=== PATIENT | male | born 1990 | race Hispanic/Latino ===

== ENCOUNTER 2019-10-01 09:03 | Inpatient (IN) | payer MEDICAID, OTHER, SELFPAY ==
[~2019-10-01] VITALS: Ht 180.3 cm; Wt 56.7 kg
[2019-10-01] MEDS ORDERED: SODIUM CHLORIDE 0.9% 1000ML 1,000 ML IV ONE ×2 (09:06→09:13)
[2019-10-01] MEDS ORDERED: ONDANSETRON HCL 4 MG/2 ML VIAL ONE (09:09)
[2019-10-01 09:50] LABS: BASOPHILS % (AUTO) 0.5 % (0.0-5.0); EOSINOPHILS % (AUTO) 1.1 % (0.0-8.0); LYMPHOCYTES % (AUTO) 7.2 % (21.0-51.0); MEAN CORPUSCULAR HEMOGLOBIN 32.5 pg (27.0-33.0); MEAN CORPUSCULAR HGB CONC 34.5 g/dL (32.0-36.0); MEAN CORPUSCULAR VOLUME 94.2 fL (79-99); MONOCYTES % (AUTO) 8.6 % (3.0-13.0); NEUTROPHILS % (AUTO) 82.2 % (40.0-77.0); PLATELET COUNT (AUTO) 240 K/uL (130-400); RED CELL DISTRIBUTION WIDTH 11.7 % (11.0-15.5); WHITE BLOOD COUNT (AUTO) 14.8 K/uL (4.8-10.8)
[2019-10-01] MEDS ORDERED: THIAMINE HCL 100 MG/ML 2ML VIAL ONE (09:50)
[2019-10-01 10:04] LABS: CREATININE 2.2 mg/dL (0.5-1.5); POTASSIUM 4.2 mmol/L (3.5-5.1)
[2019-10-01 10:11] LABS: ALBUMIN 4.4 g/dL (3.5-5.0); BILIRUBIN,TOTAL 1.8 mg/dL (0.2-1.0); TOTAL PROTEIN, SERUM 8.5 g/dL (6.0-8.3)
[2019-10-01 10:55] LABS: INR 1.12 (0.85-1.15); PARTIAL THROMBOPLASTIN TIME 28.5 SEC (26.3-35.5); PROTHROMBIN TIME 11.7 SEC (9.6-11.6)
[2019-10-01 10:57] LABS: APPEARANCE,URINE Cloudy (CLEAR); BILIRUBIN,URINE Moderate (NEGATIVE); COLOR,URINE Dark Yellow (YELLOW); GLUCOSE, URINE (UA) 500 mg/dL (NEGATIVE); KETONES,URINE 15 mg/dL (NEGATIVE); LEUKOCYTE ESTERASE ,URINE Negative (NEGATIVE); NITRATE,URINE Negative (NEGATIVE); OCCULT BLOOD,URINE Large (NEGATIVE); PH,URINE 5.5 (5.0-8.0); PROTEIN,URINE POS 2+ mg/dL (NEGATIVE)
[2019-10-01 11:01] LABS: HEMATOCRIT 60.3 % (42-54)
[2019-10-01 11:08] LABS: AMPHET/METH SCREEN,URINE NEGATIVE (NEGATIVE); BARBITURATE SCREEN, URINE NEGATIVE (NEGATIVE); BENZODIAZEPINES SCREEN,URINE NEGATIVE (NEGATIVE); CANNABINOID SCREEN,URINE NEGATIVE (NEGATIVE); COCAINE SCREEN,URINE NEGATIVE (NEGATIVE); OPIATE SCREEN,URINE NEGATIVE (NEGATIVE); PHENCYCLIDINE SCREEN,URINE NEGATIVE (NEGATIVE)
[2019-10-01] MEDS ORDERED: KETOROLAC TROMETHAMINE 30MG/ML ONE (11:10)
[2019-10-01] MEDS: SODIUM CHLORIDE 0.9% 1000ML 1,000 ML IV SCH ×2 (11:18→21:47)
[2019-10-01] MEDS ORDERED: PHARMACY COMMUNICATION MISC PRN (11:30)
[2019-10-01 11:49] LABS: MUCUS,URINE Moderate LPF (None Seen); SQUAMOUS EPITHELIAL CELL,UR Few /HPF (0-2); WBC,URINE 0-1 /HPF (0-1)
[2019-10-01 11:50] LABS: AMORPHOUS SEDIMENT,UR Few /LPF (None Seen); BACTERIA,URINE Few /HPF (None Seen)
[2019-10-01] MEDS ORDERED: HYDRALAZINE HCL 20 MG/ML VIAL ONE (11:52)
[2019-10-01] MEDS ORDERED: OSELTAMIVIR PHOSPHATE 75 MG CAP ONE (11:53)
[2019-10-01] MEDS ORDERED: HYDRALAZINE HCL 20 MG/ML VIAL IV PRN (12:00)
[2019-10-01] MEDS ORDERED: COMPOUND PO MISCELLANEOUS 1 EACH MISC MISC PRN (12:15)
[2019-10-01] MEDS ORDERED: METOPROLOL TARTRATE 1 MG/ML 5ML VIAL IV ONE (12:29)
[2019-10-01] MEDS ORDERED: FAMOTIDINE/PF 20 MG/2 ML VIAL IV ONE (13:00)
[2019-10-01 13:35] VITALS: BP 149/109
--- NOTE | 2019-10-01 14:15 | NUR ---
ER PT ADMITTED TO ROOM 319 WITH DX OF ACUTE PANCREATITIS. BANANA BAG UP AND STARTED THE INFUSION AT 100 MLHR. ASSESSMENT TO FOLLOW. ABDOMEN DISTENDED AND VERY TENDER.
[2019-10-01] MEDS: KETOROLAC TROMETHAMINE 30MG/ML IM PRN ×2 (14:27→20:59)
[2019-10-01] MEDS: THIAMINE HCL 100 MG, FOLIC ACID 1 MG, M.V.I. IV [ADULT] 10 ML in SODIUM CHLORIDE 0.9% 1... IV SCH (14:30)
[2019-10-01 16:00] VITALS: BP 148/102
[2019-10-01 19:00] VITALS: BP_SYST 158; BP_SYST 164; BP_DIAS 110; BP_DIAS 112
[2019-10-01] MEDS: FAMOTIDINE/PF 20 MG/2 ML VIAL IV SCH (20:57)
[2019-10-01] MEDS ORDERED: OSELTAMIVIR PHOSPHATE 75 MG CAP PO SCH (21:00)
[2019-10-01] MEDS ORDERED: OSELTAMIVIR PHOSPHATE 300 MG, WATER FOR INJECTION,STERILE 10 ML, COMPOUNDING VEHICLE SF... PO SCH ×3 (21:00)
[2019-10-01] MEDS: OSELTAMIVIR PHOSPHATE PO SCH ×2 (21:00)
[2019-10-01] MEDS: LORAZEPAM 2 MG/ML 1 ML VIAL IVP PRN (21:46)
[2019-10-01 23:39] VITALS: BP 131/77
[2019-10-02] VITALS (7 sets, daily range): BP systolic 135–163; BP diastolic 93–109
[2019-10-02] MEDS: ONDANSETRON HCL 4 MG/2 ML VIAL IVP PRN ×2 (01:17→15:52)
[2019-10-02] MEDS: LABETALOL HCL 5 MG/ML 20ML VIAL IV PRN ×2 (02:05→15:53)
[2019-10-02] MEDS: CEFTRIAXONE SODIUM 1 GM IVP SCH ×2 (02:17→12:30)
[2019-10-02] MEDS: SODIUM CHLORIDE 0.9% 1000ML 1,000 ML IV SCH ×3 (05:16→21:15)
[2019-10-02 05:57] LABS: BASOPHILS % (AUTO) 0.2 % (0.0-5.0); HEMATOCRIT 45.2 % (42-54); LYMPHOCYTES % (AUTO) 7.6 % (21.0-51.0); MEAN CORPUSCULAR HEMOGLOBIN 32.3 pg (27.0-33.0); MEAN CORPUSCULAR HGB CONC 33.4 g/dL (32.0-36.0); MEAN CORPUSCULAR VOLUME 96.8 fL (79-99); MONOCYTES % (AUTO) 8.2 % (3.0-13.0); NEUTROPHILS % (AUTO) 81.8 % (40.0-77.0); PLATELET COUNT (AUTO) 145 K/uL (130-400); RED BLOOD CELL COUNT(AUTO) 4.67 MIL/uL (4.50-6.20); RED CELL DISTRIBUTION WIDTH 12.3 % (11.0-15.5)
[2019-10-02 06:02] LABS: HEMOGLOBIN A1C 5.3 % (4.0-6.0)
[2019-10-02 06:35] LABS: ALBUMIN 2.8 g/dL (3.5-5.0); BILIRUBIN,DIRECT 0.3 mg/dL (0.0-0.3); BILIRUBIN,TOTAL 1.3 mg/dL (0.2-1.0); CREATININE 1.2 mg/dL (0.5-1.5); POTASSIUM 3.9 mmol/L (3.5-5.1); TOTAL PROTEIN, SERUM 5.8 g/dL (6.0-8.3)
--- NOTE | 2019-10-02 07:00 | NUR ---
PATIENT UPDATE Pt resting in bed with face flushed, afebrile, CIWA score at 19, ativan 2 mg given iv push as per protocol. Admited to drinking 6 packs per day, alert and oriented x 3. Woke up in the middle of the night confused, heart rate SVT bet 150's to 160's. Alexa Mcneill called for orders. Labetalol 10 mg given iv push, heart rate down to 120's after an hour. Medicated for pain with toradol , blood pressure initially in the 160's, hydralazine 10 mg iv. 12 lead ekg done , started pt on ceftriaxone 1 gm ivpb, iv fluid rate up to 150 cc/hr, tolerated well. Slept fairly overnight, bp more stable in the early am.ON seizure precaution bec of alcohol withdrawal symptoms, willl continue to monitor.
[2019-10-02 08:16] LABS: CRP QUANTITATIVE 215.1 mg/L (0.00-9.0)
[2019-10-02] MEDS: HYDROMORPHONE HCL 0.5 MG/0.5 ML ML IVP PRN ×4 (09:28→21:56)
--- NOTE | 2019-10-02 09:30 | NUR ---
C/O OF SOB, CHEST TIGHTNESS, 12 LEAD EKG ORDERED, PLACED ON 02 AND GIVEN 50MG OF LIBRIUM. DR. BECKER NOTIFIED AND IS NOW IN ROOM WITH PT.
[2019-10-02] MEDS: OSELTAMIVIR PHOSPHATE PO SCH ×4 (09:32→21:54)
--- NOTE | 2019-10-02 09:37 | NUR ---
HR sinus tach 120's 130's on telemetry. BP 165/113, O2 sat 97% room air. Diaphoretic, tremors noted. Placed on [address] NC[address] Not[address] Mackay, rec'd order for librium 50 mg po stat and 12v lead ekg. Orders entered and honored.
[2019-10-02] MEDS ORDERED: CHLORDIAZEPOXIDE HCL 25 MG CAP PO SCH (09:43)
--- NOTE | 2019-10-02 10:30 | NUR ---
ORDER IN PLACE TO TRANSFER PT. TO PCCU FOR CLOSER MONITORING, WILL BE GOING TO ROOM 231. REPORT CALLED IN TO AVINASH MCGHEE.
--- NOTE | 2019-10-02 11:30 | NUR ---
TRANSFERRED TO 2ND. FLOOR, ROOM 231.
--- NOTE | 2019-10-02 11:32 | NUR ---
PAGED DR. DUTTA RE:CONSULT.
--- NOTE | 2019-10-02 11:40 | NUR ---
DR. DUTTA RETURNED CALL
[2019-10-02] MEDS: PANTOPRAZOLE 40 MG/VIAL IVP SCH (12:30)
[2019-10-02] MEDS: THIAMINE HCL 100 MG, FOLIC ACID 1 MG, M.V.I. IV [ADULT] 10 ML in SODIUM CHLORIDE 0.9% 1... IV SCH (12:30)
[2019-10-02] MEDS: CHLORDIAZEPOXIDE HCL 25 MG CAP PO PRN ×2 (16:09→21:53)
--- NOTE | 2019-10-02 16:10 | NUR ---
SPOKE WITH DR. MCCLAIN AND INFORMED HIM OF THE NEW CONSULT. PER MD, TACHYCARDIA IS EXPECTED IN ACUTE PANCREATITIS AND ETOH WITHDRAWAL. INFORMED MD THAT DR. BECKER WAS ALSO CONCERNED ABOUT SHORT MS INTERVALS. MD SAID TO CALL HIM IF HEART RATE GOES TO 130'S. WILL CONTINUE TO MONITOR.
[2019-10-02] MEDS: LACTATED RINGERS 1000ML 1,000 ML IV SCH ×3 (16:15→23:44)
--- NOTE | 2019-10-02 19:12 | NUR ---
D/C PLAN CM spoke to pt regarding d/c planning. Mother at bedside. Pt is ind. with ADL's. States mother can assist in care if needed. CM provided community resources packet. Plan to home. No needs verbalized or identified. CM to f/u Addendum: 10/02/19 at 1917 by ROSA MEDELLIN CM Amended: Links added.
[2019-10-02] MEDS: FAMOTIDINE/PF 20 MG/2 ML VIAL IV SCH (21:54)
[2019-10-03] VITALS (7 sets, daily range): BP systolic 142–163; BP diastolic 81–103
[2019-10-03] MEDS: LACTATED RINGERS 1000ML 1,000 ML IV SCH ×8 (00:15→21:55)
[2019-10-03] MEDS: CEFTRIAXONE SODIUM 1 GM IVP SCH ×2 (01:38→15:12)
[2019-10-03] MEDS: HYDROMORPHONE HCL 0.5 MG/0.5 ML ML IVP PRN (01:43)
[2019-10-03] MEDS: SODIUM CHLORIDE 0.9% 1000ML 1,000 ML IV SCH ×4 (03:55→21:56)
[2019-10-03] MEDS: ONDANSETRON HCL 4 MG/2 ML VIAL IVP PRN ×3 (04:08→17:53)
[2019-10-03 04:42] LABS: ALBUMIN 2.6 g/dL (3.5-5.0); BILIRUBIN,DIRECT 0.3 mg/dL (0.0-0.3); BILIRUBIN,TOTAL 1.3 mg/dL (0.2-1.0); CREATININE 1.1 mg/dL (0.5-1.5); POTASSIUM 3.9 mmol/L (3.5-5.1); TOTAL PROTEIN, SERUM 5.5 g/dL (6.0-8.3)
[2019-10-03] MEDS: HYDROMORPHONE HCL 2 MG/ML VIAL IVP PRN ×4 (08:17→22:15)
[2019-10-03] MEDS: OSELTAMIVIR PHOSPHATE PO SCH ×4 (08:18→22:09)
[2019-10-03] MEDS: PANTOPRAZOLE 40 MG/VIAL IVP SCH (08:18)
[2019-10-03] MEDS: LORAZEPAM 2 MG/ML 1 ML VIAL IVP PRN (09:39)
[2019-10-03] MEDS ORDERED: COMPOUND IV REFRIGERATED 1 EACH IVSOLN MISC PRN (10:15)
[2019-10-03] MEDS: LABETALOL HCL 5 MG/ML 20ML VIAL IV PRN ×2 (11:00→17:59)
[2019-10-03] MEDS: THIAMINE HCL 100 MG, FOLIC ACID 1 MG, M.V.I. IV [ADULT] 10 ML in SODIUM CHLORIDE 0.9% 1... IV SCH (13:00)
[2019-10-03] MEDS: FAMOTIDINE/PF 20 MG/2 ML VIAL IV SCH (21:53)
[2019-10-04] MEDS: LACTATED RINGERS 1000ML 1,000 ML IV SCH ×6 (00:15→20:15)
[2019-10-04] MEDS: CEFTRIAXONE SODIUM 1 GM IVP SCH ×2 (00:54→13:34)
[2019-10-04] MEDS: ONDANSETRON HCL 4 MG/2 ML VIAL IVP PRN ×4 (00:54→22:24)
[2019-10-04] MEDS: LORAZEPAM 2 MG/ML 1 ML VIAL IVP PRN (01:05)
[2019-10-04] MEDS: SODIUM CHLORIDE 0.9% 1000ML 1,000 ML IV SCH (03:35)
[2019-10-04 04:26] VITALS: BP 145/81
[2019-10-04 04:39] LABS: BASOPHILS % (AUTO) 0.2 % (0.0-5.0); EOSINOPHILS % (AUTO) 0.8 % (0.0-8.0); HEMATOCRIT 35.4 % (42-54); LYMPHOCYTES % (AUTO) 10.9 % (21.0-51.0); MEAN CORPUSCULAR HEMOGLOBIN 33.1 pg (27.0-33.0); MEAN CORPUSCULAR HGB CONC 33.6 g/dL (32.0-36.0); MEAN CORPUSCULAR VOLUME 98.6 fL (79-99); NEUTROPHILS % (AUTO) 71.6 % (40.0-77.0); PLATELET COUNT (AUTO) 134 K/uL (130-400); RED BLOOD CELL COUNT(AUTO) 3.59 MIL/uL (4.50-6.20); RED CELL DISTRIBUTION WIDTH 12.3 % (11.0-15.5); WHITE BLOOD COUNT (AUTO) 9.1 K/uL (4.8-10.8)
[2019-10-04 04:53] LABS: ALBUMIN 2.3 g/dL (3.5-5.0); BILIRUBIN,DIRECT 0.4 mg/dL (0.0-0.3); BILIRUBIN,TOTAL 1.2 mg/dL (0.2-1.0); CREATININE 1.1 mg/dL (0.5-1.5); MAGNESIUM 2.1 mg/dL (1.80-2.40); PHOSPHORUS 1.2 mg/dL (2.5-4.9); POTASSIUM 3.8 mmol/L (3.5-5.1); TOTAL PROTEIN, SERUM 5.4 g/dL (6.0-8.3)
[2019-10-04] MEDS: HYDROMORPHONE HCL 0.5 MG/0.5 ML ML IVP PRN ×4 (06:03→22:25)
[2019-10-04 08:21] VITALS: BP 142/93
[2019-10-04] MEDS: PANTOPRAZOLE 40 MG/VIAL IVP SCH (10:28)
[2019-10-04] MEDS: OSELTAMIVIR PHOSPHATE PO SCH ×4 (10:30→20:05)
[2019-10-04 12:10] VITALS: BP 152/83
[2019-10-04] MEDS ORDERED: SODIUM CHLORIDE 0.9% 50 ML IV ONE (13:29)
[2019-10-04] MEDS: NEUTRA-PHOS PACKET 1 EACH PO SCH ×3 (13:35→20:13)
[2019-10-04 15:59] VITALS: BP 145/90
[2019-10-04] MEDS ORDERED: LOPERAMIDE 1 MG/7.5 ML UDCUP PO SCH (17:15)
[2019-10-04] MEDS ORDERED: LOPERAMIDE HCL 2 MG CAP PO SCH (17:15)
--- NOTE | 2019-10-04 17:31 | NUR ---
TRANSFER REPORT REPORT CALLED TO DELIA DA SILVA. PATIENT BEING TRANSFERRED TO ROOM 424. PATIENT IS ON TELEMETRY MONITORING AND HAS BEEN RUNNING SINUS TACHY IN 110'S.
[2019-10-04 19:00] VITALS: BP 129/77
[2019-10-04] MEDS: FAMOTIDINE/PF 20 MG/2 ML VIAL IV SCH (20:05)
[2019-10-04] MEDS ORDERED: LOPERAMIDE HCL 2 MG CAP PO PRN (21:00)
--- NOTE | 2019-10-04 22:25 | NUR ---
PAIN/NAUSEA Pt requesting medication for pain and nausea,medicated with Dilaudid and Zofran iv.
[2019-10-04 23:00] VITALS: BP 137/89
--- NOTE | 2019-10-04 23:15 | NUR ---
MED EFFECT Pt resting quietly,denies pain or discomfort.
--- NOTE | 2019-10-04 23:18 | NUR ---
SINUS TACH Pt.s sinus tachy 108 as per radiation monitor.
[2019-10-05] MEDS: CEFTRIAXONE SODIUM 1 GM IVP SCH ×2 (01:41→14:25)
[2019-10-05] MEDS: HYDROMORPHONE HCL 0.5 MG/0.5 ML ML IVP PRN (02:57)
[2019-10-05 03:00] VITALS: BP 141/85
[2019-10-05 05:18] LABS: BASOPHILS % (AUTO) 0.3 % (0.0-5.0); EOSINOPHILS % (AUTO) 1.5 % (0.0-8.0); HEMATOCRIT 33.3 % (42-54); LYMPHOCYTES % (AUTO) 12.3 % (21.0-51.0); MEAN CORPUSCULAR HEMOGLOBIN 32.7 pg (27.0-33.0); MEAN CORPUSCULAR HGB CONC 33.3 g/dL (32.0-36.0); MEAN CORPUSCULAR VOLUME 98.2 fL (79-99); MONOCYTES % (AUTO) 18.8 % (3.0-13.0); NEUTROPHILS % (AUTO) 65.5 % (40.0-77.0); PLATELET COUNT (AUTO) 167 K/uL (130-400); RED BLOOD CELL COUNT(AUTO) 3.39 MIL/uL (4.50-6.20); RED CELL DISTRIBUTION WIDTH 12.1 % (11.0-15.5); WHITE BLOOD COUNT (AUTO) 9.4 K/uL (4.8-10.8)
[2019-10-05 05:29] LABS: ALBUMIN 2.2 g/dL (3.5-5.0); BILIRUBIN,DIRECT 0.3 mg/dL (0.0-0.3); BILIRUBIN,TOTAL 0.9 mg/dL (0.2-1.0); CREATININE 1.1 mg/dL (0.5-1.5); MAGNESIUM 2.1 mg/dL (1.80-2.40); PHOSPHORUS 2.5 mg/dL (2.5-4.9); POTASSIUM 3.4 mmol/L (3.5-5.1); TOTAL PROTEIN, SERUM 5.1 g/dL (6.0-8.3)
[2019-10-05] MEDS: LACTATED RINGERS 1000ML 1,000 ML IV SCH ×2 (05:38→16:14)
[2019-10-05] MEDS: CHLORDIAZEPOXIDE HCL 25 MG CAP PO PRN (05:41)
[2019-10-05 07:30] VITALS: BP 146/80
[2019-10-05] MEDS: NEUTRA-PHOS PACKET 1 EACH PO SCH ×3 (09:22→18:37)
[2019-10-05] MEDS: OSELTAMIVIR PHOSPHATE PO SCH ×4 (09:24→20:22)
[2019-10-05] MEDS: PANTOPRAZOLE 40 MG/VIAL IVP SCH (09:24)
[2019-10-05] MEDS: HYDROMORPHONE HCL 2 MG/ML VIAL IVP PRN ×3 (09:28→22:48)
[2019-10-05] MEDS: ONDANSETRON HCL 4 MG/2 ML VIAL IVP PRN ×3 (09:28→22:47)
[2019-10-05 11:00] VITALS: BP 130/89
[2019-10-05 11:23] LABS: AMYLASE 141 U/L (25-115); LIPASE 652 U/L (114-286)
[2019-10-05 16:00] VITALS: BP 144/91
[2019-10-05 19:00] VITALS: BP 146/99
[2019-10-05] MEDS: FAMOTIDINE/PF 20 MG/2 ML VIAL IV SCH (20:22)
--- NOTE | 2019-10-05 20:25 | NUR ---
MEDS SHIFT ASSESSMENT DONE, PLEASE REFER TO CHART. DUE MEDS ADMINISTERED, TOLERATED WELL. KEPT RESTED AND COMFORTABLE IN BED. WILL MONITOR PT. CALL LIGHT WITHIN REACH. Addendum: 10/06/19 at 0122 by BRAD CHIRINOS RN RN Amended: Links added.
--- NOTE | 2019-10-05 22:48 | NUR ---
PAIN PT COMPLAINTS OF ABDOMINAL PAINS AND UPSET STOMACH. MEDICATED WITH DILAUDID AND ZOFRAN IV. KEPT NPO ORDERED. WILL RE-ASSESS PT.
[2019-10-06] VITALS: BP 143/92
[2019-10-06] MEDS: CEFTRIAXONE SODIUM 1 GM IVP SCH ×2 (00:57→15:29)
--- NOTE | 2019-10-06 01:05 | NUR ---
PAIN PT CALLS AND CLAIMS OF ABDOMINAL PAINS AND INABILITY TO PASS GAS. WARM PACKS APPLIED TO THE ABDOMEN. PAGED AJ, HOSPICE LIAISON HOSPITALIST DUST PULLER, VIA ANSWERING SERVICE. HOSPICE LIAISON CALLED BACK WITH NEW MED ORDER. MEDICATED PT.
[2019-10-06] MEDS ORDERED: KETOROLAC TROMETHAMINE 15MG/ML ONE (01:08)
[2019-10-06] MEDS ORDERED: KETOROLAC TROMETHAMINE 15MG/ML IV ONE (01:15)
[2019-10-06] MEDS: LACTATED RINGERS 1000ML 1,000 ML IV SCH ×3 (02:08→22:15)
[2019-10-06 04:00] VITALS: BP 134/88
[2019-10-06 04:51] LABS: BASOPHILS % (AUTO) 0.4 % (0.0-5.0); EOSINOPHILS % (AUTO) 2.1 % (0.0-8.0); HEMATOCRIT 33.3 % (42-54); LYMPHOCYTES % (AUTO) 16.5 % (21.0-51.0); MEAN CORPUSCULAR HEMOGLOBIN 32.6 pg (27.0-33.0); MEAN CORPUSCULAR HGB CONC 33.3 g/dL (32.0-36.0); MEAN CORPUSCULAR VOLUME 97.9 fL (79-99); MONOCYTES % (AUTO) 19.7 % (3.0-13.0); NEUTROPHILS % (AUTO) 57.8 % (40.0-77.0); PLATELET COUNT (AUTO) 215 K/uL (130-400); RED CELL DISTRIBUTION WIDTH 12.1 % (11.0-15.5); WHITE BLOOD COUNT (AUTO) 10.3 K/uL (4.8-10.8)
[2019-10-06 05:24] LABS: POTASSIUM 3.5 mmol/L (3.5-5.1)
--- NOTE | 2019-10-06 05:32 | NUR ---
ROUNDS PT IS RESTING WELL, FAIRLY ASLEEP. NO DISTRESS NOTED. KEPT COMFORTABLE AND UNDISTURBED. FOR MORE CARE.
[2019-10-06 07:30] VITALS: BP 142/95
[2019-10-06] MEDS: PANTOPRAZOLE 40 MG/VIAL IVP SCH (08:42)
[2019-10-06 11:00] VITALS: BP 147/94
[2019-10-06] MEDS: OSELTAMIVIR PHOSPHATE PO SCH ×2 (15:29)
[2019-10-06 16:00] VITALS: BP 140/85
[2019-10-06] MEDS ORDERED: IOHEXOL 350 MG/ML 100ML INFUS..BTL IV ONE (17:12)
[2019-10-06 19:00] VITALS: BP 150/90
[2019-10-06] MEDS: ONDANSETRON HCL 4 MG/2 ML VIAL IVP PRN (20:31)
[2019-10-06] MEDS: FAMOTIDINE/PF 20 MG/2 ML VIAL IV SCH (20:31)
[2019-10-06] MEDS: HYDROMORPHONE HCL 0.5 MG/0.5 ML ML IVP PRN (20:32)
[2019-10-06] MEDS: SIMETHICONE 80 MG TAB.CHEW PO PRN (23:46)
[2019-10-07] VITALS: BP 140/90
[2019-10-07] MEDS: CEFTRIAXONE SODIUM 1 GM IVP SCH (02:28)
[2019-10-07 04:00] VITALS: BP 165/94
[2019-10-07 04:20] LABS: HEMATOCRIT 32.7 % (42-54); MEAN CORPUSCULAR HGB CONC 34.3 g/dL (32.0-36.0); MEAN CORPUSCULAR VOLUME 96.5 fL (79-99); PLATELET COUNT (AUTO) 264 K/uL (130-400); RED BLOOD CELL COUNT(AUTO) 3.39 MIL/uL (4.50-6.20); RED CELL DISTRIBUTION WIDTH 12.3 % (11.0-15.5); WHITE BLOOD COUNT (AUTO) 11.8 K/uL (4.8-10.8)
[2019-10-07 04:27] LABS: BAND NEUTROPHILS % (MANUAL) 7 % (0-2); LYMPHOCYTES % (MANUAL) 10 % (22-44); MAN.DIFF COMMENT-IMPRESSION MANUAL DIFFERENTIAL; MONOCYTES % (MANUAL) 3 % (2-9); SEGMENTED NEUTROPHILS % 80 % (40-70)
[2019-10-07 04:28] LABS: PLATELET MORPHOLOGY COMMENT ADEQUATE
[2019-10-07] MEDS ORDERED: LIDOCAINE 5% TOPICAL PATCH TP ONE ×2 (04:30→06:27)
[2019-10-07 04:36] LABS: POTASSIUM 3.3 mmol/L (3.5-5.1)
[2019-10-07] MEDS: ONDANSETRON HCL 4 MG/2 ML VIAL IVP PRN ×2 (04:54→11:18)
[2019-10-07] MEDS: LACTATED RINGERS 1000ML 1,000 ML IV SCH ×3 (04:55→23:21)
[2019-10-07] MEDS: HYDROMORPHONE HCL 2 MG/ML VIAL IVP PRN (04:55)
[2019-10-07 08:00] VITALS: BP 138/87
[2019-10-07] MEDS: PANTOPRAZOLE 40 MG/VIAL IVP SCH (09:04)
[2019-10-07] MEDS: HYDROMORPHONE HCL 0.5 MG/0.5 ML ML IVP PRN ×3 (11:18→20:56)
[2019-10-07] MEDS ORDERED: LIDOCAINE HCL-MPF 1% 2ML VIAL IV PRN (11:45)
[2019-10-07 11:52] VITALS: BP 140/88
[2019-10-07 11:58] LABS: AMYLASE 148 U/L (25-115); LIPASE 1004 U/L (114-286)
[2019-10-07] MEDS: MEROPENEM 1 GM VIAL IVP SCH ×2 (12:44→20:48)
--- NOTE | 2019-10-07 14:19 | NUR ---
NUTRITION RECOMMENDATIONS SEVERE ALCOHOLIC PANCREATITIS. NPO X 6 DAYS. LABS REVIEWED (LIPASE TRENDING DOWN SLOWLY). MEDS REVIEWED. LBM: 10/05. SKIN IS INTACT. RD RECOMMENDS TO START PPN USING CLINIMIX 4.25/5 AT 75ML/HR RUN LIPID PANEL THU-THU-THU ADD 10ML MULTIVITAMINS RECOMMEND THIAMINE SUPPLEMENT DAILY MONITOR K, P, MG, BG, TG, CMP RD WILL CONTINUE TO MONITOR AND FOLLOW UP Addendum: 10/07/19 at [address] Amended: Links added.
[2019-10-07 16:00] VITALS: BP 147/90
[2019-10-07] MEDS: POTASSIUM CHLORIDE 20MEQ/100ML 100 ML IV PRN ×2 (16:05→23:21)
[2019-10-07 19:30] VITALS: BP 158/99
[2019-10-07] MEDS: FAMOTIDINE/PF 20 MG/2 ML VIAL IV SCH (22:54)
[2019-10-08] VITALS: BP 140/92
[2019-10-08] MEDS: HYDROMORPHONE HCL 0.5 MG/0.5 ML ML IVP PRN ×4 (01:30→19:36)
[2019-10-08] MEDS: MEROPENEM 1 GM VIAL IVP SCH ×3 (03:34→19:35)
[2019-10-08 04:00] VITALS: BP 142/87
[2019-10-08 05:42] LABS: BASOPHILS % (AUTO) 0.3 % (0.0-5.0); EOSINOPHILS % (AUTO) 2.2 % (0.0-8.0); HEMATOCRIT 34.1 % (42-54); LYMPHOCYTES % (AUTO) 13.8 % (21.0-51.0); MEAN CORPUSCULAR HEMOGLOBIN 32.9 pg (27.0-33.0); MEAN CORPUSCULAR HGB CONC 33.4 g/dL (32.0-36.0); MEAN CORPUSCULAR VOLUME 98.3 fL (79-99); MONOCYTES % (AUTO) 15.1 % (3.0-13.0); NEUTROPHILS % (AUTO) 65.4 % (40.0-77.0); PLATELET COUNT (AUTO) 320 K/uL (130-400); RED BLOOD CELL COUNT(AUTO) 3.47 MIL/uL (4.50-6.20); RED CELL DISTRIBUTION WIDTH 12.5 % (11.0-15.5); WHITE BLOOD COUNT (AUTO) 12.1 K/uL (4.8-10.8)
[2019-10-08 06:00] LABS: POTASSIUM 3.4 mmol/L (3.5-5.1)
[2019-10-08 08:58] VITALS: BP 136/89
[2019-10-08] MEDS ORDERED: M.V.I. IV [ADULT] 10 ML in CLINIMIX E 4.25%-5% SOLUTION 2,000 ML IV SCH (09:00)
[2019-10-08] MEDS: PANTOPRAZOLE 40 MG/VIAL IVP SCH (09:19)
[2019-10-08] MEDS: SIMETHICONE 80 MG TAB.CHEW PO PRN (09:43)
[2019-10-08] MEDS: ONDANSETRON HCL 4 MG/2 ML VIAL IVP PRN ×2 (09:43→13:56)
[2019-10-08] MEDS ORDERED: MAGNESIUM 2GM PREMIX 50ML 50 ML IV PRN (09:45)
[2019-10-08] MEDS ORDERED: POTASSIUM CHLORIDE 20 MEQ ERTAB PO PRN (09:45)
[2019-10-08 12:00] VITALS: BP 144/80
[2019-10-08] MEDS ORDERED: LORAZEPAM 1 MG TABLET PO PRN (12:30)
[2019-10-08] MEDS: LACTATED RINGERS 1000ML 1,000 ML IV SCH (14:03)
[2019-10-08 16:30] VITALS: BP 144/88
[2019-10-08] MEDS: FAMOTIDINE/PF 20 MG/2 ML VIAL IV SCH (19:35)
[2019-10-08 20:00] VITALS: BP 144/89
[2019-10-08] MEDS: POTASSIUM CHLORIDE 10MEQ/100ML 100 ML IV PRN (23:43)
[2019-10-08] MEDS: LIDOCAINE HCL-MPF 1% 2ML VIAL IV PRN (23:43)
[2019-10-09] VITALS: BP 144/96
[2019-10-09] MEDS: LACTATED RINGERS 1000ML 1,000 ML IV SCH ×2 (00:15→09:34)
[2019-10-09] MEDS: HYDROMORPHONE HCL 0.5 MG/0.5 ML ML IVP PRN ×4 (02:06→21:27)
[2019-10-09 04:00] VITALS: BP 134/86
[2019-10-09] MEDS: MEROPENEM 1 GM VIAL IVP SCH ×3 (04:53→21:27)
[2019-10-09 05:22] LABS: BASOPHILS % (AUTO) 0.4 % (0.0-5.0); HEMATOCRIT 37.8 % (42-54); MEAN CORPUSCULAR HEMOGLOBIN 32.5 pg (27.0-33.0); MEAN CORPUSCULAR HGB CONC 33.6 g/dL (32.0-36.0); MEAN CORPUSCULAR VOLUME 96.7 fL (79-99); MONOCYTES % (AUTO) 11.9 % (3.0-13.0); NEUTROPHILS % (AUTO) 71.2 % (40.0-77.0); PLATELET COUNT (AUTO) 370 K/uL (130-400); RED BLOOD CELL COUNT(AUTO) 3.91 MIL/uL (4.50-6.20); RED CELL DISTRIBUTION WIDTH 12.3 % (11.0-15.5); WHITE BLOOD COUNT (AUTO) 12.9 K/uL (4.8-10.8)
[2019-10-09 05:53] LABS: MAGNESIUM 2.5 mg/dL (1.80-2.40); POTASSIUM 3.5 mmol/L (3.5-5.1)
[2019-10-09 08:00] VITALS: BP 130/80
[2019-10-09] MEDS: PANTOPRAZOLE 40 MG/VIAL IVP SCH (09:05)
[2019-10-09] MEDS: ONDANSETRON HCL 4 MG/2 ML VIAL IVP PRN ×2 (10:00→16:39)
[2019-10-09 11:32] VITALS: BP 127/82
[2019-10-09] MEDS: LORAZEPAM 2 MG/ML 1 ML VIAL IVP PRN (11:58)
[2019-10-09] MEDS ORDERED: M.V.I. IV [ADULT] 10 ML in CLINIMIX E 4.25%-5% SOLUTION 2,000 ML IV SCH (15:15)
--- NOTE | 2019-10-09 15:24 | NUR ---
DR TRA MILLER WAS CALL TO NOTIFY ABOUT REEVALUATION OF PT. HE ORDER TO CONTINUE WITH CURRENT TREATMENT KEEPING THE PT NPO, ANTIBIOTICS AND PPN DIET IT IS.
[2019-10-09 16:00] VITALS: BP 142/95
[2019-10-09 19:25] VITALS: BP 141/94
[2019-10-09] MEDS: FAMOTIDINE/PF 20 MG/2 ML VIAL IV SCH (21:27)
[2019-10-10] VITALS: BP 144/89
[2019-10-10 03:40] VITALS: BP 125/71
[2019-10-10] MEDS: MEROPENEM 1 GM VIAL IVP SCH ×3 (03:40→22:01)
[2019-10-10 05:16] LABS: BASOPHILS % (AUTO) 0.4 % (0.0-5.0); EOSINOPHILS % (AUTO) 2.5 % (0.0-8.0); HEMATOCRIT 38.3 % (42-54); LYMPHOCYTES % (AUTO) 15.2 % (21.0-51.0); MEAN CORPUSCULAR HEMOGLOBIN 32.8 pg (27.0-33.0); MEAN CORPUSCULAR HGB CONC 33.7 g/dL (32.0-36.0); MEAN CORPUSCULAR VOLUME 97.5 fL (79-99); MONOCYTES % (AUTO) 13.8 % (3.0-13.0); NEUTROPHILS % (AUTO) 65.6 % (40.0-77.0); PLATELET COUNT (AUTO) 366 K/uL (130-400); RED BLOOD CELL COUNT(AUTO) 3.93 MIL/uL (4.50-6.20); RED CELL DISTRIBUTION WIDTH 12.2 % (11.0-15.5); WHITE BLOOD COUNT (AUTO) 12.6 K/uL (4.8-10.8)
[2019-10-10 05:48] LABS: CREATININE 1.1 mg/dL (0.5-1.5); POTASSIUM 3.5 mmol/L (3.5-5.1)
[2019-10-10] MEDS: LACTATED RINGERS 1000ML 1,000 ML IV SCH ×4 (06:15→22:01)
[2019-10-10 08:00] VITALS: BP 134/93
[2019-10-10] MEDS: LORAZEPAM 2 MG/ML 1 ML VIAL IVP PRN (11:10)
[2019-10-10] MEDS: ONDANSETRON HCL 4 MG/2 ML VIAL IVP PRN ×2 (11:10→17:22)
[2019-10-10] MEDS: HYDROMORPHONE HCL 2 MG/ML VIAL IVP PRN ×2 (11:10→17:22)
[2019-10-10] MEDS: PANTOPRAZOLE 40 MG/VIAL IVP SCH (11:11)
[2019-10-10 11:58] VITALS: BP 135/90
[2019-10-10 16:00] VITALS: BP 129/82
--- NOTE | 2019-10-10 16:25 | NUR ---
NUTRITION RECOMMENDATIONS PT IS CURRENTLY RECEIVING PERIPHERAL PARENTERAL NUTRITION (PPN) USING CLINIMIX 4.25/5 AT 75ML/HR. DX SEVERE PANCREATITIS AND NOW PANCREATIC NECROSIS AND PSEUDOCYST FORMATION. MAY CONSIDER NASOJEJUNAL FEEDING TO START ENTERAL FEEDS TO REDUCE JAMIL OF INFECTION, PER MD RECOMMENDATIONS. LABS REVIEWED. MEDS REVIEWED. SKIN IS INTACT. TPN VS NASOJEJUNAL FEEDINGS. RD RECOMMENDS TO CONTINUE PPN RECOMMENDATIONS RN STATED PT MAY NEED PARENTERAL NUTRITION FOR A LONGER PERIOD OF TIME - RD RECOMMENDS TO CONSIDER TPN VIA PICC LINE VS NASOJEJUNAL PLACEMENT, RN NOTIFIED AND WILL CONSULT WITH MD RD WILL CONTINUE TO MONITOR AND FOLLOW UP, THANK YOU. Addendum: 10/10/19 at [address] Amended: Links added.
[2019-10-10 19:00] VITALS: BP 129/83
[2019-10-10] MEDS: FAMOTIDINE/PF 20 MG/2 ML VIAL IV SCH (22:01)
[2019-10-10] MEDS: M.V.I. IV [ADULT] 10 ML in CLINIMIX E 4.25%-5% SOLUTION 2,000 ML IV SCH (22:09)
[2019-10-11] VITALS: BP 130/94
[2019-10-11] MEDS: ONDANSETRON HCL 4 MG/2 ML VIAL IVP PRN ×4 (01:04→22:21)
[2019-10-11] MEDS: HYDROMORPHONE HCL 2 MG/ML VIAL IVP PRN ×4 (01:04→22:21)
[2019-10-11 03:58] LABS: BASOPHILS % (AUTO) 0.3 % (0.0-5.0); EOSINOPHILS % (AUTO) 2.4 % (0.0-8.0); HEMATOCRIT 36.2 % (42-54); LYMPHOCYTES % (AUTO) 15.9 % (21.0-51.0); MEAN CORPUSCULAR HEMOGLOBIN 32.7 pg (27.0-33.0); MEAN CORPUSCULAR HGB CONC 33.1 g/dL (32.0-36.0); MEAN CORPUSCULAR VOLUME 98.6 fL (79-99); MONOCYTES % (AUTO) 11.5 % (3.0-13.0); NEUTROPHILS % (AUTO) 67.5 % (40.0-77.0); PLATELET COUNT (AUTO) 359 K/uL (130-400); RED BLOOD CELL COUNT(AUTO) 3.67 MIL/uL (4.50-6.20); RED CELL DISTRIBUTION WIDTH 11.9 % (11.0-15.5); WHITE BLOOD COUNT (AUTO) 11.9 K/uL (4.8-10.8)
[2019-10-11 04:00] VITALS: BP 129/83
[2019-10-11 04:37] LABS: POTASSIUM 4.3 mmol/L (3.5-5.1)
[2019-10-11] MEDS: MEROPENEM 1 GM VIAL IVP SCH ×3 (05:04→20:35)
[2019-10-11 08:05] VITALS: BP 115/87
[2019-10-11] MEDS: PANTOPRAZOLE 40 MG/VIAL IVP SCH (09:55)
[2019-10-11 11:48] VITALS: BP 122/88
[2019-10-11] MEDS: LACTATED RINGERS 1000ML 1,000 ML IV SCH ×2 (12:15→20:35)
--- NOTE | 2019-10-11 15:30 | NUR ---
DR. DUTTA CALLED RE; PLAN GAVE REPORT OF MRCP AND RECOMMENDATIONS OF NEWSPAPER JOURNALIST, STATES LETS TO A EGD W/MAC WITH NASAL JEJUNOSTOMY TUBE PLACEMENT AT 1000AM BY DR. MONTE.
[2019-10-11 16:00] VITALS: BP 130/93
--- NOTE | 2019-10-11 17:56 | NUR ---
NOTE MADE OF PLAN OF ENTERAL FEEDINGS. BOB STAND BY FOR FURTHER RECOMMENDATIONS. WILL BE AVAILABLE TO ASSIST WITH RODRIGUEZ TUBE FEEDINGS IF PATIENT NEEDS ON DISCHARGE
[2019-10-11 19:00] VITALS: BP 128/78
--- NOTE | 2019-10-11 19:09 | NUR ---
DR. DUTTA CALLED STATES CANCEL EGD AND CONSULT RADIOLOGY FOR NASAL JEJUNOSTOMY TUBE PLACEMENT FOR FEEDINGS. STATES HE DOES NOT WANT TO PUT PATIENT TROUGH ANESTHESIA.
[2019-10-11] MEDS ORDERED: M.V.I. IV [ADULT] 10 ML in CLINIMIX E 4.25%-5% SOLUTION 2,000 ML IV SCH (19:45)
[2019-10-11] MEDS: M.V.I. IV [ADULT] 10 ML in CLINIMIX E 4.25%-5% SOLUTION 2,000 ML IV SCH (20:35)
[2019-10-11] MEDS: FAMOTIDINE/PF 20 MG/2 ML VIAL IV SCH (20:35)
[2019-10-11] MEDS: LORAZEPAM 2 MG/ML 1 ML VIAL IVP PRN (23:26)
[2019-10-12] VITALS (7 sets, daily range): BP systolic 117–130; BP diastolic 62–95
[2019-10-12] MEDS: MEROPENEM 1 GM VIAL IVP SCH ×3 (04:08→20:23)
[2019-10-12 05:28] LABS: INR 1.03 (0.85-1.15); PARTIAL THROMBOPLASTIN TIME 27.5 SEC (26.3-35.5); PROTHROMBIN TIME 10.8 SEC (9.6-11.6)
[2019-10-12] MEDS: ONDANSETRON HCL 4 MG/2 ML VIAL IVP PRN ×3 (09:23→22:08)
[2019-10-12] MEDS: HYDROMORPHONE HCL 2 MG/ML VIAL IVP PRN ×3 (09:24→22:08)
[2019-10-12] MEDS: PANTOPRAZOLE 40 MG/VIAL IVP SCH (09:24)
[2019-10-12] MEDS: LORAZEPAM 2 MG/ML 1 ML VIAL IVP PRN (11:43)
[2019-10-12] MEDS: LACTATED RINGERS 1000ML 1,000 ML IV SCH ×2 (12:55→20:05)
[2019-10-12] MEDS ORDERED: LIDOCAINE HCL 2% VISCOUS 15 ML UDCUP ONE (13:46)
[2019-10-12] MEDS ORDERED: DIATR MEGLU/DIATRIZOATE SODIUM 30 ML BOTTLE ONE (14:00)
--- NOTE | 2019-10-12 15:09 | NUR ---
TUBE FEEDING RECOMMENDATIONS NASOJEJUNAL TUBE (NJT) PLACED TODAY 10/12, PROPER TUBE PLACEMENT BEEN CONFIRMED BY RADIOLOGY. LABS REVIEWED. MEDS REVIEWED. SKIN IS INTACT. RD RECOMMENDS TO DISCONTINUE PARENTERAL NUTRITION START ENTERAL NUTRITION USING PIVOT 1.5 VIA NJT START FULL STRENGTH AT 20ML/HR - INCREASE RATE BY 5ML EVERY 5 HRS TOLERATED GOAL RATE IS 35ML/HR, FLUSH WITH 330ML Q6HRS IF PT TOLERATES WELL, MAY SWITCH TO A STANDARD POLYMERIC FORMULA SUCH JEVITY 1.5 MONITOR RESIDUALS, LABS, BM MONITOR WEIGHT CHANGES, RN NOTIFIED TO RE WEIGHT PT RD WILL CONTINUE TO MONITOR AND FOLLOW UP, THANK YOU. Addendum: 10/12/19 at [address] Amended: Links added.
[2019-10-12] MEDS: FAMOTIDINE/PF 20 MG/2 ML VIAL IV SCH (20:17)
[2019-10-13 04:00] VITALS: BP 125/78
[2019-10-13] MEDS: LACTATED RINGERS 1000ML 1,000 ML IV SCH ×2 (04:16→16:36)
[2019-10-13] MEDS: MEROPENEM 1 GM VIAL IVP SCH ×3 (04:16→19:53)
[2019-10-13 04:32] LABS: BASOPHILS % (AUTO) 0.4 % (0.0-5.0); EOSINOPHILS % (AUTO) 3.1 % (0.0-8.0); HEMATOCRIT 34.5 % (42-54); LYMPHOCYTES % (AUTO) 24.5 % (21.0-51.0); MEAN CORPUSCULAR HEMOGLOBIN 32.4 pg (27.0-33.0); MEAN CORPUSCULAR HGB CONC 32.8 g/dL (32.0-36.0); MEAN CORPUSCULAR VOLUME 98.9 fL (79-99); MONOCYTES % (AUTO) 12.9 % (3.0-13.0); NEUTROPHILS % (AUTO) 57.3 % (40.0-77.0); PLATELET COUNT (AUTO) 361 K/uL (130-400); RED BLOOD CELL COUNT(AUTO) 3.49 MIL/uL (4.50-6.20); RED CELL DISTRIBUTION WIDTH 11.8 % (11.0-15.5); WHITE BLOOD COUNT (AUTO) 9.6 K/uL (4.8-10.8)
[2019-10-13 05:08] LABS: POTASSIUM 3.7 mmol/L (3.5-5.1)
[2019-10-13 08:23] VITALS: BP 117/74
[2019-10-13] MEDS: ONDANSETRON HCL 4 MG/2 ML VIAL IVP PRN ×2 (09:34→19:54)
[2019-10-13] MEDS: PANTOPRAZOLE 40 MG/VIAL IVP SCH (09:34)
[2019-10-13] MEDS: HYDROMORPHONE HCL 2 MG/ML VIAL IVP PRN ×2 (09:34→19:54)
[2019-10-13 10:39] LABS: BASOPHILS % (AUTO) 0.5 % (0.0-5.0); HEMATOCRIT 36.1 % (42-54); LYMPHOCYTES % (AUTO) 14.1 % (21.0-51.0); MEAN CORPUSCULAR HEMOGLOBIN 32.3 pg (27.0-33.0); MEAN CORPUSCULAR HGB CONC 32.4 g/dL (32.0-36.0); MEAN CORPUSCULAR VOLUME 99.7 fL (79-99); MONOCYTES % (AUTO) 9.4 % (3.0-13.0); NEUTROPHILS % (AUTO) 72.2 % (40.0-77.0); PLATELET COUNT (AUTO) 377 K/uL (130-400); RED BLOOD CELL COUNT(AUTO) 3.62 MIL/uL (4.50-6.20); RED CELL DISTRIBUTION WIDTH 11.7 % (11.0-15.5); WHITE BLOOD COUNT (AUTO) 9.8 K/uL (4.8-10.8)
[2019-10-13 10:47] LABS: POTASSIUM 4.5 mmol/L (3.5-5.1)
[2019-10-13 11:20] VITALS: BP 124/67
[2019-10-13] MEDS: LORAZEPAM 2 MG/ML 1 ML VIAL IVP PRN ×2 (11:26→22:10)
--- NOTE | 2019-10-13 12:27 | NUR ---
DISCONTINUE TELE PER DEIDRA DEJESUS NP
--- NOTE | 2019-10-13 15:14 | NUR ---
RD FOLLOW UP NJT IN PLACE. PT IS CURRENTLY ON ELEMENTAL FORMULA: PIVOT VIA NJT. PT REPORTS FEELING BLOATED AND FULL AFTER MEALS AND FLUSHES. LBM: 10/13, STATES HAVING 6 LOOSE STOOLS TODAY. LABS REVIEWED. MEDS REVIEWED. SKIN IS INTACT. RD RECOMMENDS TO CONTINUE USING PIVOT HOWEVER, DECREASE RATE TO 15ML/HR FOR THE FIRST 24HRS INCREASE RATE BY 5MLS EVERY 5HRS TOLERATED AFTER 24HRS GOAL RATE IS 35ML/HR CHANGE FLUSHES TO 220ML Q4HRS, RN NOTIFIED CONTINUE TO MONITOR TOLERANCE, RESIDUALS, LABS, BM IF PT TOLERATES WELL, WILL CHANGE TO STANDARD FORMULA: JEVITY 1.5 (WE DO NOT CARRY JEVITY 1.2 IN HOUSE) IF PT TOLERATES JEVITY 1.5, RECOMMEND PT TO GO HOME ON JEVITY 1.2 RD WILL CONTINUE TO MONITOR AND FOLLOW UP, THANK YOU. Addendum: 10/13/19 at [address] Amended: Links added.
[2019-10-13 16:00] VITALS: BP 124/73
[2019-10-13 19:27] VITALS: BP 132/85
[2019-10-13] MEDS: FAMOTIDINE/PF 20 MG/2 ML VIAL IV SCH (19:54)
[2019-10-13 23:31] VITALS: BP 116/70
[2019-10-14] MEDS: MEROPENEM 1 GM VIAL IVP SCH ×3 (03:30→20:43)
[2019-10-14 03:57] VITALS: BP 115/70
[2019-10-14 04:38] LABS: BASOPHILS % (AUTO) 0.4 % (0.0-5.0); EOSINOPHILS % (AUTO) 2.6 % (0.0-8.0); HEMATOCRIT 36.8 % (42-54); LYMPHOCYTES % (AUTO) 23.4 % (21.0-51.0); MEAN CORPUSCULAR HEMOGLOBIN 32.2 pg (27.0-33.0); MEAN CORPUSCULAR HGB CONC 32.1 g/dL (32.0-36.0); MEAN CORPUSCULAR VOLUME 100.3 fL (79-99); MONOCYTES % (AUTO) 11.1 % (3.0-13.0); PLATELET COUNT (AUTO) 388 K/uL (130-400); RED BLOOD CELL COUNT(AUTO) 3.67 MIL/uL (4.50-6.20); RED CELL DISTRIBUTION WIDTH 11.8 % (11.0-15.5)
[2019-10-14 05:13] LABS: CREATININE 1.1 mg/dL (0.5-1.5); POTASSIUM 3.6 mmol/L (3.5-5.1)
[2019-10-14 08:19] VITALS: BP 123/85
[2019-10-14] MEDS: PANTOPRAZOLE 40 MG/VIAL IVP SCH (09:12)
[2019-10-14] MEDS: ONDANSETRON HCL 4 MG/2 ML VIAL IVP PRN ×2 (09:12→20:44)
[2019-10-14] MEDS: LACTATED RINGERS 1000ML 1,000 ML IV SCH (09:12)
[2019-10-14] MEDS: HYDROMORPHONE HCL 0.5 MG/0.5 ML ML IVP PRN (09:13)
[2019-10-14] MEDS: POTASSIUM CHLORIDE 10MEQ/100ML 100 ML IV PRN (09:26)
[2019-10-14] MEDS: LORAZEPAM 2 MG/ML 1 ML VIAL IVP PRN ×2 (10:54→23:28)
[2019-10-14 12:07] VITALS: BP 126/71
--- NOTE | 2019-10-14 14:50 | NUR ---
RD FOLLOW UP SPOKE TO PT - BM IMPROVING. PT STATED HAVING ONE LOOSE STOOL TODAY UNLIKE YESTERDAY WHEN HE HAD 6 LOOSE STOOLS BACK TO BACK. PT CLAIMS TO BE TOLERATING TF RECOMMENDATIONS WELL AND STATED THAT Q4 FLUSHES WORKED WELL. RD RECOMMENDS TO CONTINUE CURRENT TUBE FEEDING RECOMMENDATIONS - INCREASE RATE BY 5MLS EVERY 5HRS TOLERATED UNTIL GOAL RATE IS ACHIEVED. POSSIBLE TO CHANGE FORMULA TO JEVITY 1.5 POSSIBLE TO D/C PT ON JEVITY 1.2 FOR HOME REVIEW JEROD PREVIOUS NOTE RD WILL CONTINUE TO MONITOR AND FOLLOW UP, THANK YOU. Addendum: 10/14/19 at [address] Amended: Links added.
[2019-10-14 17:07] VITALS: BP 127/52
--- NOTE | 2019-10-14 19:40 | NUR ---
PM Assessment Received pt with mother at the bedside, with nasal J tube route feeding with Pivot 1.5 shayne at 20cc/hr, LR at 100cc/hr both infusing well. DCP discuss with pt which pt & mother verbalizes their concern of now really knowing what's the plan at this time as no physician / nurse had told them what to expect at this point. I made them aware due to continued elevated Lipase level, pt need to continued to be NPO for now, re-explained about the Nasal J tube as where it need to be anchored as pt stomach really need to rest to avoid releasing any stomach enzymes. I made them aware the possibility of a PPN but we don't have any order for it at this time. Pt made aware that he is on free water flushes 220 cc Q 4 hours, feeding need to be increase 5cc Q 5 hours to goal rate at 35cc/hr. Pt requested for tonight not to increase his feeding as he still feels some RUQ discomfort on & off, agreed with the water flushes.
[2019-10-14 19:50] VITALS: BP 114/58
--- NOTE | 2019-10-14 20:20 | NUR ---
Re: plan of PEJ I was approach by Shilpi DA SILVA, CM at the bedside, inform the pt about a plan for a PEJ, the request for an MD to sign the paper she left at the chart for the [employer] Nutrition Patient Assistance Program Application. Pt & mother was surprise about the plan PEJ. I told them that I will pass on the morning to verify this plan form the physicians as I don't have any order not I didn't get report about this issue.
[2019-10-14] MEDS: FAMOTIDINE/PF 20 MG/2 ML VIAL IV SCH (20:44)
[2019-10-14] MEDS: HYDROMORPHONE HCL 2 MG/ML VIAL IVP PRN (20:59)
[2019-10-15] VITALS (7 sets, daily range): BP systolic 106–135; BP diastolic 52–78
[2019-10-15] MEDS: MEROPENEM 1 GM VIAL IVP SCH ×3 (03:07→20:37)
[2019-10-15 05:14] LABS: BASOPHILS % (AUTO) 0.5 % (0.0-5.0); EOSINOPHILS % (AUTO) 3.7 % (0.0-8.0); HEMATOCRIT 36.3 % (42-54); LYMPHOCYTES % (AUTO) 28.7 % (21.0-51.0); MEAN CORPUSCULAR HEMOGLOBIN 31.8 pg (27.0-33.0); MEAN CORPUSCULAR VOLUME 99.5 fL (79-99); NEUTROPHILS % (AUTO) 52.9 % (40.0-77.0); PLATELET COUNT (AUTO) 402 K/uL (130-400); RED BLOOD CELL COUNT(AUTO) 3.65 MIL/uL (4.50-6.20); RED CELL DISTRIBUTION WIDTH 11.7 % (11.0-15.5); WHITE BLOOD COUNT (AUTO) 7.7 K/uL (4.8-10.8)
[2019-10-15 05:32] LABS: CREATININE 1.1 mg/dL (0.5-1.5); POTASSIUM 3.8 mmol/L (3.5-5.1)
[2019-10-15] MEDS: LACTATED RINGERS 1000ML 1,000 ML IV SCH ×2 (06:20→16:15)
[2019-10-15] MEDS: ONDANSETRON HCL 4 MG/2 ML VIAL IVP PRN ×2 (09:46→16:57)
[2019-10-15] MEDS: HYDROMORPHONE HCL 0.5 MG/0.5 ML ML IVP PRN ×3 (09:47→23:47)
[2019-10-15] MEDS: PANTOPRAZOLE 40 MG/VIAL IVP SCH (09:47)
[2019-10-15] MEDS ORDERED: KETOROLAC TROMETHAMINE 15MG/ML IV SCH (13:45)
[2019-10-15 16:10] LABS: INR 1.1 (0.85-1.15); PROTHROMBIN TIME 11.5 SEC (9.6-11.6)
--- NOTE | 2019-10-15 19:45 | NUR ---
PM Assessment Received pt with mother at the bedside, LR at 100cc/hr, Feeding via Nasal J tube, Pivot 1.5cal at 20cc/hr infusing well. Pt made aware at this time I will proceed with trying to increased his feeding to goal rate of 35cc/hr, by 2200 I will increase his feeding to 25cc/hr, agreed. Pt also requested to have his free water flushes to 110cc as claimed feels full when being flushed, we agreed. We also re-discuss re: PICC line, per pt he wants to think about it & will lt us know tomorrow.
[2019-10-15] MEDS: FAMOTIDINE/PF 20 MG/2 ML VIAL IV SCH (20:36)
[2019-10-16] MEDS: LACTATED RINGERS 1000ML 1,000 ML IV SCH ×3 (00:03→21:06)
[2019-10-16 03:15] VITALS: BP 114/65
[2019-10-16] MEDS: MEROPENEM 1 GM VIAL IVP SCH ×3 (03:15→20:56)
[2019-10-16] MEDS: LORAZEPAM 2 MG/ML 1 ML VIAL IVP PRN (03:20)
[2019-10-16 07:30] VITALS: BP 125/73
[2019-10-16 08:36] LABS: HEMATOCRIT 35.9 % (42-54); MEAN CORPUSCULAR HEMOGLOBIN 32.5 pg (27.0-33.0); MEAN CORPUSCULAR HGB CONC 33.1 g/dL (32.0-36.0); MEAN CORPUSCULAR VOLUME 98.1 fL (79-99); PLATELET COUNT (AUTO) 458 K/uL (130-400); RED BLOOD CELL COUNT(AUTO) 3.66 MIL/uL (4.50-6.20); RED CELL DISTRIBUTION WIDTH 11.6 % (11.0-15.5); WHITE BLOOD COUNT (AUTO) 7.4 K/uL (4.8-10.8)
[2019-10-16 08:58] LABS: CREATININE 0.9 mg/dL (0.5-1.5)
[2019-10-16] MEDS: PANTOPRAZOLE 40 MG/VIAL IVP SCH (09:46)
[2019-10-16] MEDS: ONDANSETRON HCL 4 MG/2 ML VIAL IVP PRN ×3 (09:46→23:25)
[2019-10-16] MEDS: HYDROMORPHONE HCL 0.5 MG/0.5 ML ML IVP PRN ×3 (09:47→23:30)
[2019-10-16 11:00] VITALS: BP 138/88
--- NOTE | 2019-10-16 13:14 | NUR ---
TUBE FEEDING RECOMMENDATIONS PT CONTINUES WITH LOOSE STOOLS AND COMPLAINTS OF FEELING FULL WITH FLUSHES. 0ML RESIDUALS NOTED. LABS REVIEWED (LIPASE [id number]). MEDS REVIEWED. SKIN IS INTACT. RD RECOMMENDS TO CHANGE FORMULA TO JEVITY 1.5 START FULL STRENGTH AT 30ML/HR INCREASE RATE BY 5ML EVERY 5HRS TOLERATED GOAL RATE IS 55ML/HR CHANGE FLUSHES TO 120MLS EVERY 2 HRS, RN NOTIFIED MONITOR TOLERANCE, RESIDUALS, LABS, BM RD WILL CONTINUE TO MONITOR AND FOLLOW UP Addendum: 10/16/19 at [address] Amended: Links added.
[2019-10-16 16:00] VITALS: BP 123/70
[2019-10-16 19:00] VITALS: BP 132/87
[2019-10-16] MEDS: FAMOTIDINE/PF 20 MG/2 ML VIAL IV SCH (20:56)
[2019-10-17] VITALS (7 sets, daily range): BP systolic 120–128; BP diastolic 65–80
--- NOTE | 2019-10-17 01:52 | NUR ---
PATIENT CONTINUES TO C/O FEELING OF FULLNESS WHEN TUBE FEEDING INCREASED OR WHEN WATER FLUSHES ARE ADMINISTERED. AT THIS TIME, TUBE FEEDING REMAINS AT 25ML/HR AND 100ML OF H20 HAVE BEEN ADMINISTERED. PT STATES HE FEELS "OKAY" AT THIS TIME. WILL NOTIFY DIETITIAN IN A.M.
[2019-10-17] MEDS: MEROPENEM 1 GM VIAL IVP SCH ×3 (04:51→21:00)
[2019-10-17] MEDS: LACTATED RINGERS 1000ML 1,000 ML IV SCH ×2 (05:24→18:25)
[2019-10-17 06:10] LABS: HEMATOCRIT 33.6 % (42-54); MEAN CORPUSCULAR HEMOGLOBIN 31.7 pg (27.0-33.0); MEAN CORPUSCULAR HGB CONC 32.4 g/dL (32.0-36.0); MEAN CORPUSCULAR VOLUME 97.7 fL (79-99); PLATELET COUNT (AUTO) 419 K/uL (130-400); RED BLOOD CELL COUNT(AUTO) 3.44 MIL/uL (4.50-6.20); RED CELL DISTRIBUTION WIDTH 11.5 % (11.0-15.5); WHITE BLOOD COUNT (AUTO) 6.3 K/uL (4.8-10.8)
[2019-10-17 06:22] LABS: BAND NEUTROPHILS % (MANUAL) 3 % (0-2); EOSINOPHILS % (MANUAL) 3 % (1-6); LYMPHOCYTES % (MANUAL) 18 % (22-44); MAN.DIFF COMMENT-IMPRESSION MANUAL DIFFERENTIAL; MONOCYTES % (MANUAL) 6 % (2-9); PLATELET MORPHOLOGY COMMENT ADEQUATE; SEGMENTED NEUTROPHILS % 70 % (40-70)
[2019-10-17 06:30] LABS: ALBUMIN 2.5 g/dL (3.5-5.0); BILIRUBIN,TOTAL 0.3 mg/dL (0.2-1.0); CREATININE 1.1 mg/dL (0.5-1.5)
[2019-10-17] MEDS: PANTOPRAZOLE 40 MG/VIAL IVP SCH (08:45)
--- NOTE | 2019-10-17 08:50 | NUR ---
TALKED TO PATIENT REGARDING PICC LINE. PICC LINE BENEFITS AND RISKS EXPLAINED. PT VERBALIZED UNDERSTANDING OF EDUCATION BUT HE STATES THAT HE WANTS TO TALK TO HIS MOTHER ABOUT THE PICC LINE.
--- NOTE | 2019-10-17 11:10 | NUR ---
STARTED JEVITY 1.5 CONTINUOUS RATE AT 20 CC/HR. J-TUBE FLUSHED WITH 120 CC H2O PER DIETITIAN RECOMMENDATIONS. WILL CONTINUE TO MONITOR CLOSELY.
[2019-10-17] MEDS: ONDANSETRON HCL 4 MG/2 ML VIAL IVP PRN ×2 (11:19→17:53)
[2019-10-17] MEDS: HYDROMORPHONE HCL 0.5 MG/0.5 ML ML IVP PRN ×2 (11:20→17:53)
[2019-10-17] MEDS: FAMOTIDINE/PF 20 MG/2 ML VIAL IV SCH (21:01)
[2019-10-18] MEDS: ONDANSETRON HCL 4 MG/2 ML VIAL IVP PRN ×4 (00:18→23:21)
[2019-10-18] MEDS: HYDROMORPHONE HCL 0.5 MG/0.5 ML ML IVP PRN ×4 (00:18→23:22)
--- NOTE | 2019-10-18 01:07 | NUR ---
PATIENT REFUSED H20 FLUSH AT THIS TIME, STATES HE FEELS FULL.
[2019-10-18 03:00] VITALS: BP 113/73
--- NOTE | 2019-10-18 03:00 | NUR ---
PATIENT REFUSED THE H2O 120 ML FLUSH AT THIS TIME. STATES HE STILL FEELS A BIT FULL. CONT WITH JEVITY 1.5 AT 20 ML/HR.
[2019-10-18] MEDS: MEROPENEM 1 GM VIAL IVP SCH ×2 (04:10→11:34)
[2019-10-18] MEDS: LACTATED RINGERS 1000ML 1,000 ML IV SCH ×2 (04:11→14:15)
[2019-10-18 05:23] LABS: EOSINOPHILS % (AUTO) 3.4 % (0.0-8.0); HEMATOCRIT 34.8 % (42-54); LYMPHOCYTES % (AUTO) 31.8 % (21.0-51.0); MEAN CORPUSCULAR HEMOGLOBIN 32.1 pg (27.0-33.0); MEAN CORPUSCULAR HGB CONC 32.8 g/dL (32.0-36.0); MONOCYTES % (AUTO) 14.4 % (3.0-13.0); PLATELET COUNT (AUTO) 398 K/uL (130-400); RED BLOOD CELL COUNT(AUTO) 3.55 MIL/uL (4.50-6.20); RED CELL DISTRIBUTION WIDTH 11.4 % (11.0-15.5)
[2019-10-18 05:47] LABS: ALBUMIN 2.6 g/dL (3.5-5.0); BILIRUBIN,TOTAL 0.3 mg/dL (0.2-1.0); CREATININE 1.1 mg/dL (0.5-1.5); POTASSIUM 3.8 mmol/L (3.5-5.1)
[2019-10-18 08:00] VITALS: BP 117/70
[2019-10-18] MEDS: PANTOPRAZOLE 40 MG/VIAL IVP SCH (09:15)
--- NOTE | 2019-10-18 10:44 | NUR ---
PAGED DR DUTTA
--- NOTE | 2019-10-18 11:16 | NUR ---
DR DUTTA CALLED BACK. REPORTED LIPASE LEVELS. DR DUTTA STATED "HIS LIPASE MAY TAKE WEEKS OR MONTHS TO GET BETTER. THIS IS THE WORST CASE OF PANCREATITIS THAT I HAVE EVER SEEN" CONTINUE TO MONITOR WBC COUNT, CONTINUE ANTIBIOTIC TX AND TUBE FEEDINGS. NO FURTHER ORDERS.
[2019-10-18 11:17] VITALS: BP 133/93
--- NOTE | 2019-10-18 15:24 | NUR ---
RD Follow Up Pt tolerating Current tube feedings of Jevity 1.5 @25mls/hr. RN to continue to advance to goal, as tolerated. Pt diarrhea resolved, as per RN. RD to continue to monitor. Addendum: 10/18/19 at [address] Amended: Links added.
[2019-10-18 16:40] VITALS: BP 136/91
[2019-10-18 19:40] VITALS: BP 126/66
[2019-10-18] MEDS: FAMOTIDINE/PF 20 MG/2 ML VIAL IV SCH (20:27)
[2019-10-18 23:00] VITALS: BP 134/76
[2019-10-18] MEDS: ACETAMINOPHEN 650 MG SUPPOSITORY RC PRN (23:50)
--- NOTE | 2019-10-18 23:54 | NUR ---
TEMP 101.0 TEMP, PRN TYLENOL SUPPOSITORY ADMINISTERED. PAGED ARABELLA JONES VIA ANSWERING SERVICE TO REPORT. WILL AWAIT CALL BACK.
--- NOTE | 2019-10-19 00:01 | NUR ---
RECEIVED CALL BACK FROM ARABELLA JONES, NEW ORDERS FOR BLOOD CULTURES, URINE CULTURE, PROCALCITONIN LEVEL AND CBC IN AM . WILL CONT TO MONITOR CLOSELY.
[2019-10-19] MEDS: MEROPENEM 1 GM VIAL IVP SCH ×3 (00:31→15:58)
[2019-10-19] MEDS: LACTATED RINGERS 1000ML 1,000 ML IV SCH ×3 (00:33→20:59)
[2019-10-19 03:00] VITALS: BP 143/79
[2019-10-19] MEDS: ACETAMINOPHEN 650 MG SUPPOSITORY RC PRN ×4 (04:05→20:59)
--- NOTE | 2019-10-19 05:19 | NUR ---
TEMP 102.5 PATIENT HAS BEEN GIVEN TYLENOL 650 MG PER RC. PATIENT ASSISTED TO SHOWER. WILL CONT TO MONITOR. BLOOD CULTURES/URINE CULTURES HAVE BEEN COLLECTED.
[2019-10-19] MEDS: ONDANSETRON HCL 4 MG/2 ML VIAL IVP PRN ×2 (05:57→13:07)
--- NOTE | 2019-10-19 06:00 | NUR ---
TEMP RECHECK AT 99.8 AFTER SHOWER
[2019-10-19 06:20] LABS: BASOPHILS % (AUTO) 0.3 % (0.0-5.0); EOSINOPHILS % (AUTO) 0.1 % (0.0-8.0); HEMATOCRIT 41.4 % (42-54); LYMPHOCYTES % (AUTO) 8.2 % (21.0-51.0); MEAN CORPUSCULAR HEMOGLOBIN 32.4 pg (27.0-33.0); MEAN CORPUSCULAR HGB CONC 33.3 g/dL (32.0-36.0); MEAN CORPUSCULAR VOLUME 97.2 fL (79-99); MONOCYTES % (AUTO) 6.8 % (3.0-13.0); NEUTROPHILS % (AUTO) 84.1 % (40.0-77.0); PLATELET COUNT (AUTO) 399 K/uL (130-400); RED BLOOD CELL COUNT(AUTO) 4.26 MIL/uL (4.50-6.20); RED CELL DISTRIBUTION WIDTH 11.6 % (11.0-15.5); WHITE BLOOD COUNT (AUTO) 13.7 K/uL (4.8-10.8)
[2019-10-19 06:37] LABS: BILIRUBIN,TOTAL 0.6 mg/dL (0.2-1.0); CREATININE 1.3 mg/dL (0.5-1.5); POTASSIUM 4.2 mmol/L (3.5-5.1); TOTAL PROTEIN, SERUM 7.3 g/dL (6.0-8.3)
[2019-10-19] MEDS: HYDROMORPHONE HCL 0.5 MG/0.5 ML ML IVP PRN (06:38)
[2019-10-19 08:00] VITALS: BP 117/78
[2019-10-19] MEDS: PANTOPRAZOLE 40 MG/VIAL IVP SCH (09:14)
[2019-10-19 11:49] VITALS: BP 126/74
--- NOTE | 2019-10-19 13:35 | NUR ---
DR FALLON CALLED AND TOLD ABOUT CONSULT
[2019-10-19] MEDS ORDERED: VANCOMYCIN PROTOCOL PER PHARMACY IV SCH (14:30)
[2019-10-19] MEDS: VANCOMYCIN 1GM+NS 250ML 250 ML IV SCH ×2 (15:58→20:58)
[2019-10-19 16:00] VITALS: BP 137/81
[2019-10-19] MEDS: LORAZEPAM 2 MG/ML 1 ML VIAL IVP PRN (16:04)
[2019-10-19 19:40] VITALS: BP 131/82
[2019-10-19 23:45] VITALS: BP 125/81
[2019-10-20] MEDS: MEROPENEM 1 GM VIAL IVP SCH ×3 (00:48→16:43)
--- NOTE | 2019-10-20 02:05 | NUR ---
Informed Emmanuel Mcneill BLENDING COORDINATOR regarding Blood culture results of gram negative rods. No new orders were given.
[2019-10-20 03:45] VITALS: BP 123/83
[2019-10-20] MEDS: LORAZEPAM 2 MG/ML 1 ML VIAL IVP PRN (04:05)
[2019-10-20] MEDS: LACTATED RINGERS 1000ML 1,000 ML IV SCH ×2 (06:08→16:15)
[2019-10-20 06:50] LABS: BASOPHILS % (AUTO) 0.1 % (0.0-5.0); EOSINOPHILS % (AUTO) 0.1 % (0.0-8.0); HEMATOCRIT 35.9 % (42-54); LYMPHOCYTES % (AUTO) 12.7 % (21.0-51.0); MEAN CORPUSCULAR HEMOGLOBIN 31.8 pg (27.0-33.0); MEAN CORPUSCULAR HGB CONC 32.9 g/dL (32.0-36.0); MEAN CORPUSCULAR VOLUME 96.8 fL (79-99); MONOCYTES % (AUTO) 9.5 % (3.0-13.0); NEUTROPHILS % (AUTO) 77.1 % (40.0-77.0); PLATELET COUNT (AUTO) 269 K/uL (130-400); RED BLOOD CELL COUNT(AUTO) 3.71 MIL/uL (4.50-6.20); RED CELL DISTRIBUTION WIDTH 11.9 % (11.0-15.5); WHITE BLOOD COUNT (AUTO) 15.5 K/uL (4.8-10.8)
[2019-10-20 07:22] LABS: ALBUMIN 2.3 g/dL (3.5-5.0); BILIRUBIN,TOTAL 0.7 mg/dL (0.2-1.0); CREATININE 1.1 mg/dL (0.5-1.5); TOTAL PROTEIN, SERUM 5.9 g/dL (6.0-8.3)
[2019-10-20 08:00] VITALS: BP 118/72
[2019-10-20] MEDS ORDERED: ACETAMINOPHEN ELIXIR 160 MG/5ML UDCUP PO PRN (08:00)
[2019-10-20] MEDS ORDERED: HYDROMORPHONE 1 MG/1 ML AMP IVP PRN (08:15)
[2019-10-20] MEDS ORDERED: ACETAMINOPHEN ELIXIR 650 MG/20.3 ML UDCUP ONE ×2 (09:05→13:26)
[2019-10-20] MEDS: PANTOPRAZOLE 40 MG/VIAL IVP SCH (09:09)
[2019-10-20] MEDS: VANCOMYCIN 1GM+NS 250ML 250 ML IV SCH ×2 (09:10→21:14)
[2019-10-20 12:00] VITALS: BP 115/72
[2019-10-20] MEDS: ACETAMINOPHEN ELIXIR 650 MG/20.3 ML UDCUP PO PRN (13:49)
[2019-10-20] MEDS: FLUCONAZOLE 400 MG/NS 200 ML 200 ML IV SCH (14:21)
[2019-10-20 16:00] VITALS: BP 117/67
[2019-10-20 19:40] VITALS: BP 127/74
[2019-10-21] VITALS (7 sets, daily range): BP systolic 108–135; BP diastolic 57–78
[2019-10-21] MEDS: LACTATED RINGERS 1000ML 1,000 ML IV SCH ×3 (00:49→20:36)
[2019-10-21] MEDS: MEROPENEM 1 GM VIAL IVP SCH ×4 (01:06→23:27)
[2019-10-21] MEDS: LORAZEPAM 2 MG/ML 1 ML VIAL IVP PRN (02:13)
[2019-10-21 05:18] LABS: BASOPHILS % (AUTO) 0.3 % (0.0-5.0); EOSINOPHILS % (AUTO) 0.3 % (0.0-8.0); HEMATOCRIT 34.3 % (42-54); LYMPHOCYTES % (AUTO) 17.6 % (21.0-51.0); MEAN CORPUSCULAR HEMOGLOBIN 31.5 pg (27.0-33.0); MEAN CORPUSCULAR HGB CONC 32.4 g/dL (32.0-36.0); MEAN CORPUSCULAR VOLUME 97.4 fL (79-99); MONOCYTES % (AUTO) 15.1 % (3.0-13.0); NEUTROPHILS % (AUTO) 66.4 % (40.0-77.0); PLATELET COUNT (AUTO) 236 K/uL (130-400); RED BLOOD CELL COUNT(AUTO) 3.52 MIL/uL (4.50-6.20); WHITE BLOOD COUNT (AUTO) 12.8 K/uL (4.8-10.8)
[2019-10-21 05:24] LABS: ALBUMIN 2.4 g/dL (3.5-5.0); BILIRUBIN,TOTAL 0.9 mg/dL (0.2-1.0); CREATININE 1.1 mg/dL (0.5-1.5); POTASSIUM 4.3 mmol/L (3.5-5.1); TOTAL PROTEIN, SERUM 6.1 g/dL (6.0-8.3)
[2019-10-21] MEDS: VANCOMYCIN 1GM+NS 250ML 250 ML IV SCH ×2 (09:22→20:36)
[2019-10-21] MEDS: PANTOPRAZOLE 40 MG/VIAL IVP SCH (09:24)
[2019-10-21] MEDS: FLUCONAZOLE 400 MG/NS 200 ML 200 ML IV SCH (12:38)
--- NOTE | 2019-10-21 13:01 | NUR ---
CM Note: Housesuper aware of dcp transfer higher level of care CM spoke to Kaitlin agudelohouseperson. Aware of new order for possible transfer to higher level of care. 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 Dk super pending to set up. Primary nurse aware. CM to cont to follow up.
--- NOTE | 2019-10-21 15:04 | NUR ---
RD FOLLOW UP Pt diet advanced to Clear Liquid Diet. RD to continue monitor. Pt with improving nutritional labs, although still elevated. Improving status. RD to monitor dietary tolerance and PO status. Please notify as additional nutrition concerns arise. Thank you. Addendum: 10/21/19 at [address] Amended: Links added.
[2019-10-22] MEDS: LORAZEPAM 2 MG/ML 1 ML VIAL IVP PRN (01:04)
[2019-10-22 04:00] VITALS: BP 117/71
[2019-10-22 05:50] LABS: BASOPHILS % (AUTO) 0.3 % (0.0-5.0); EOSINOPHILS % (AUTO) 1.3 % (0.0-8.0); HEMATOCRIT 31.8 % (42-54); LYMPHOCYTES % (AUTO) 18.7 % (21.0-51.0); MEAN CORPUSCULAR HEMOGLOBIN 31.8 pg (27.0-33.0); MEAN CORPUSCULAR HGB CONC 32.4 g/dL (32.0-36.0); MEAN CORPUSCULAR VOLUME 98.1 fL (79-99); MONOCYTES % (AUTO) 12.9 % (3.0-13.0); NEUTROPHILS % (AUTO) 66.4 % (40.0-77.0); PLATELET COUNT (AUTO) 234 K/uL (130-400); RED BLOOD CELL COUNT(AUTO) 3.24 MIL/uL (4.50-6.20); WHITE BLOOD COUNT (AUTO) 7.9 K/uL (4.8-10.8)
[2019-10-22 05:57] LABS: ALBUMIN 2.3 g/dL (3.5-5.0); BILIRUBIN,TOTAL 1.1 mg/dL (0.2-1.0); POTASSIUM 4.1 mmol/L (3.5-5.1)
[2019-10-22 08:00] VITALS: BP 129/73
[2019-10-22] MEDS: LACTATED RINGERS 1000ML 1,000 ML IV SCH ×2 (08:15→17:09)
[2019-10-22] MEDS: VANCOMYCIN 1GM+NS 250ML 250 ML IV SCH ×2 (08:37→21:16)
[2019-10-22] MEDS: PANTOPRAZOLE 40 MG/VIAL IVP SCH (08:37)
[2019-10-22] MEDS: MEROPENEM 1 GM VIAL IVP SCH ×2 (08:37→17:05)
[2019-10-22] MEDS: LIDOCAINE HCL-MPF 1% 2ML VIAL IV PRN (08:41)
--- NOTE | 2019-10-22 09:00 | NUR ---
DOBHOFF Order to discontinue feeding tube right nare (dobhoff) given by surgeon Dr. Silva. Procedure explained to patient, verbalizes understanding. Tolerated removal well as he denies any pain or shortness of breath. Patient has been tolerating clear liquids and now full liquid diets. will continue to monitor
[2019-10-22 11:38] VITALS: BP 128/70
[2019-10-22] MEDS: FLUCONAZOLE 400 MG/NS 200 ML 200 ML IV SCH (14:12)
[2019-10-22 16:00] VITALS: BP 128/72
[2019-10-22 19:56] VITALS: BP 126/68
[2019-10-22] MEDS: HYDROMORPHONE HCL 0.5 MG/0.5 ML ML IVP PRN (21:28)
[2019-10-23] VITALS (7 sets, daily range): BP systolic 104–135; BP diastolic 65–75
[2019-10-23] MEDS: MEROPENEM 1 GM VIAL IVP SCH ×2 (00:57→08:18)
[2019-10-23] MEDS: LACTATED RINGERS 1000ML 1,000 ML IV SCH ×3 (04:15→23:38)
[2019-10-23 05:30] LABS: BASOPHILS % (AUTO) 0.4 % (0.0-5.0); EOSINOPHILS % (AUTO) 1.9 % (0.0-8.0); LYMPHOCYTES % (AUTO) 22.7 % (21.0-51.0); MEAN CORPUSCULAR HEMOGLOBIN 31.8 pg (27.0-33.0); MEAN CORPUSCULAR HGB CONC 32.7 g/dL (32.0-36.0); MEAN CORPUSCULAR VOLUME 97.4 fL (79-99); MONOCYTES % (AUTO) 12.8 % (3.0-13.0); NEUTROPHILS % (AUTO) 61.4 % (40.0-77.0); PLATELET COUNT (AUTO) 244 K/uL (130-400); RED BLOOD CELL COUNT(AUTO) 3.08 MIL/uL (4.50-6.20); WHITE BLOOD COUNT (AUTO) 7.4 K/uL (4.8-10.8)
[2019-10-23 06:02] LABS: ALBUMIN 2.2 g/dL (3.5-5.0); CREATININE 0.9 mg/dL (0.5-1.5); POTASSIUM 3.9 mmol/L (3.5-5.1); TOTAL PROTEIN, SERUM 5.8 g/dL (6.0-8.3)
--- NOTE | 2019-10-23 08:00 | NUR ---
PT AWAKE, REVIEW PLAN OF CARE, ON A FULL DIET, DENIES ANY GASTRIC PAIN , CALL LIGHT IN REACH,
[2019-10-23] MEDS: PANTOPRAZOLE 40 MG/VIAL IVP SCH (09:00)
[2019-10-23] MEDS: VANCOMYCIN 1GM+NS 250ML 250 ML IV SCH (09:45)
[2019-10-23] MEDS: FLUCONAZOLE 400 MG/NS 200 ML 200 ML IV SCH (12:28)
[2019-10-23] MEDS: LEVOFLOXACIN 750 MG/D5W 150 ML 150 ML IV SCH (14:59)
[2019-10-23] MEDS: ACETAMINOPHEN ELIXIR 650 MG/20.3 ML UDCUP PO PRN (16:10)
--- NOTE | 2019-10-23 16:10 | NUR ---
TEMP OF 101.5 , CALL HOSPITALIST, ANAMIKA RETURN CALLED , UPDATE OF PT TEMP 101.5 TO DO BLOOD CULTURES ,X 2 GAVE ALSO TYLENOL ELIXER 500 MG PO FOR TEMP CALL LIGHT IN REACH,,
[2019-10-23] MEDS: SIMETHICONE 80 MG TAB.CHEW PO PRN (23:38)
[2019-10-23] MEDS: LORAZEPAM 2 MG/ML 1 ML VIAL IVP PRN (23:56)
[2019-10-24 03:57] VITALS: BP 109/63
[2019-10-24 06:01] LABS: BASOPHILS % (AUTO) 0.2 % (0.0-5.0); EOSINOPHILS % (AUTO) 0.7 % (0.0-8.0); HEMATOCRIT 32.9 % (42-54); LYMPHOCYTES % (AUTO) 18.2 % (21.0-51.0); MEAN CORPUSCULAR HEMOGLOBIN 31.2 pg (27.0-33.0); MEAN CORPUSCULAR HGB CONC 32.2 g/dL (32.0-36.0); MEAN CORPUSCULAR VOLUME 96.8 fL (79-99); MONOCYTES % (AUTO) 12.4 % (3.0-13.0); NEUTROPHILS % (AUTO) 67.9 % (40.0-77.0); PLATELET COUNT (AUTO) 313 K/uL (130-400); RED CELL DISTRIBUTION WIDTH 11.9 % (11.0-15.5); WHITE BLOOD COUNT (AUTO) 8.9 K/uL (4.8-10.8)
[2019-10-24 06:29] LABS: POTASSIUM 3.9 mmol/L (3.5-5.1)
[2019-10-24 08:00] VITALS: BP 125/68
[2019-10-24] MEDS: LACTATED RINGERS 1000ML 1,000 ML IV SCH (08:51)
[2019-10-24] MEDS: LEVOFLOXACIN 750 MG/D5W 150 ML 150 ML IV SCH (10:10)
[2019-10-24] MEDS: PANTOPRAZOLE 40 MG/VIAL IVP SCH (10:10)
[2019-10-24 12:00] VITALS: BP 127/72
[2019-10-24] MEDS: FLUCONAZOLE 400 MG/NS 200 ML 200 ML IV SCH (13:30)
[2019-10-24 16:00] VITALS: BP 120/61
[2019-10-24 20:00] VITALS: BP 116/66
[2019-10-24] MEDS: HYDROMORPHONE HCL 0.5 MG/0.5 ML ML IVP PRN (20:25)
[2019-10-25] VITALS (7 sets, daily range): BP systolic 115–139; BP diastolic 64–77
[2019-10-25] MEDS: TEMAZEPAM 7.5 MG CAPSULE PO PRN (01:28)
[2019-10-25] MEDS: FAMOTIDINE/PF 20 MG/2 ML VIAL IV SCH ×2 (09:16→21:24)
[2019-10-25] MEDS: LEVOFLOXACIN 750 MG/D5W 150 ML 150 ML IV SCH (09:21)
[2019-10-25] MEDS: LACTATED RINGERS 1000ML 1,000 ML IV SCH ×2 (09:21→16:15)
[2019-10-25] MEDS: FLUCONAZOLE 400 MG/NS 200 ML 200 ML IV SCH (13:56)
--- NOTE | 2019-10-25 14:45 | NUR ---
RD FOLLOW UP PT STATES HE IS TOLERATING CLEAR LIQUIDS. NO COMPLAINTS OF ABDOMINAL PAIN AFTER MEALS. NO COMPLAINTS OF N/V AT THIS TIME. LOOSE STOOLS CONTINUE, PER PT. RD RECOMMENDS TO ADVANCE DIET TOLERATED WHEN MEDICALLY FEASIBLE ADD ENSURE CLEAR WITH MEALS MONITOR TOLERANCE TO PO RD WILL CONTINUE TO MONITOR AND FOLLOW UP, THANK YOU. Addendum: 10/25/19 at [address] Amended: Links added.
[2019-10-25] MEDS: HYDROMORPHONE HCL 0.5 MG/0.5 ML ML IVP PRN ×2 (16:13→22:52)
[2019-10-25] MEDS: SIMETHICONE 80 MG TAB.CHEW PO PRN (21:38)
[2019-10-26] MEDS: LORAZEPAM 2 MG/ML 1 ML VIAL IVP PRN (00:39)
[2019-10-26 03:00] VITALS: BP 111/66
[2019-10-26 08:09] VITALS: BP 125/71
--- NOTE | 2019-10-26 08:23 | NUR ---
Called Dialysis nurse Terri regarding elevated BP of 186/79. Patient sleeping, according to carl Mary CNA, patient moving and uncooperative during measure of blood pressure, stating he just wanted to be left alone. Asymptomatic. Per dialysis nurse Terri, hold off on blood pressure medications. Bed low, locked, call fuentes within reach.
[2019-10-26] MEDS: LEVOFLOXACIN 750 MG/D5W 150 ML 150 ML IV SCH (09:54)
[2019-10-26] MEDS: FAMOTIDINE/PF 20 MG/2 ML VIAL IV SCH ×2 (09:54→20:20)
[2019-10-26] MEDS: LACTATED RINGERS 1000ML 1,000 ML IV SCH ×3 (09:54→22:25)
[2019-10-26 11:11] VITALS: BP 120/71
[2019-10-26] MEDS ORDERED: IOHEXOL-350 75 ML VIAL IV ONE (14:06)
[2019-10-26] MEDS: FLUCONAZOLE 400 MG/NS 200 ML 200 ML IV SCH (16:12)
[2019-10-26] MEDS: HYDROMORPHONE HCL 0.5 MG/0.5 ML ML IVP PRN (16:13)
[2019-10-26 16:29] VITALS: BP 127/75
[2019-10-26 19:00] VITALS: BP 124/74
[2019-10-26] MEDS ORDERED: MORPHINE SULFATE 2 MG/ML 1ML SYG IV ONE (22:40)
[2019-10-26 23:00] VITALS: BP 117/65
[2019-10-27] MEDS ORDERED: MORPHINE SULFATE 2 MG/ML 1ML SYG ONE (00:37)
[2019-10-27 03:00] VITALS: BP 113/59
[2019-10-27 04:00] VITALS: BP 118/85
[2019-10-27] MEDS: LACTATED RINGERS 1000ML 1,000 ML IV SCH (06:53)
[2019-10-27 08:08] VITALS: BP 126/79
[2019-10-27] MEDS: FAMOTIDINE/PF 20 MG/2 ML VIAL IV SCH (09:12)
[2019-10-27] MEDS: LEVOFLOXACIN 750 MG/D5W 150 ML 150 ML IV SCH (09:13)
[2019-10-27] MEDS: HYDROMORPHONE HCL 0.5 MG/0.5 ML ML IVP PRN (09:13)
[2019-10-27] MEDS: RANITIDINE HCL 15 MG/1 ML PO SCH ×2 (14:29→20:21)
[2019-10-27] MEDS: FLUCONAZOLE 400 MG/NS 200 ML 200 ML IV SCH (15:09)
[2019-10-27 16:36] VITALS: BP 118/76
--- NOTE | 2019-10-27 16:49 | NUR ---
CONTACTED GENET FROM [facility] RE: NEW CT SCAN DR. FALLON WANTED NEW C SCAN DONE. RESULT REVIEWED, REQUEST TO ASK GENERAL SURGERY COME BACK TO SEE. CONTACT GENET, LEFT MESSAGE- ASKED PLEASE HAVE DR. ZIMMERMAN OR [facility] RE-REVIEW THE NEW CT SCAN FOR POSSIBLE OPTIONS- POSSIBLE DRAIN, POSSIBLE SURGERY? Addendum: 10/27/19 at 1652 by ANNE RAMIREZ RN CM Amended: Links added.
[2019-10-27] MEDS: APAP/CODEINE 120/12MG 5ML PO PRN ×2 (17:43→19:00)
[2019-10-27 20:00] VITALS: BP 124/72
[2019-10-27] MEDS: SIMETHICONE 80 MG TAB.CHEW PO PRN (20:31)
[2019-10-27] MEDS ORDERED: FAMOTIDINE 20MG TAB 20 MG TAB PO SCH (21:00)
[2019-10-27] MEDS ORDERED: HYDROMORPHONE HCL 2 MG/ML VIAL IVP ONE (21:20)
--- NOTE | 2019-10-27 21:38 | NUR ---
[facility] BRADEN INFORMED THAT HE WAS CONSULTED FOR THE PATIENT. [facility] INFORMED ME THAT HE KNEW THE PATIENT AND WAS NOT GOING TO DO ANY SURGICAL INTERVENTION AT THIS TIME.
[2019-10-27] MEDS ORDERED: HYDROMORPHONE HCL 0.5 MG/0.5 ML ML ONE (22:53)
[2019-10-27] MEDS ORDERED: HYDROCODONE/ACETAMINOPHEN 5/325 MG TAB ONE (23:28)
[2019-10-28] VITALS (7 sets, daily range): BP systolic 117–139; BP diastolic 73–84
[2019-10-28] MEDS: LACTATED RINGERS 1000ML 1,000 ML IV SCH ×4 (03:28→17:13)
[2019-10-28] MEDS: LORAZEPAM 2 MG/ML 1 ML VIAL IVP PRN (03:41)
[2019-10-28] MEDS: HYDROCODONE/ACETAMINOPHEN 5/325 MG TAB PO PRN ×4 (03:42→19:54)
[2019-10-28] MEDS: PAROXETINE HCL 20 MG TABLET PO SCH (08:08)
[2019-10-28] MEDS: RANITIDINE HCL 15 MG/1 ML PO SCH ×2 (08:09→19:53)
[2019-10-28] MEDS: LEVOFLOXACIN 750 MG/D5W 150 ML 150 ML IV SCH (11:28)
[2019-10-28] MEDS: FLUCONAZOLE 400 MG/NS 200 ML 200 ML IV SCH (12:55)
--- NOTE | 2019-10-28 16:50 | NUR ---
DR. [facility] ZIMMERMAN HERE IN NURSING STATION AT REQUEST OF DR. Mcnamara. MADE AWARE OF HOSPITAL COURSE THUS FAR. DR. ZIMMERMAN REVIEWED CT SCAN, AND POSSIBILITY OF SURGERY DISCUSSED. STATES PATIENT WOULD NEED A PARTIAL PANCREATECTOMY AND A SPLENECTOMY. THAT PATIENT NEEDS VACCINES NOW BECAUSE THE SPLEEN WILL BE REMOVED IN. GAVE ORDER TO PRIMARY RN FOR VACCINES. "SO THERE IS NO DELAY". STATES WOULD DISCUSS WITH PRIMARY MD - DR. Mcnamara CALL TO [facility] TO MAKE AWARE OF DR. ZIMMERMAN'S VISIT AND WHAT WAS DISCUSSED REQUEST TO CALL DR. FALLON. CALL TO DR. Patel. NO ANSWER. WILL LEAVE NOTE FOR CM TO CONTACT
[2019-10-28] MEDS ORDERED: HYDROMORPHONE HCL 0.5 MG/0.5 ML ML ONE (17:11)
[2019-10-29] MEDS: HYDROCODONE/ACETAMINOPHEN 5/325 MG TAB PO PRN ×5 (00:12→18:13)
[2019-10-29] MEDS: HYDROMORPHONE HCL 0.5 MG/0.5 ML ML IVP PRN ×3 (03:05→21:30)
[2019-10-29 04:00] VITALS: BP 118/85
[2019-10-29 08:00] VITALS: BP 134/71
[2019-10-29] MEDS: PAROXETINE HCL 20 MG TABLET PO SCH (08:48)
[2019-10-29] MEDS: RANITIDINE HCL 15 MG/1 ML PO SCH ×2 (08:48→21:23)
[2019-10-29] MEDS: LEVOFLOXACIN 750 MG/D5W 150 ML 150 ML IV SCH (10:51)
[2019-10-29 11:00] VITALS: BP 126/73
[2019-10-29] MEDS ORDERED: FLUCONAZOLE 200 MG/NS 100 ML 100 ML ONE (15:56)
[2019-10-29 16:00] VITALS: BP 126/70
[2019-10-29] MEDS: LACTATED RINGERS 1000ML 1,000 ML IV SCH ×2 (16:32→20:15)
[2019-10-29] MEDS: FLUCONAZOLE 400 MG/NS 200 ML 200 ML IV SCH (16:33)
[2019-10-29 20:20] VITALS: BP 124/79
[2019-10-30 00:16] VITALS: BP 133/81
[2019-10-30] MEDS: ONDANSETRON HCL 4 MG/2 ML VIAL IVP PRN ×3 (02:48→21:04)
[2019-10-30] MEDS: HYDROMORPHONE HCL 0.5 MG/0.5 ML ML IVP PRN ×4 (02:49→23:33)
[2019-10-30 04:20] VITALS: BP 135/85
[2019-10-30] MEDS: LACTATED RINGERS 1000ML 1,000 ML IV SCH ×2 (04:52→20:39)
[2019-10-30] MEDS: SIMETHICONE 80 MG TAB.CHEW PO PRN (05:49)
[2019-10-30 08:00] VITALS: BP 146/93
[2019-10-30] MEDS: PAROXETINE HCL 20 MG TABLET PO SCH (08:28)
[2019-10-30] MEDS: RANITIDINE HCL 15 MG/1 ML PO SCH ×2 (08:28→20:41)
[2019-10-30] MEDS: LEVOFLOXACIN 750 MG/D5W 150 ML 150 ML IV SCH (10:47)
[2019-10-30 11:31] VITALS: BP 147/93
[2019-10-30] MEDS: FLUCONAZOLE 400 MG/NS 200 ML 200 ML IV SCH (12:52)
[2019-10-30 13:26] LABS: HEMATOCRIT 33.6 % (42-54); MEAN CORPUSCULAR HEMOGLOBIN 31.2 pg (27.0-33.0); MEAN CORPUSCULAR VOLUME 94.4 fL (79-99); PLATELET COUNT (AUTO) 370 K/uL (130-400); RED BLOOD CELL COUNT(AUTO) 3.56 MIL/uL (4.50-6.20); RED CELL DISTRIBUTION WIDTH 12.8 % (11.0-15.5); WHITE BLOOD COUNT (AUTO) 17.4 K/uL (4.8-10.8)
[2019-10-30 13:45] LABS: ALBUMIN 1.9 g/dL (3.5-5.0); BILIRUBIN,TOTAL 0.6 mg/dL (0.2-1.0); CREATININE 0.9 mg/dL (0.5-1.5); POTASSIUM 3.9 mmol/L (3.5-5.1); TOTAL PROTEIN, SERUM 5.7 g/dL (6.0-8.3)
[2019-10-30 16:00] VITALS: BP 146/93
[2019-10-30 19:00] VITALS: BP 151/93
[2019-10-31] VITALS (7 sets, daily range): BP systolic 141–157; BP diastolic 95–106
[2019-10-31] MEDS: HYDROMORPHONE HCL 0.5 MG/0.5 ML ML IVP PRN ×3 (05:37→18:41)
[2019-10-31] MEDS: ONDANSETRON HCL 4 MG/2 ML VIAL IVP PRN ×2 (05:37→18:41)
[2019-10-31] MEDS: LACTATED RINGERS 1000ML 1,000 ML IV SCH ×3 (05:44→22:15)
[2019-10-31 05:46] LABS: BASOPHILS % (AUTO) 0.1 % (0.0-5.0); EOSINOPHILS % (AUTO) 0.1 % (0.0-8.0); HEMATOCRIT 31.5 % (42-54); LYMPHOCYTES % (AUTO) 7.8 % (21.0-51.0); MEAN CORPUSCULAR HGB CONC 33.3 g/dL (32.0-36.0); MEAN CORPUSCULAR VOLUME 92.9 fL (79-99); NEUTROPHILS % (AUTO) 78.4 % (40.0-77.0); PLATELET COUNT (AUTO) 383 K/uL (130-400); RED BLOOD CELL COUNT(AUTO) 3.39 MIL/uL (4.50-6.20); RED CELL DISTRIBUTION WIDTH 12.9 % (11.0-15.5)
[2019-10-31 06:43] LABS: ALBUMIN 1.9 g/dL (3.5-5.0); BILIRUBIN,TOTAL 0.6 mg/dL (0.2-1.0); CREATININE 0.8 mg/dL (0.5-1.5); POTASSIUM 3.4 mmol/L (3.5-5.1); TOTAL PROTEIN, SERUM 5.8 g/dL (6.0-8.3)
[2019-10-31] MEDS: RANITIDINE HCL 15 MG/1 ML PO SCH ×3 (09:00→20:43)
[2019-10-31] MEDS: PAROXETINE HCL 20 MG TABLET PO SCH (09:09)
[2019-10-31] MEDS: LEVOFLOXACIN 750 MG/D5W 150 ML 150 ML IV SCH (10:01)
[2019-10-31] MEDS ORDERED: FLU VACC QS2019-20 36MOS UP/PF 60 MCG/0.5 ML ML IM ONE ×2 (10:30→11:09)
[2019-10-31] MEDS ORDERED: PNEUMOCOCCAL VACCINE POLYVALENT 0.5 ML/VIAL [PPV] IM ONE (10:30)
--- NOTE | 2019-10-31 10:42 | NUR ---
PASSED ON INFORMATION RE: DR. ZIMMERMAN 'S RE CONSULT VISIT THURSDAY TO [facility] DEPOSITING MACHINE TENDER LB AND TO PRIMARY RN CAMILLE ADVISED THEM DR. ZIMMERMAN VERBALIZED POSSIBLE PLAN TO DO A SPLENECTOMY/ PANCREATECTOMY NEXT WEEK. NOTED THAT NO VACCINE ORDERS FROM [facility] APPEAR IN THE CHART. VERBAL ORDERS WERE GIVEN THURSDAY UPDATED DR. FALLON VIA TEXT . NO RESPONSE YET. WILL FOLLOW UP WHEN MD ROUNDS?
[2019-10-31] MEDS ORDERED: PNEUMOCOCCAL VACCINE POLYVALENT 0.5 ML/VIAL [PPV] ONE (11:08)
[2019-10-31] MEDS: PNEUMOCOCCAL VACCINE POLYVALENT 0.5 ML/VIAL [PPV] IM SCH (11:21)
[2019-10-31] MEDS: FLU VACC QS2019-20 36MOS UP/PF 60 MCG/0.5 ML ML IM SCH (11:21)
[2019-10-31] MEDS ORDERED: ONDANSETRON HCL 4 MG/2 ML VIAL ONE (11:54)
--- NOTE | 2019-10-31 13:21 | NUR ---
NUTRITION RECOMMENDATIONS OF 10/30 DR. ZIMMERMAN VERBALIZED POSSIBLE PLAN TO DO A SPLENECTOMY/ PANCREATECTOMY NEXT WEEK, NOTED. DIET: CLEAR LIQUIDS SINCE 10/21, AND UNABLE TO ADVANCE DIET SINCE. PT REPORTS UNABLE TO TOLERATE LIQUIDS AT THIS TIME AND CONTINUES TO EXPERIENCE LEFT ABDOMINAL PAIN. HE ALSO STATED BM HAVE NOT IMPROVED; STILL HAVING LOOSE BM. SKIN IS INTACT. LABS AND MEDS REVIEWED. RD RECOMMENDS TO INITIATE NUTRITION VIA PPN VS. NJ TUBE DUE TO INADEQUATE EN/ PROTEIN INTAKE MONITOR WEIGHT CHANGES MONITOR LABS, BM, TOLERANCE RD WILL CONTINUE TO MONITOR AND FOLLOW UP, THANK YOU. Addendum: 10/31/19 at [address] Amended: Links added.
[2019-10-31] MEDS: FLUCONAZOLE 400 MG/NS 200 ML 200 ML IV SCH (13:52)
[2019-10-31] MEDS ORDERED: PROMETHAZINE HCL 25 MG/ML 1ML AMPULE IM PRN (15:15)
[2019-11-01] MEDS: ONDANSETRON HCL 4 MG/2 ML VIAL IVP PRN ×3 (00:53→16:58)
[2019-11-01] MEDS: HYDROMORPHONE HCL 0.5 MG/0.5 ML ML IVP PRN ×3 (00:54→16:58)
[2019-11-01 03:51] VITALS: BP 141/97
[2019-11-01 05:00] LABS: BASOPHILS % (AUTO) 0.1 % (0.0-5.0); EOSINOPHILS % (AUTO) 0.3 % (0.0-8.0); HEMATOCRIT 30.6 % (42-54); LYMPHOCYTES % (AUTO) 14.2 % (21.0-51.0); MEAN CORPUSCULAR HEMOGLOBIN 30.9 pg (27.0-33.0); MEAN CORPUSCULAR HGB CONC 33.3 g/dL (32.0-36.0); MEAN CORPUSCULAR VOLUME 92.7 fL (79-99); NEUTROPHILS % (AUTO) 67.7 % (40.0-77.0); PLATELET COUNT (AUTO) 352 K/uL (130-400); WHITE BLOOD COUNT (AUTO) 8.9 K/uL (4.8-10.8)
[2019-11-01 05:21] LABS: ALBUMIN 1.9 g/dL (3.5-5.0); BILIRUBIN,TOTAL 0.6 mg/dL (0.2-1.0); CREATININE 0.7 mg/dL (0.5-1.5); POTASSIUM 3.3 mmol/L (3.5-5.1)
[2019-11-01 08:00] VITALS: BP 156/98
[2019-11-01] MEDS: LORAZEPAM 2 MG/ML 1 ML VIAL IVP PRN (08:02)
[2019-11-01] MEDS: RANITIDINE HCL 15 MG/1 ML PO SCH ×2 (08:08→20:50)
[2019-11-01] MEDS: PAROXETINE HCL 20 MG TABLET PO SCH (08:08)
[2019-11-01] MEDS: LACTATED RINGERS 1000ML 1,000 ML IV SCH ×2 (08:09→17:57)
[2019-11-01] MEDS: FLU VACC QS2019-20 36MOS UP/PF 60 MCG/0.5 ML ML IM SCH (08:10)
[2019-11-01] MEDS: PNEUMOCOCCAL VACCINE POLYVALENT 0.5 ML/VIAL [PPV] IM SCH (10:42)
[2019-11-01] MEDS: LEVOFLOXACIN 750 MG/D5W 150 ML 150 ML IV SCH (10:43)
[2019-11-01 11:22] VITALS: BP 152/93
[2019-11-01] MEDS: FLUCONAZOLE 400 MG/NS 200 ML 200 ML IV SCH (12:55)
--- NOTE | 2019-11-01 15:20 | NUR ---
RD FOLLOW UP Pt with poor PO secondary to abdominal pain with eating. Pt pending surgical procedure, Clear Liquid diet greater than seven days. Pt with significant wt loss x 1mo. Severe malnutrition. Dobhoff placed. Recommend continuous Jevity 1.5 tube feeding to be advanced slowly: Start full strength at 20mls/hr for first 10hrs. Recommend advance slowly as tolerated, 5mls every 5hrs to goal of 45mls/hr to provide nutritional needs (1620kcal/69gm protein per day). Recommendations placed in Pt chart. RD to continue to monitor. Please notify RD as additional nutrition concerns arise. Thank you. Addendum: 11/01/19 at [address] Amended: Links added.
[2019-11-01 16:00] VITALS: BP 153/95
[2019-11-01] MEDS: POTASSIUM CHLORIDE 10% ELIXIR 20 MEQ/15 ML UDCUP PO PRN ×2 (16:54→17:58)
[2019-11-01 20:13] VITALS: BP 138/86
[2019-11-01 23:11] VITALS: BP 134/81
[2019-11-02] MEDS: ONDANSETRON HCL 4 MG/2 ML VIAL IVP PRN ×4 (00:16→18:39)
[2019-11-02] MEDS: HYDROMORPHONE HCL 0.5 MG/0.5 ML ML IVP PRN ×4 (00:16→18:39)
[2019-11-02 03:00] VITALS: BP 121/70
[2019-11-02 04:53] LABS: BASOPHILS % (AUTO) 0.3 % (0.0-5.0); EOSINOPHILS % (AUTO) 1.7 % (0.0-8.0); HEMATOCRIT 29.2 % (42-54); LYMPHOCYTES % (AUTO) 20.3 % (21.0-51.0); MEAN CORPUSCULAR HEMOGLOBIN 30.2 pg (27.0-33.0); MEAN CORPUSCULAR HGB CONC 32.2 g/dL (32.0-36.0); MEAN CORPUSCULAR VOLUME 93.9 fL (79-99); MONOCYTES % (AUTO) 20.1 % (3.0-13.0); NEUTROPHILS % (AUTO) 56.7 % (40.0-77.0); PLATELET COUNT (AUTO) 315 K/uL (130-400); RED BLOOD CELL COUNT(AUTO) 3.11 MIL/uL (4.50-6.20); RED CELL DISTRIBUTION WIDTH 13.2 % (11.0-15.5); WHITE BLOOD COUNT (AUTO) 7.9 K/uL (4.8-10.8)
[2019-11-02 05:26] LABS: ALBUMIN 1.7 g/dL (3.5-5.0); BILIRUBIN,TOTAL 0.8 mg/dL (0.2-1.0); POTASSIUM 3.2 mmol/L (3.5-5.1); TOTAL PROTEIN, SERUM 5.3 g/dL (6.0-8.3)
[2019-11-02 08:04] VITALS: BP 125/68
[2019-11-02] MEDS: RANITIDINE HCL 15 MG/1 ML PO SCH ×2 (09:00→22:14)
[2019-11-02] MEDS: FLU VACC QS2019-20 36MOS UP/PF 60 MCG/0.5 ML ML IM SCH (09:00)
[2019-11-02] MEDS: POTASSIUM CHLORIDE 10% ELIXIR 20 MEQ/15 ML UDCUP PO PRN ×3 (09:05→17:49)
[2019-11-02] MEDS: PAROXETINE HCL 20 MG TABLET PO SCH (09:06)
[2019-11-02] MEDS: PNEUMOCOCCAL VACCINE POLYVALENT 0.5 ML/VIAL [PPV] IM SCH (11:15)
[2019-11-02 12:00] VITALS: BP 143/84
[2019-11-02] MEDS: FLUCONAZOLE 400 MG/NS 200 ML 200 ML IV SCH (15:02)
--- NOTE | 2019-11-02 15:57 | NUR ---
RD UPDATE Pt to continue to advance to goal tube feeding rate as per RN. Tube feeding at 30mls/hr this AM. Pt tolerating with no report of GI distress. RD to continue to monitor tolerance.
[2019-11-02 16:00] VITALS: BP 132/78
[2019-11-02 19:56] VITALS: BP 132/86
[2019-11-02 23:51] VITALS: BP 128/76
[2019-11-03] MEDS: HYDROMORPHONE HCL 0.5 MG/0.5 ML ML IVP PRN ×4 (00:52→19:02)
[2019-11-03] MEDS: ONDANSETRON HCL 4 MG/2 ML VIAL IVP PRN ×4 (00:52→19:01)
[2019-11-03 03:46] VITALS: BP 139/80
[2019-11-03] MEDS: POTASSIUM CHLORIDE 10% ELIXIR 20 MEQ/15 ML UDCUP PO PRN ×2 (07:10→21:46)
[2019-11-03] MEDS: FLU VACC QS2019-20 36MOS UP/PF 60 MCG/0.5 ML ML IM SCH (09:00)
[2019-11-03] MEDS: RANITIDINE HCL 15 MG/1 ML PO SCH ×2 (09:00→21:45)
[2019-11-03 09:17] VITALS: BP 126/87
[2019-11-03] MEDS: PNEUMOCOCCAL VACCINE POLYVALENT 0.5 ML/VIAL [PPV] IM SCH (09:24)
[2019-11-03] MEDS: PAROXETINE HCL 20 MG TABLET PO SCH (09:25)
[2019-11-03 11:28] VITALS: BP 141/90
[2019-11-03] MEDS: FLUCONAZOLE 400 MG/NS 200 ML 200 ML IV SCH (14:52)
[2019-11-03 17:08] VITALS: BP 141/97
[2019-11-03 19:00] VITALS: BP 143/98
[2019-11-03 19:31] LABS: POTASSIUM 3.5 mmol/L (3.5-5.1)
[2019-11-03 19:39] LABS: HEMATOCRIT 33.5 % (42-54); MEAN CORPUSCULAR HEMOGLOBIN 32.1 pg (27.0-33.0); MEAN CORPUSCULAR HGB CONC 33.7 g/dL (32.0-36.0); MEAN CORPUSCULAR VOLUME 95.2 fL (79-99); PLATELET COUNT (AUTO) 482 K/uL (130-400); RED BLOOD CELL COUNT(AUTO) 3.52 MIL/uL (4.50-6.20); RED CELL DISTRIBUTION WIDTH 13.2 % (11.0-15.5); WHITE BLOOD COUNT (AUTO) 12.6 K/uL (4.8-10.8)
--- NOTE | 2019-11-03 20:40 | NUR ---
MEDS SHIFT ASSESSMENT DONE, PLEASE REFER TO CHART. DUE MEDS ADMINISTERED, TOLERATED WELL. PLACED BACK DOBHOFF TO FEEDING, AT 20CC/HR PER PT REQUEST PT CLAIMS HE IS HAVING A LOT OF BLOATING WITH THE 40CC/HR. WILL MONITOR PT. CALL LIGHT WITHIN REACH. Addendum: 11/03/19 at 8164 by BRAD CHIRINOS RN RN Amended: Links added.
[2019-11-03] MEDS ORDERED: LEVOFLOXACIN 750 MG/D5W 150 ML 150 ML IV SCH (23:45)
--- NOTE | 2019-11-03 23:45 | NUR ---
PAGED PAGED AJ, WAXER OPERATOR SHARED SERVICES REPRESENTATIVE FOR HOSPITALIST, VIA ANSWERING SERVICE. WAXER OPERATOR CALLED BACK AND REFERRED PT'S ANTIBIOTIC AND IVF PENDING RENEWAL OF ORDER. WAXER OPERATOR INFORMED WELL OF PT NOT TOLERATING HIS FEEDING, THUS WAS DROPPED TO 20CC/HR. NEW ORDERS GIVEN, PLEASE REFER TO CPOE.
[2019-11-04] VITALS (8 sets, daily range): BP systolic 124–171; BP diastolic 87–108
[2019-11-04] MEDS: LACTATED RINGERS 1000ML 1,000 ML IV SCH ×3 (00:16→22:05)
[2019-11-04] MEDS: HYDROMORPHONE HCL 0.5 MG/0.5 ML ML IVP PRN ×2 (01:35→07:50)
[2019-11-04] MEDS: ONDANSETRON HCL 4 MG/2 ML VIAL IVP PRN ×4 (01:35→20:44)
--- NOTE | 2019-11-04 01:35 | NUR ---
PAIN PT CLAIMS OF ABDOMINAL PAINS AND NAUSEA. MEDICATED WITH ZOFRAN AND DILAUDID IV. KEPT COMFORTABLE IN BED. WILL RE-ASSESS PT.
--- NOTE | 2019-11-04 05:00 | NUR ---
REFUSED PT REFUSED SCD'S AT THIS TIME.
[2019-11-04] MEDS ORDERED: LEVOFLOXACIN 750 MG/D5W 150 ML 150 ML IV SCH (06:45)
--- NOTE | 2019-11-04 07:10 | NUR ---
REPORT ENDORSED PT TO AM SHIFT JERILYN DA SILVA FOR MORE CARE AND MANAGEMENT.
[2019-11-04] MEDS: PAROXETINE HCL 20 MG TABLET PO SCH (07:50)
[2019-11-04] MEDS: RANITIDINE HCL 15 MG/1 ML PO SCH ×2 (07:50→20:44)
--- NOTE | 2019-11-04 10:45 | NUR ---
TUBE FEEDING RECOMMENDATIONS PROVIDE JEVITY 1.5 AT A VERY LOW RATE OF 10 OR 15ML/HR - SLOWLY INCREASE RATE TOLERATED RD RECOMMENDS TO INCREASE JEVITY 1.5 RATE BY 5MLS TOLERATED; GOAL RATE IS 45ML/HR CHANGE FLUSHES TO 75MLS EVERY 2 HRS, TOLERATED. RD WILL CONTINUE TO MONITOR AND FOLLOW UP, THANK YOU.
[2019-11-04] MEDS: TEMAZEPAM 7.5 MG CAPSULE PO PRN (12:40)
[2019-11-04] MEDS: MORPHINE SULFATE 2 MG/ML 1ML SYG IM PRN ×2 (14:17→20:46)
[2019-11-04] MEDS: FLUCONAZOLE 400 MG/NS 200 ML 200 ML IV SCH (15:24)
[2019-11-04] MEDS: LEVOFLOXACIN 750 MG/D5W 150 ML 150 ML IV SCH (22:06)
[2019-11-05] VITALS (7 sets, daily range): BP systolic 142–160; BP diastolic 86–111
--- NOTE | 2019-11-05 00:20 | NUR ---
GT FEEDING GT FEEDING RESUMED PER DIETARY RECOMMENDATION, STARTING RATE @10ml/hr. hob up 40 degrees, aspiration precautions. PRIOR TO FEEDING , NGT CHECKED FOR PATENCY WITH AIR BOLUS , + FOR BORBORYGMUS , RESIDUAL < 5ML , FEEDING RESUMED POST 75ML H2O FLUSH TO LEFT NARE NGT Addendum: 11/05/19 at 0030 by ISELA BECERRIL RN RN Amended: Links added.
[2019-11-05] MEDS: ONDANSETRON HCL 4 MG/2 ML VIAL IVP PRN ×3 (02:53→23:55)
[2019-11-05] MEDS: MORPHINE SULFATE 2 MG/ML 1ML SYG IM PRN ×3 (02:54→13:10)
[2019-11-05] MEDS: LACTATED RINGERS 1000ML 1,000 ML IV SCH ×3 (05:05→22:26)
[2019-11-05 05:54] LABS: BASOPHILS % (AUTO) 0.2 % (0.0-5.0); HEMATOCRIT 32.1 % (42-54); LYMPHOCYTES % (AUTO) 13.1 % (21.0-51.0); MEAN CORPUSCULAR VOLUME 93.9 fL (79-99); MONOCYTES % (AUTO) 15.2 % (3.0-13.0); NEUTROPHILS % (AUTO) 68.1 % (40.0-77.0); PLATELET COUNT (AUTO) 417 K/uL (130-400); RED BLOOD CELL COUNT(AUTO) 3.42 MIL/uL (4.50-6.20); RED CELL DISTRIBUTION WIDTH 13.2 % (11.0-15.5); WHITE BLOOD COUNT (AUTO) 10.3 K/uL (4.8-10.8)
--- NOTE | 2019-11-05 06:05 | NUR ---
NGT FEEDING INCREASED TO 15ML/HR, FLUSHED WITH 75ML H2O(FREE WATER),TOLERATED SO FAR Addendum: 11/05/19 at 0644 by ISELA BECERRIL RN RN Amended: Links added.
[2019-11-05 06:25] LABS: BILIRUBIN,TOTAL 0.5 mg/dL (0.2-1.0); CREATININE 0.8 mg/dL (0.5-1.5); POTASSIUM 4.1 mmol/L (3.5-5.1); TOTAL PROTEIN, SERUM 6.3 g/dL (6.0-8.3)
[2019-11-05] MEDS: RANITIDINE HCL 15 MG/1 ML PO SCH ×2 (08:38→20:49)
[2019-11-05] MEDS: PAROXETINE HCL 20 MG TABLET PO SCH (08:38)
[2019-11-05] MEDS: FLUCONAZOLE 400 MG/NS 200 ML 200 ML IV SCH (13:10)
[2019-11-05] MEDS ORDERED: LISINOPRIL 10 MG TABLET PO SCH (13:30)
[2019-11-05] MEDS ORDERED: HYDROMORPHONE HCL 0.5 MG/0.5 ML ML IVP ONE (16:00)
[2019-11-05] MEDS ORDERED: HYDROMORPHONE HCL 2 MG/ML VIAL IVP PRN (17:30)
[2019-11-05] MEDS ORDERED: IOHEXOL-350 75 ML VIAL IV ONE (17:40)
[2019-11-05] MEDS: HYDROMORPHONE 1 MG/1 ML AMP IVP PRN (18:10)
[2019-11-05 19:45] LABS: BASOPHILS % (AUTO) 0.4 % (0.0-5.0); HEMATOCRIT 38.9 % (42-54); LYMPHOCYTES % (AUTO) 7.9 % (21.0-51.0); MEAN CORPUSCULAR HEMOGLOBIN 30.5 pg (27.0-33.0); MEAN CORPUSCULAR HGB CONC 33.2 g/dL (32.0-36.0); MONOCYTES % (AUTO) 10.6 % (3.0-13.0); NEUTROPHILS % (AUTO) 79.2 % (40.0-77.0); PLATELET COUNT (AUTO) 656 K/uL (130-400); RED BLOOD CELL COUNT(AUTO) 4.23 MIL/uL (4.50-6.20); RED CELL DISTRIBUTION WIDTH 13.2 % (11.0-15.5); WHITE BLOOD COUNT (AUTO) 24.7 K/uL (4.8-10.8)
[2019-11-05 20:33] LABS: BAND NEUTROPHILS % (MANUAL) 5 % (0-2); LYMPHOCYTES % (MANUAL) 6 % (22-44); MONOCYTES % (MANUAL) 7 % (2-9); REACTIVE LYMPHOCYTES 2 % (0-0); SEGMENTED NEUTROPHILS % 80 % (40-70)
[2019-11-05 20:34] LABS: MAN.DIFF COMMENT-IMPRESSION MANUAL DIFFERENTIAL; PLATELET MORPHOLOGY COMMENT INCREASED
[2019-11-05] MEDS: LEVOFLOXACIN 750 MG/D5W 150 ML 150 ML IV SCH (22:26)
[2019-11-06 03:00] VITALS: BP 140/86
[2019-11-06 05:54] LABS: BASOPHILS % (AUTO) 0.3 % (0.0-5.0); EOSINOPHILS % (AUTO) 0.4 % (0.0-8.0); HEMATOCRIT 33.1 % (42-54); LYMPHOCYTES % (AUTO) 12.8 % (21.0-51.0); MEAN CORPUSCULAR HEMOGLOBIN 30.9 pg (27.0-33.0); MEAN CORPUSCULAR HGB CONC 33.2 g/dL (32.0-36.0); MONOCYTES % (AUTO) 15.3 % (3.0-13.0); NEUTROPHILS % (AUTO) 69.2 % (40.0-77.0); PLATELET COUNT (AUTO) 461 K/uL (130-400); RED BLOOD CELL COUNT(AUTO) 3.56 MIL/uL (4.50-6.20); RED CELL DISTRIBUTION WIDTH 13.3 % (11.0-15.5); WHITE BLOOD COUNT (AUTO) 12.9 K/uL (4.8-10.8)
[2019-11-06] MEDS: HYDROMORPHONE 1 MG/1 ML AMP IVP PRN ×4 (06:07→17:57)
[2019-11-06] MEDS: ONDANSETRON HCL 4 MG/2 ML VIAL IVP PRN ×3 (06:07→17:58)
[2019-11-06 06:14] LABS: ALBUMIN 1.8 g/dL (3.5-5.0); BILIRUBIN,TOTAL 0.4 mg/dL (0.2-1.0); CREATININE 0.8 mg/dL (0.5-1.5); TOTAL PROTEIN, SERUM 5.8 g/dL (6.0-8.3)
[2019-11-06 08:00] VITALS: BP 138/89
[2019-11-06] MEDS: PAROXETINE HCL 20 MG TABLET PO SCH (09:39)
[2019-11-06] MEDS: LISINOPRIL 10 MG TABLET PO SCH (09:39)
[2019-11-06] MEDS: RANITIDINE HCL 15 MG/1 ML PO SCH ×2 (09:39→22:33)
--- NOTE | 2019-11-06 10:20 | NUR ---
Called consult to Dr. Urias; pending call back.
[2019-11-06 11:00] VITALS: BP 137/94
[2019-11-06] MEDS: FLUCONAZOLE 400 MG/NS 200 ML 200 ML IV SCH (14:27)
[2019-11-06 16:00] VITALS: BP 160/105
[2019-11-06] MEDS: HYDRALAZINE HCL 20 MG/ML VIAL IV PRN (16:48)
[2019-11-06 19:00] VITALS: BP 131/79
[2019-11-06] MEDS: LACTATED RINGERS 1000ML 1,000 ML IV SCH ×2 (21:45→22:33)
[2019-11-06] MEDS: LEVOFLOXACIN 750 MG/D5W 150 ML 150 ML IV SCH (22:33)
[2019-11-06 23:00] VITALS: BP 142/91
[2019-11-07] VITALS (7 sets, daily range): BP systolic 129–156; BP diastolic 74–105
[2019-11-07] MEDS: ONDANSETRON HCL 4 MG/2 ML VIAL IVP PRN ×3 (00:28→18:54)
[2019-11-07] MEDS: HYDROMORPHONE 1 MG/1 ML AMP IVP PRN ×4 (00:29→18:54)
[2019-11-07 05:20] LABS: BASOPHILS % (AUTO) 0.3 % (0.0-5.0); EOSINOPHILS % (AUTO) 0.6 % (0.0-8.0); HEMATOCRIT 34.9 % (42-54); LYMPHOCYTES % (AUTO) 11.7 % (21.0-51.0); MEAN CORPUSCULAR HEMOGLOBIN 30.5 pg (27.0-33.0); MEAN CORPUSCULAR HGB CONC 32.1 g/dL (32.0-36.0); MEAN CORPUSCULAR VOLUME 95.1 fL (79-99); MONOCYTES % (AUTO) 13.4 % (3.0-13.0); NEUTROPHILS % (AUTO) 71.8 % (40.0-77.0); PLATELET COUNT (AUTO) 541 K/uL (130-400); RED BLOOD CELL COUNT(AUTO) 3.67 MIL/uL (4.50-6.20); RED CELL DISTRIBUTION WIDTH 13.7 % (11.0-15.5); WHITE BLOOD COUNT (AUTO) 18.1 K/uL (4.8-10.8)
[2019-11-07 05:45] LABS: ALBUMIN 1.8 g/dL (3.5-5.0); BILIRUBIN,TOTAL 0.4 mg/dL (0.2-1.0); CREATININE 0.9 mg/dL (0.5-1.5); POTASSIUM 3.7 mmol/L (3.5-5.1); TOTAL PROTEIN, SERUM 6.1 g/dL (6.0-8.3)
[2019-11-07] MEDS: LACTATED RINGERS 1000ML 1,000 ML IV SCH ×3 (07:45→23:59)
[2019-11-07] MEDS: LISINOPRIL 10 MG TABLET PO SCH (09:04)
[2019-11-07] MEDS: PAROXETINE HCL 20 MG TABLET PO SCH (09:04)
[2019-11-07] MEDS: RANITIDINE HCL 15 MG/1 ML PO SCH ×2 (09:04→22:28)
[2019-11-07] MEDS: HYDRALAZINE HCL 20 MG/ML VIAL IV PRN (11:47)
[2019-11-07] MEDS: HYDROCODONE/ACETAMINOPHEN 5/325 MG TAB PO PRN ×2 (11:53→22:35)
[2019-11-07] MEDS: FLUCONAZOLE 400 MG/NS 200 ML 200 ML IV SCH (12:59)
[2019-11-07] MEDS: LEVOFLOXACIN 750 MG/D5W 150 ML 150 ML IV SCH (22:28)
[2019-11-08] VITALS (12 sets, daily range): BP systolic 130–163; BP diastolic 79–100
[2019-11-08] MEDS: HYDROMORPHONE 1 MG/1 ML AMP IVP PRN ×4 (00:59→20:17)
[2019-11-08] MEDS: ONDANSETRON HCL 4 MG/2 ML VIAL IVP PRN ×3 (01:00→20:17)
[2019-11-08] MEDS: HYDROCODONE/ACETAMINOPHEN 5/325 MG TAB PO PRN ×3 (06:01→17:46)
--- NOTE | 2019-11-08 08:20 | NUR ---
RECEIVED REPORT DR PEÑA STATED NO SURGERY AT THIS TIME, UPON REVIEWING NOTES, DR PEÑA STATES ON NOTE DATED 11/05 "WILL PROCEED WITH NEPHROSTOMY TUBE PLACEMENT BY [IR]", PLACED CALL TO OFFICE FOR CLARIFICATION, NOT AVAILABLE AT THIS TIME, SPOKE TO NURSE FRANCIE, STATES MD IS NOT AVAILABLE. PAGED DR PEÑA FOR CLARIFICATION, PENDING CALL BACK.
[2019-11-08] MEDS: PAROXETINE HCL 20 MG TABLET PO SCH (10:40)
[2019-11-08] MEDS: RANITIDINE HCL 15 MG/1 ML PO SCH ×2 (10:40→20:20)
[2019-11-08] MEDS: LISINOPRIL 10 MG TABLET PO SCH (10:40)
[2019-11-08] MEDS: LACTATED RINGERS 1000ML 1,000 ML IV SCH (10:40)
--- NOTE | 2019-11-08 12:05 | NUR ---
RD FOLLOW UP NOTE Pt not tolerating tube feedings, as per RN. Pt continued with abdominal pain, nausea and vomiting. Pt NPO, pending surgical intervention as per RN. RD to continue to monitor. Please notify RD as additional nutrition concerns arise. Thank you. Addendum: 11/08/19 at [address] Amended: Links added.
[2019-11-08] MEDS ORDERED: MIDAZOLAM HCL 1 MG/ML 2ML VIAL ONE (14:06)
[2019-11-08] MEDS ORDERED: FENTANYL CITRATE PF 50 MCG/1 ML 2ML VIAL ONE (14:06)
[2019-11-08] MEDS ORDERED: LIDOCAINE HCL 1% MDV 50ML VIAL ONE (14:07)
[2019-11-08] MEDS ORDERED: IOHEXOL-350 75 ML VIAL IV ONE (14:53)
[2019-11-08] MEDS: FLUCONAZOLE 400 MG/NS 200 ML 200 ML IV SCH (17:49)
[2019-11-09] VITALS (8 sets, daily range): BP systolic 126–150; BP diastolic 75–97
[2019-11-09] MEDS: LEVOFLOXACIN 750 MG/D5W 150 ML 150 ML IV SCH ×2 (01:26→23:41)
[2019-11-09] MEDS: LACTATED RINGERS 1000ML 1,000 ML IV SCH ×2 (01:33→13:39)
[2019-11-09] MEDS: ONDANSETRON HCL 4 MG/2 ML VIAL IVP PRN ×4 (02:51→21:31)
[2019-11-09] MEDS: HYDROMORPHONE 1 MG/1 ML AMP IVP PRN ×4 (02:51→21:32)
[2019-11-09] MEDS: HYDROCODONE/ACETAMINOPHEN 5/325 MG TAB PO PRN ×4 (06:03→23:41)
[2019-11-09] MEDS: PAROXETINE HCL 20 MG TABLET PO SCH (09:06)
[2019-11-09] MEDS: LISINOPRIL 10 MG TABLET PO SCH (09:06)
[2019-11-09] MEDS: RANITIDINE HCL 15 MG/1 ML PO SCH ×2 (09:06→21:31)
[2019-11-09 11:23] LABS: CREATININE 0.7 mg/dL (0.5-1.5); POTASSIUM 3.3 mmol/L (3.5-5.1)
[2019-11-09 11:28] LABS: ALBUMIN 1.6 g/dL (3.5-5.0); BILIRUBIN,TOTAL 0.6 mg/dL (0.2-1.0); TOTAL PROTEIN, SERUM 5.6 g/dL (6.0-8.3)
[2019-11-09 11:32] LABS: BASOPHILS % (AUTO) 0.1 % (0.0-5.0); EOSINOPHILS % (AUTO) 0.5 % (0.0-8.0); HEMATOCRIT 29.3 % (42-54); LYMPHOCYTES % (AUTO) 10.6 % (21.0-51.0); MEAN CORPUSCULAR HEMOGLOBIN 31.2 pg (27.0-33.0); MEAN CORPUSCULAR HGB CONC 33.1 g/dL (32.0-36.0); MEAN CORPUSCULAR VOLUME 94.2 fL (79-99); MONOCYTES % (AUTO) 10.9 % (3.0-13.0); NEUTROPHILS % (AUTO) 76.7 % (40.0-77.0); PLATELET COUNT (AUTO) 427 K/uL (130-400); RED BLOOD CELL COUNT(AUTO) 3.11 MIL/uL (4.50-6.20); RED CELL DISTRIBUTION WIDTH 13.8 % (11.0-15.5); WHITE BLOOD COUNT (AUTO) 13.8 K/uL (4.8-10.8)
[2019-11-09] MEDS: FLUCONAZOLE 400 MG/NS 200 ML 200 ML IV SCH (13:32)
[2019-11-09] MEDS ORDERED: LIDOCAINE HCL-MPF 1% 2ML VIAL IV PRN (17:15)
[2019-11-09] MEDS ORDERED: POTASSIUM CHLORIDE 20MEQ/100ML 100 ML IV PRN (17:15)
[2019-11-09] MEDS: POTASSIUM CHLORIDE 10% ELIXIR 20 MEQ/15 ML UDCUP PO PRN ×3 (18:51→23:41)
[2019-11-10] MEDS: LACTATED RINGERS 1000ML 1,000 ML IV SCH ×2 (02:59→04:13)
[2019-11-10] MEDS: HYDROMORPHONE 1 MG/1 ML AMP IVP PRN ×4 (03:01→21:45)
[2019-11-10] MEDS: ONDANSETRON HCL 4 MG/2 ML VIAL IVP PRN ×3 (03:01→21:44)
[2019-11-10 04:00] VITALS: BP 125/72
[2019-11-10 04:12] LABS: BASOPHILS % (AUTO) 0.2 % (0.0-5.0); EOSINOPHILS % (AUTO) 1.7 % (0.0-8.0); HEMATOCRIT 27.6 % (42-54); LYMPHOCYTES % (AUTO) 10.6 % (21.0-51.0); MEAN CORPUSCULAR HGB CONC 32.2 g/dL (32.0-36.0); MEAN CORPUSCULAR VOLUME 96.2 fL (79-99); MONOCYTES % (AUTO) 10.6 % (3.0-13.0); NEUTROPHILS % (AUTO) 75.5 % (40.0-77.0); PLATELET COUNT (AUTO) 399 K/uL (130-400); RED BLOOD CELL COUNT(AUTO) 2.87 MIL/uL (4.50-6.20); RED CELL DISTRIBUTION WIDTH 13.9 % (11.0-15.5); WHITE BLOOD COUNT (AUTO) 12.5 K/uL (4.8-10.8)
[2019-11-10 04:32] LABS: ALBUMIN 1.5 g/dL (3.5-5.0); BILIRUBIN,TOTAL 0.5 mg/dL (0.2-1.0); CREATININE 0.8 mg/dL (0.5-1.5); MAGNESIUM 1.6 mg/dL (1.80-2.40); POTASSIUM 3.7 mmol/L (3.5-5.1); TOTAL PROTEIN, SERUM 5.5 g/dL (6.0-8.3)
[2019-11-10 05:30] LABS: ERYTHROCYTE SEDIMENTATION RATE 51 MM/HR (0-15)
[2019-11-10 05:53] LABS: CRP QUANTITATIVE 425.6 mg/L (0.00-9.0)
[2019-11-10] MEDS: HYDROCODONE/ACETAMINOPHEN 5/325 MG TAB PO PRN ×3 (06:31→19:21)
[2019-11-10] MEDS: POTASSIUM CHLORIDE 10% ELIXIR 20 MEQ/15 ML UDCUP PO PRN (06:32)
[2019-11-10 07:59] VITALS: BP 132/74
[2019-11-10] MEDS ORDERED: EPOETIN ALFA 10,000 UNIT/ML VIAL SQ SCH (08:00)
[2019-11-10] MEDS: PAROXETINE HCL 20 MG TABLET PO SCH (09:01)
[2019-11-10] MEDS: RANITIDINE HCL 15 MG/1 ML PO SCH ×2 (09:01→21:44)
[2019-11-10] MEDS: LISINOPRIL 10 MG TABLET PO SCH (09:01)
[2019-11-10] MEDS ORDERED: IRON SUCROSE COMPLEX 300 MG in SODIUM CHLORIDE 0.9% 250 ML IV SCH (09:51)
--- NOTE | 2019-11-10 11:04 | NUR ---
CONSULTED TO RE START FEEDINGS S/p L. Nephrostomy tube placement 11/08/19. Pending surgical intervention decision; considering surgical debridement of pseudocyst and possible splenectomy, noted. Primary doc ordered to re start feedings, as per RN. Labs and meds reviewed. Skin is intact. RD recommends to start TF using Jevity 1.5 at 15ml/hr for the first 10hrs, RN notified Increase rate as tolerated Goal rate is 45ml/hr Flush with 75ml every 2hrs RD was notified. Monitor tolerance, residuals, labs, BM RD will continue to monitor and follow up, thank you.
[2019-11-10 11:11] VITALS: BP 122/79
[2019-11-10] MEDS: FLUCONAZOLE 400 MG/NS 200 ML 200 ML IV SCH (12:51)
[2019-11-10 16:53] VITALS: BP 137/78
[2019-11-10 19:45] VITALS: BP 133/77
[2019-11-10] MEDS: LEVOFLOXACIN 750 MG/D5W 150 ML 150 ML IV SCH (21:50)
[2019-11-10] MEDS: MAGNESIUM 2GM PREMIX 50ML 50 ML IV SCH (22:49)
[2019-11-11 00:02] VITALS: BP 121/74
[2019-11-11 03:49] LABS: BASOPHILS % (AUTO) 0.3 % (0.0-5.0); EOSINOPHILS % (AUTO) 1.4 % (0.0-8.0); HEMATOCRIT 29.1 % (42-54); MEAN CORPUSCULAR HEMOGLOBIN 30.4 pg (27.0-33.0); MEAN CORPUSCULAR HGB CONC 32.6 g/dL (32.0-36.0); MEAN CORPUSCULAR VOLUME 93.3 fL (79-99); MONOCYTES % (AUTO) 11.1 % (3.0-13.0); NEUTROPHILS % (AUTO) 72.7 % (40.0-77.0); PLATELET COUNT (AUTO) 445 K/uL (130-400); RED BLOOD CELL COUNT(AUTO) 3.12 MIL/uL (4.50-6.20); WHITE BLOOD COUNT (AUTO) 14.4 K/uL (4.8-10.8)
[2019-11-11 04:02] VITALS: BP 131/80
[2019-11-11] MEDS: HYDROMORPHONE 1 MG/1 ML AMP IVP PRN ×4 (04:20→22:21)
[2019-11-11] MEDS: ONDANSETRON HCL 4 MG/2 ML VIAL IVP PRN ×3 (04:20→22:20)
[2019-11-11 04:23] LABS: ALBUMIN 1.7 g/dL (3.5-5.0); BILIRUBIN,DIRECT 0.1 mg/dL (0.0-0.3); BILIRUBIN,TOTAL 0.4 mg/dL (0.2-1.0); CREATININE 0.8 mg/dL (0.5-1.5); MAGNESIUM 2.3 mg/dL (1.80-2.40); PHOSPHORUS 4.6 mg/dL (2.5-4.9); POTASSIUM 3.4 mmol/L (3.5-5.1); TOTAL PROTEIN, SERUM 6.2 g/dL (6.0-8.3)
[2019-11-11] MEDS: POTASSIUM CHLORIDE 10% ELIXIR 20 MEQ/15 ML UDCUP PO PRN ×2 (04:39→06:21)
[2019-11-11] MEDS ORDERED: MORPHINE SULFATE 2 MG/ML 1ML SYG IM PRN (06:00)
[2019-11-11 07:30] VITALS: BP 125/84
[2019-11-11] MEDS ORDERED: IRON SUCROSE COMPLEX 400 MG in SODIUM CHLORIDE 0.9% 250 ML IV SCH (08:00)
[2019-11-11] MEDS: RANITIDINE HCL 15 MG/1 ML PO SCH ×2 (10:21→20:33)
[2019-11-11] MEDS: PAROXETINE HCL 20 MG TABLET PO SCH (10:21)
[2019-11-11] MEDS: LISINOPRIL 10 MG TABLET PO SCH (10:22)
[2019-11-11 11:00] VITALS: BP 129/80
[2019-11-11] MEDS: FLUCONAZOLE 400 MG/NS 200 ML 200 ML IV SCH (13:39)
[2019-11-11 16:00] VITALS: BP 137/89
[2019-11-11 21:03] VITALS: BP 131/69
[2019-11-11] MEDS: LEVOFLOXACIN 750 MG/D5W 150 ML 150 ML IV SCH (22:18)
[2019-11-12] VITALS (7 sets, daily range): BP systolic 116–141; BP diastolic 71–91
[2019-11-12] MEDS: HYDROMORPHONE 1 MG/1 ML AMP IVP PRN ×4 (04:24→22:40)
[2019-11-12] MEDS: ONDANSETRON HCL 4 MG/2 ML VIAL IVP PRN ×4 (04:25→22:40)
[2019-11-12 05:07] LABS: BASOPHILS % (AUTO) 0.2 % (0.0-5.0); HEMATOCRIT 30.8 % (42-54); LYMPHOCYTES % (AUTO) 16.3 % (21.0-51.0); MEAN CORPUSCULAR HEMOGLOBIN 30.8 pg (27.0-33.0); MEAN CORPUSCULAR HGB CONC 32.1 g/dL (32.0-36.0); MONOCYTES % (AUTO) 11.2 % (3.0-13.0); NEUTROPHILS % (AUTO) 67.6 % (40.0-77.0); PLATELET COUNT (AUTO) 422 K/uL (130-400); RED BLOOD CELL COUNT(AUTO) 3.21 MIL/uL (4.50-6.20); RED CELL DISTRIBUTION WIDTH 13.9 % (11.0-15.5); WHITE BLOOD COUNT (AUTO) 9.4 K/uL (4.8-10.8)
[2019-11-12 05:41] LABS: ALBUMIN 1.7 g/dL (3.5-5.0); BILIRUBIN,TOTAL 0.3 mg/dL (0.2-1.0); CREATININE 0.7 mg/dL (0.5-1.5); POTASSIUM 3.8 mmol/L (3.5-5.1); TOTAL PROTEIN, SERUM 6.3 g/dL (6.0-8.3)
[2019-11-12] MEDS: LISINOPRIL 10 MG TABLET PO SCH (09:37)
[2019-11-12] MEDS: PAROXETINE HCL 20 MG TABLET PO SCH (09:37)
[2019-11-12] MEDS: RANITIDINE HCL 15 MG/1 ML PO SCH ×2 (09:37→22:09)
[2019-11-12] MEDS: FLUCONAZOLE 400 MG/NS 200 ML 200 ML IV SCH (13:35)
[2019-11-12] MEDS: LEVOFLOXACIN 750 MG/D5W 150 ML 150 ML IV SCH (22:04)
[2019-11-13 03:15] VITALS: BP 131/81
[2019-11-13] MEDS: HYDROMORPHONE 1 MG/1 ML AMP IVP PRN ×3 (04:46→18:14)
[2019-11-13] MEDS: ONDANSETRON HCL 4 MG/2 ML VIAL IVP PRN ×3 (04:46→18:13)
[2019-11-13 06:40] LABS: BASOPHILS % (AUTO) 0.4 % (0.0-5.0); HEMATOCRIT 32.4 % (42-54); LYMPHOCYTES % (AUTO) 16.1 % (21.0-51.0); MEAN CORPUSCULAR HGB CONC 32.1 g/dL (32.0-36.0); MEAN CORPUSCULAR VOLUME 96.7 fL (79-99); MONOCYTES % (AUTO) 10.2 % (3.0-13.0); NEUTROPHILS % (AUTO) 68.4 % (40.0-77.0); PLATELET COUNT (AUTO) 431 K/uL (130-400); RED BLOOD CELL COUNT(AUTO) 3.35 MIL/uL (4.50-6.20); WHITE BLOOD COUNT (AUTO) 9.8 K/uL (4.8-10.8)
[2019-11-13 07:19] LABS: ALBUMIN 1.9 g/dL (3.5-5.0); CREATININE 0.7 mg/dL (0.5-1.5); POTASSIUM 3.8 mmol/L (3.5-5.1); TOTAL PROTEIN, SERUM 6.3 g/dL (6.0-8.3)
[2019-11-13 07:30] VITALS: BP 128/83
[2019-11-13] MEDS: RANITIDINE HCL 15 MG/1 ML PO SCH ×2 (09:17→21:48)
[2019-11-13] MEDS: PAROXETINE HCL 20 MG TABLET PO SCH (09:17)
[2019-11-13] MEDS: LISINOPRIL 10 MG TABLET PO SCH (09:18)
[2019-11-13 09:33] LABS: BILIRUBIN,TOTAL 0.3 mg/dL (0.2-1.0)
[2019-11-13 11:00] VITALS: BP 148/91
[2019-11-13] MEDS: FLUCONAZOLE 400 MG/NS 200 ML 200 ML IV SCH (14:05)
[2019-11-13 16:00] VITALS: BP 139/96
[2019-11-13 20:36] VITALS: BP 129/83
[2019-11-13] MEDS: LEVOFLOXACIN 750 MG/D5W 150 ML 150 ML IV SCH (21:48)
[2019-11-14] VITALS: BP 125/80
[2019-11-14] MEDS: HYDROMORPHONE 1 MG/1 ML AMP IVP PRN ×4 (00:46→22:14)
[2019-11-14] MEDS: ONDANSETRON HCL 4 MG/2 ML VIAL IVP PRN ×2 (00:46→06:37)
[2019-11-14 03:28] VITALS: BP 127/80
[2019-11-14 04:50] LABS: BASOPHILS % (AUTO) 0.3 % (0.0-5.0); HEMATOCRIT 32.8 % (42-54); LYMPHOCYTES % (AUTO) 15.6 % (21.0-51.0); MEAN CORPUSCULAR HEMOGLOBIN 30.3 pg (27.0-33.0); MEAN CORPUSCULAR HGB CONC 31.4 g/dL (32.0-36.0); MEAN CORPUSCULAR VOLUME 96.5 fL (79-99); MONOCYTES % (AUTO) 10.3 % (3.0-13.0); NEUTROPHILS % (AUTO) 68.2 % (40.0-77.0); PLATELET COUNT (AUTO) 416 K/uL (130-400); RED CELL DISTRIBUTION WIDTH 14.2 % (11.0-15.5); WHITE BLOOD COUNT (AUTO) 11.7 K/uL (4.8-10.8)
[2019-11-14 05:10] LABS: CREATININE 0.9 mg/dL (0.5-1.5); POTASSIUM 4.1 mmol/L (3.5-5.1)
[2019-11-14 07:55] VITALS: BP 123/76
[2019-11-14] MEDS: LISINOPRIL 10 MG TABLET PO SCH (09:19)
[2019-11-14] MEDS: RANITIDINE HCL 15 MG/1 ML PO SCH ×2 (09:19→20:35)
[2019-11-14] MEDS: PAROXETINE HCL 20 MG TABLET PO SCH (09:19)
[2019-11-14] MEDS: FLUCONAZOLE 400 MG/NS 200 ML 200 ML IV SCH (12:57)
[2019-11-14] MEDS: HYDROCODONE/ACETAMINOPHEN 5/325 MG TAB PO PRN ×2 (13:06→20:36)
[2019-11-14] MEDS ORDERED: HYDROMORPHONE HCL 0.5 MG/0.5 ML ML ONE (14:37)
[2019-11-14 16:45] VITALS: BP 118/79
[2019-11-14 20:00] VITALS: BP 136/98
[2019-11-14 23:36] VITALS: BP 122/78
[2019-11-15 04:00] VITALS: BP 128/83
[2019-11-15 05:17] LABS: BASOPHILS % (AUTO) 0.3 % (0.0-5.0); HEMATOCRIT 33.9 % (42-54); LYMPHOCYTES % (AUTO) 16.4 % (21.0-51.0); MEAN CORPUSCULAR HEMOGLOBIN 31.1 pg (27.0-33.0); MEAN CORPUSCULAR HGB CONC 32.2 g/dL (32.0-36.0); MEAN CORPUSCULAR VOLUME 96.6 fL (79-99); MONOCYTES % (AUTO) 11.8 % (3.0-13.0); PLATELET COUNT (AUTO) 436 K/uL (130-400); RED BLOOD CELL COUNT(AUTO) 3.51 MIL/uL (4.50-6.20); RED CELL DISTRIBUTION WIDTH 14.3 % (11.0-15.5); WHITE BLOOD COUNT (AUTO) 12.6 K/uL (4.8-10.8)
[2019-11-15] MEDS: HYDROCODONE/ACETAMINOPHEN 5/325 MG TAB PO PRN ×3 (05:36→18:33)
[2019-11-15 05:38] LABS: ALBUMIN 2.2 g/dL (3.5-5.0); BILIRUBIN,DIRECT 0.1 mg/dL (0.0-0.3); BILIRUBIN,TOTAL 0.2 mg/dL (0.2-1.0); CREATININE 0.8 mg/dL (0.5-1.5); CRP QUANTITATIVE 99.2 mg/L (0.00-9.0); MAGNESIUM 1.8 mg/dL (1.80-2.40); PHOSPHORUS 4.3 mg/dL (2.5-4.9); TOTAL PROTEIN, SERUM 6.5 g/dL (6.0-8.3)
[2019-11-15] MEDS: HYDROMORPHONE 1 MG/1 ML AMP IVP PRN ×3 (06:46→19:56)
[2019-11-15 08:12] VITALS: BP 139/87
[2019-11-15] MEDS: LISINOPRIL 10 MG TABLET PO SCH (09:40)
[2019-11-15] MEDS: RANITIDINE HCL 15 MG/1 ML PO SCH ×3 (09:40→19:59)
[2019-11-15] MEDS: PAROXETINE HCL 20 MG TABLET PO SCH (09:40)
[2019-11-15 11:24] VITALS: BP 162/104
[2019-11-15] MEDS: ONDANSETRON HCL 4 MG/2 ML VIAL IVP PRN (11:35)
[2019-11-15] MEDS: FLUCONAZOLE 400 MG/NS 200 ML 200 ML IV SCH (13:19)
[2019-11-15 16:07] VITALS: BP 148/99
[2019-11-15] MEDS ORDERED: IOHEXOL-350 75 ML VIAL IV ONE (17:03)
[2019-11-15 20:53] VITALS: BP 147/101
--- NOTE | 2019-11-15 22:15 | NUR ---
PATIENT AMBULATED X2 NURSES AMBULATED PATIENT WITH A PCP FOLLOWING CLOSE BEHIND WITH A WHEELCHAIR. IV POLE WITH IV PUMP AND FEEDING PUMP AT PT SIDE DURING WALK, PULLED BY NURSE. NEPHROSTOMY BAG CARRIED BY PATIENT. NON-SKID SOCKS ON. PATIENT STOPPED X1 FOR 2 MINS, SAT IN WC TO REST. AMBULATED TWICE AROUND 4TH FLOOR UNIT. RETURNED TO PT'S ROOM. NO SOB NOTED, NO DISTRESS. SLIGHT DISCOMFORT, NO PAIN MEDS REQUESTED AT THIS TIME. PT RETURNED TO BED. BED LOCKED IN LOWEST POSITION. CALL LIGHT WITHIN REACH. WILL CONTINUE TO CLOSELY MONITOR PT.
[2019-11-16 00:34] VITALS: BP 131/89
[2019-11-16] MEDS: HYDROCODONE/ACETAMINOPHEN 5/325 MG TAB PO PRN (00:41)
--- NOTE | 2019-11-16 01:05 | NUR ---
FEEDING FLUSHED DUBHOFF WITH 20 ML H2O. INCREASED FEED BY 2ML. CURRENT RATE IS NOW AT 42ML/HR. PT ASHLEY WELL. GOAL RATE IS 45 ML/HR. WILL INCREASE TOLERATED. WILL CONTINUE TO MONITOR AND ADJUST ACCORDINGLY.
[2019-11-16] MEDS: HYDROMORPHONE 1 MG/1 ML AMP IVP PRN ×4 (02:47→23:52)
[2019-11-16 04:19] VITALS: BP 127/71
--- NOTE | 2019-11-16 05:45 | NUR ---
DUBHOFF PULLED PT SAID HE WAS ASLEEP AND ACCIDENTLY PULLED ON THE DUBHOFF. I PAGED ONCMAGO. AJ CALLED BACK ORDERED FOR AN XRAY TO BE DONE TO VERIFY PLACEMENT. PLACEMENT REPORTED TO BE IN THE MID ESOPHAGUS REGION. PAGED ONCMAGO BACK TO REPORT THE PLACEMENT. EDDIE RETURNED PAGE. HE SAID TO PLACE ORDER FOR IR TO REPOSITION DUBHOFF. ORDER PLACED IN [facility]. PT MADE AWARE OF PROCEDURE.
[2019-11-16 06:22] LABS: BASOPHILS % (AUTO) 0.2 % (0.0-5.0); EOSINOPHILS % (AUTO) 3.6 % (0.0-8.0); HEMATOCRIT 36.4 % (42-54); LYMPHOCYTES % (AUTO) 16.2 % (21.0-51.0); MEAN CORPUSCULAR HEMOGLOBIN 30.1 pg (27.0-33.0); MEAN CORPUSCULAR HGB CONC 31.3 g/dL (32.0-36.0); MONOCYTES % (AUTO) 12.4 % (3.0-13.0); NEUTROPHILS % (AUTO) 65.3 % (40.0-77.0); PLATELET COUNT (AUTO) 451 K/uL (130-400); RED BLOOD CELL COUNT(AUTO) 3.79 MIL/uL (4.50-6.20); RED CELL DISTRIBUTION WIDTH 14.6 % (11.0-15.5); WHITE BLOOD COUNT (AUTO) 13.5 K/uL (4.8-10.8)
[2019-11-16 06:42] LABS: ALBUMIN 2.2 g/dL (3.5-5.0); CREATININE 0.8 mg/dL (0.5-1.5); CRP QUANTITATIVE 131.1 mg/L (0.00-9.0); MAGNESIUM 1.9 mg/dL (1.80-2.40); PHOSPHORUS 4.2 mg/dL (2.5-4.9)
[2019-11-16 07:38] LABS: ERYTHROCYTE SEDIMENTATION RATE 40 MM/HR (0-15)
[2019-11-16 08:00] VITALS: BP 129/87
[2019-11-16] MEDS: RANITIDINE HCL 15 MG/1 ML PO SCH ×2 (09:00→22:10)
[2019-11-16 12:00] VITALS: BP 128/84
--- NOTE | 2019-11-16 12:35 | NUR ---
RD FOLLOW UP NOTE Pt tolerating Tube Feedings, Jevity 1.5, Rate 40mls/hr at time of screen. Pt pending possible surgical evaluation due to development of pseudocyst. Monitored labs: Ferritin 2810, Crp 131.10. RD to continue to monitor. Please notify as additional nutrition concerns arise. Thank you. Addendum: 11/17/19 at [address] Amended: Links added.
[2019-11-16] MEDS: FLUCONAZOLE 400 MG/NS 200 ML 200 ML IV SCH (14:30)
[2019-11-16] MEDS: PAROXETINE HCL 20 MG TABLET PO SCH (14:34)
[2019-11-16] MEDS: ENOXAPARIN SODIUM 40 MG/0.4 ML SYRINGE SQ SCH (14:34)
[2019-11-16] MEDS: LISINOPRIL 10 MG TABLET PO SCH (14:34)
[2019-11-16 16:00] VITALS: BP 127/91
[2019-11-16 20:00] VITALS: BP 115/67
[2019-11-17] VITALS: BP 120/81
[2019-11-17 04:08] VITALS: BP 133/81
[2019-11-17] MEDS: HYDROMORPHONE 1 MG/1 ML AMP IVP PRN ×3 (06:05→20:01)
[2019-11-17 08:00] VITALS: BP 117/73
[2019-11-17] MEDS: LISINOPRIL 10 MG TABLET PO SCH (08:42)
[2019-11-17] MEDS: RANITIDINE HCL 15 MG/1 ML PO SCH ×2 (08:42→20:57)
[2019-11-17] MEDS: PAROXETINE HCL 20 MG TABLET PO SCH (08:42)
[2019-11-17] MEDS: ENOXAPARIN SODIUM 40 MG/0.4 ML SYRINGE SQ SCH (08:43)
--- NOTE | 2019-11-17 08:46 | NUR ---
LOVENOX NOT GIVEN PENDING IR PROCEDURE FOR PERCUTANEOUS DRAINAGE
[2019-11-17 11:51] VITALS: BP 128/79
--- NOTE | 2019-11-17 13:19 | NUR ---
PROCEDURE PATIENT RESCHEDULED FOR TOMORROW WITH DR Frederick ANTON. DR Maira MORGAN MADE AWARE.
[2019-11-17] MEDS: FLUCONAZOLE 400 MG/NS 200 ML 200 ML IV SCH (13:36)
--- NOTE | 2019-11-17 14:04 | NUR ---
PROCEDURE PANCREATIC DRAINAGE PROCEDURE CANCELED. IMAGES REVIEWED BY DR Frederick ANTON AND DR Lilian DUARTE AND BOTH AGREE THE PROCEDDURE WILL NOT BE PERFORMED. THERE IS A HIGH RISK OF INFECTION AND FISTULA FORMATION. Stacie KUNZ RN NOTIFIED OF PROCEDURE OUTCOME.
[2019-11-17 16:00] VITALS: BP 123/74
[2019-11-17 20:16] VITALS: BP 126/81
[2019-11-18 00:20] VITALS: BP 121/72
[2019-11-18 03:40] VITALS: BP 118/75
[2019-11-18 08:00] VITALS: BP 129/88
[2019-11-18 10:22] LABS: BASOPHILS % (AUTO) 0.2 % (0.0-5.0); HEMATOCRIT 35.7 % (42-54); LYMPHOCYTES % (AUTO) 17.7 % (21.0-51.0); MEAN CORPUSCULAR HEMOGLOBIN 30.2 pg (27.0-33.0); MEAN CORPUSCULAR HGB CONC 31.9 g/dL (32.0-36.0); MEAN CORPUSCULAR VOLUME 94.4 fL (79-99); MONOCYTES % (AUTO) 13.5 % (3.0-13.0); NEUTROPHILS % (AUTO) 64.8 % (40.0-77.0); PLATELET COUNT (AUTO) 477 K/uL (130-400); RED BLOOD CELL COUNT(AUTO) 3.78 MIL/uL (4.50-6.20); RED CELL DISTRIBUTION WIDTH 14.7 % (11.0-15.5); WHITE BLOOD COUNT (AUTO) 9.3 K/uL (4.8-10.8)
[2019-11-18] MEDS: RANITIDINE HCL 15 MG/1 ML PO SCH ×2 (10:25→21:00)
[2019-11-18] MEDS: PAROXETINE HCL 20 MG TABLET PO SCH (10:25)
[2019-11-18] MEDS: ENOXAPARIN SODIUM 40 MG/0.4 ML SYRINGE SQ SCH (10:25)
[2019-11-18] MEDS: LISINOPRIL 10 MG TABLET PO SCH (10:30)
[2019-11-18 10:56] LABS: ALBUMIN 2.2 g/dL (3.5-5.0); BILIRUBIN,TOTAL 0.3 mg/dL (0.2-1.0); CREATININE 0.8 mg/dL (0.5-1.5); POTASSIUM 4.5 mmol/L (3.5-5.1); TOTAL PROTEIN, SERUM 6.9 g/dL (6.0-8.3)
[2019-11-18 11:00] VITALS: BP 123/80
[2019-11-18 11:13] LABS: CRP QUANTITATIVE 152.7 mg/L (0.00-9.0)
[2019-11-18 11:24] LABS: ERYTHROCYTE SEDIMENTATION RATE 62 MM/HR (0-15)
--- NOTE | 2019-11-18 11:28 | NUR ---
as per dr. peters to call dr. conn first before proceeding to placement of picc line.
[2019-11-18 12:07] LABS: INR 1.01 (0.85-1.15); PROTHROMBIN TIME 10.9 SEC (9.6-11.6)
[2019-11-18] MEDS: FLUCONAZOLE 400 MG/NS 200 ML 200 ML IV SCH (13:15)
[2019-11-18] MEDS: HYDROMORPHONE 1 MG/1 ML AMP IVP PRN ×2 (14:38→17:51)
[2019-11-18 16:00] VITALS: BP 117/82
[2019-11-18] MEDS: HYDROCODONE/ACETAMINOPHEN 5/325 MG TAB PO PRN (22:56)
[2019-11-19] VITALS (7 sets, daily range): BP systolic 112–152; BP diastolic 62–76
[2019-11-19 05:13] LABS: BASOPHILS % (AUTO) 0.3 % (0.0-5.0); EOSINOPHILS % (AUTO) 3.8 % (0.0-8.0); HEMATOCRIT 32.1 % (42-54); LYMPHOCYTES % (AUTO) 19.4 % (21.0-51.0); MEAN CORPUSCULAR HEMOGLOBIN 30.8 pg (27.0-33.0); MEAN CORPUSCULAR HGB CONC 32.1 g/dL (32.0-36.0); MEAN CORPUSCULAR VOLUME 96.1 fL (79-99); MONOCYTES % (AUTO) 14.1 % (3.0-13.0); NEUTROPHILS % (AUTO) 61.7 % (40.0-77.0); PLATELET COUNT (AUTO) 436 K/uL (130-400); RED BLOOD CELL COUNT(AUTO) 3.34 MIL/uL (4.50-6.20); RED CELL DISTRIBUTION WIDTH 14.6 % (11.0-15.5); WHITE BLOOD COUNT (AUTO) 10.4 K/uL (4.8-10.8)
[2019-11-19 05:30] LABS: CREATININE 0.8 mg/dL (0.5-1.5); CRP QUANTITATIVE 87.5 mg/L (0.00-9.0); MAGNESIUM 1.9 mg/dL (1.80-2.40); PHOSPHORUS 4.8 mg/dL (2.5-4.9)
[2019-11-19 06:21] LABS: ERYTHROCYTE SEDIMENTATION RATE 50 MM/HR (0-15)
[2019-11-19] MEDS: HYDROCODONE/ACETAMINOPHEN 5/325 MG TAB PO PRN (07:00)
[2019-11-19] MEDS: ENOXAPARIN SODIUM 40 MG/0.4 ML SYRINGE SQ SCH (08:52)
[2019-11-19] MEDS: PAROXETINE HCL 20 MG TABLET PO SCH (08:52)
[2019-11-19] MEDS: LISINOPRIL 10 MG TABLET PO SCH (08:52)
[2019-11-19] MEDS: ONDANSETRON HCL 4 MG/2 ML VIAL IVP PRN (08:52)
[2019-11-19] MEDS: HYDROMORPHONE 1 MG/1 ML AMP IVP PRN ×3 (08:53→23:09)
[2019-11-19] MEDS: RANITIDINE HCL 15 MG/1 ML PO SCH ×2 (09:00→21:16)
[2019-11-19] MEDS: FLUCONAZOLE 200 MG/NS 100 ML 100 ML IV SCH (17:03)
[2019-11-19] MEDS: HYDROCODONE/ACETAMINOPHEN 7.5/325 MG TAB PO PRN (21:16)
[2019-11-20] VITALS (7 sets, daily range): BP systolic 106–131; BP diastolic 58–75
[2019-11-20] MEDS: HYDROMORPHONE 1 MG/1 ML AMP IVP PRN ×4 (05:49→21:42)
[2019-11-20] MEDS: RANITIDINE HCL 15 MG/1 ML PO SCH ×2 (09:00→21:00)
[2019-11-20] MEDS: PAROXETINE HCL 20 MG TABLET PO SCH (09:30)
[2019-11-20] MEDS: ENOXAPARIN SODIUM 40 MG/0.4 ML SYRINGE SQ SCH (09:30)
[2019-11-20] MEDS: LISINOPRIL 10 MG TABLET PO SCH (09:31)
[2019-11-20] MEDS: HYDROCODONE/ACETAMINOPHEN 7.5/325 MG TAB PO PRN (10:17)
[2019-11-20] MEDS: FLUCONAZOLE 200 MG/NS 100 ML 100 ML IV SCH (15:48)
[2019-11-21 04:00] VITALS: BP 117/79
[2019-11-21 07:44] VITALS: BP 121/71
[2019-11-21] MEDS: RANITIDINE HCL 15 MG/1 ML PO SCH ×2 (08:05→20:36)
[2019-11-21] MEDS: PAROXETINE HCL 20 MG TABLET PO SCH (08:06)
[2019-11-21] MEDS: LISINOPRIL 10 MG TABLET PO SCH (08:06)
[2019-11-21] MEDS: ENOXAPARIN SODIUM 40 MG/0.4 ML SYRINGE SQ SCH (08:07)
[2019-11-21] MEDS: HYDROMORPHONE 1 MG/1 ML AMP IVP PRN ×3 (08:09→21:38)
--- NOTE | 2019-11-21 10:02 | NUR ---
RD UPDATE NOTIFICATION FOR HIGH CONCENTRATION TUBE FEEDINGS RECEIVED. NEW TUBE FEEDING RECOMMENDATIONS: TWO CHEYANNE HN INITIATED AT 15MLS/HR FOR FIRST 5 HRS. INCREASE BY 5 ML EVERY 5 HOURS TO GOAL OF 35ML PER HOUR (1680KCAL/70GM PROTEIN/588ML FREE H2O) RECOMMEND FLUSH 200ML Q6HRS. TUBE FEEDING MODIFICATION REQUIRED SECONDARY TO VOLUME INTOLERANCE, NOT PREVIOUSLY MEETING NUTRITIONAL NEEDS. PT WITH DESIRABLE WT GAIN SINCE ADMIT. RD TO CONTINUE TO MONITOR FOR TUBE FEEDING TOLERANCE. PLEASE NOTIFY RD ADDITIONAL NUTRITION CONCERNS ARISE. THANK YOU.
[2019-11-21 11:07] VITALS: BP 119/74
[2019-11-21] MEDS: FLUCONAZOLE 200 MG/NS 100 ML 100 ML IV SCH (15:00)
[2019-11-21 17:21] VITALS: BP 107/80
[2019-11-21] MEDS: HYDROCODONE/ACETAMINOPHEN 7.5/325 MG TAB PO PRN (18:51)
[2019-11-21 19:45] VITALS: BP 119/76
[2019-11-21 23:54] VITALS: BP 127/85
[2019-11-22] MEDS: HYDROCODONE/ACETAMINOPHEN 7.5/325 MG TAB PO PRN ×3 (00:47→20:13)
[2019-11-22] MEDS: HYDROMORPHONE 1 MG/1 ML AMP IVP PRN ×4 (03:36→23:32)
--- NOTE | 2019-11-22 03:41 | NUR ---
tubefeeding pt tolerating tubefeeding of 2 shayne hn at 25 ml/hr now.hob up 45 degrees.
[2019-11-22 04:00] VITALS: BP 125/77
[2019-11-22 08:00] VITALS: BP 118/71
[2019-11-22] MEDS: RANITIDINE HCL 15 MG/1 ML PO SCH ×2 (09:00→20:13)
[2019-11-22] MEDS: LISINOPRIL 10 MG TABLET PO SCH (09:47)
[2019-11-22] MEDS: PAROXETINE HCL 20 MG TABLET PO SCH (09:47)
[2019-11-22] MEDS: ENOXAPARIN SODIUM 40 MG/0.4 ML SYRINGE SQ SCH (09:48)
[2019-11-22 11:46] VITALS: BP 119/62
[2019-11-22 16:00] VITALS: BP 118/60
--- NOTE | 2019-11-22 16:06 | NUR ---
DR. ELSIE CASTRO, MAKE RECOMMENDATIONS ORDER FOR PEJ- JEJUNOSTOMY FEEDING TUBE REC'D. DR ZIMMERMAN STATES PEJ TUBES ARE 'NOT IDEAL, THEY CAN CAUSE OBSTRUCTION, BUT FOR THIS PATIENT, WOULD BE A WAY FOR PATIENT TO GET FEEDING AT HOME 'UNTIL SURGERY IS DONE' OR UNTIL HE IMPROVES ORDER RECIEVED TO HAVE IR EVALUATE FOR PEJ PLACMENT Addendum: 11/22/19 at 1609 by ANNE RAMIREZ RN CM Amended: Links added.
[2019-11-22] MEDS: FLUCONAZOLE 200 MG/NS 100 ML 100 ML IV SCH (17:18)
[2019-11-22 20:00] VITALS: BP 111/70
--- NOTE | 2019-11-22 20:00 | NUR ---
PATIENT undecided Pt undecided re plan for PEJ,states he wants to think it over and talk to his parents about it.
--- NOTE | 2019-11-22 23:47 | NUR ---
TF Tubefeeding formula bag changed.
[2019-11-23 00:01] VITALS: BP 100/58
--- NOTE | 2019-11-23 01:48 | NUR ---
NPO Tubefeeding stopped for now,dubhoff cath flushed with 60 ml water as per pt request,He could not tolerate 200 ml at a time.Pt will decide in am if he wants Pej as per MD recommendation.
[2019-11-23] MEDS: HYDROCODONE/ACETAMINOPHEN 7.5/325 MG TAB PO PRN ×3 (03:14→16:03)
[2019-11-23 04:00] VITALS: BP 103/58
[2019-11-23 05:32] LABS: BASOPHILS % (AUTO) 0.3 % (0.0-5.0); EOSINOPHILS % (AUTO) 4.4 % (0.0-8.0); HEMATOCRIT 32.7 % (42-54); LYMPHOCYTES % (AUTO) 17.5 % (21.0-51.0); MEAN CORPUSCULAR HEMOGLOBIN 29.9 pg (27.0-33.0); MEAN CORPUSCULAR HGB CONC 32.1 g/dL (32.0-36.0); MEAN CORPUSCULAR VOLUME 93.2 fL (79-99); MONOCYTES % (AUTO) 11.9 % (3.0-13.0); NEUTROPHILS % (AUTO) 65.4 % (40.0-77.0); PLATELET COUNT (AUTO) 418 K/uL (130-400); RED BLOOD CELL COUNT(AUTO) 3.51 MIL/uL (4.50-6.20); RED CELL DISTRIBUTION WIDTH 14.4 % (11.0-15.5); WHITE BLOOD COUNT (AUTO) 10.7 K/uL (4.8-10.8)
[2019-11-23 05:47] LABS: INR 1.01 (0.85-1.15); PARTIAL THROMBOPLASTIN TIME 29.5 SEC (26.3-35.5); PROTHROMBIN TIME 10.9 SEC (9.6-11.6)
[2019-11-23 05:54] LABS: CREATININE 0.8 mg/dL (0.5-1.5); POTASSIUM 4.2 mmol/L (3.5-5.1)
[2019-11-23] MEDS: HYDROMORPHONE 1 MG/1 ML AMP IVP PRN ×3 (06:03→20:15)
[2019-11-23 07:36] VITALS: BP 98/59
[2019-11-23] MEDS: LISINOPRIL 10 MG TABLET PO SCH (09:00)
[2019-11-23] MEDS: RANITIDINE HCL 15 MG/1 ML PO SCH ×2 (10:28→21:00)
[2019-11-23] MEDS: PAROXETINE HCL 20 MG TABLET PO SCH (10:28)
[2019-11-23] MEDS: ENOXAPARIN SODIUM 40 MG/0.4 ML SYRINGE SQ SCH (10:30)
[2019-11-23 10:40] VITALS: BP 108/69
[2019-11-23 15:21] VITALS: BP 119/71
[2019-11-23] MEDS: FLUCONAZOLE 200 MG/NS 100 ML 100 ML IV SCH (16:00)
[2019-11-23 19:39] VITALS: BP 124/77
[2019-11-24] VITALS (7 sets, daily range): BP systolic 104–123; BP diastolic 42–71
[2019-11-24] MEDS: HYDROMORPHONE 1 MG/1 ML AMP IVP PRN ×3 (02:38→15:22)
[2019-11-24] MEDS: HYDROCODONE/ACETAMINOPHEN 7.5/325 MG TAB PO PRN ×2 (05:33→12:02)
[2019-11-24] MEDS: ENOXAPARIN SODIUM 40 MG/0.4 ML SYRINGE SQ SCH (08:55)
[2019-11-24] MEDS: RANITIDINE HCL 15 MG/1 ML PO SCH ×2 (08:55→09:00)
[2019-11-24] MEDS: PAROXETINE HCL 20 MG TABLET PO SCH (08:56)
[2019-11-24] MEDS: LISINOPRIL 10 MG TABLET PO SCH (08:56)
--- NOTE | 2019-11-24 09:09 | NUR ---
BRITTANEY Refused. States sometimes he gets nauseous with this mediation. States he will request it if he dfeels he needs. States he does not feel he needs it always.
[2019-11-24] MEDS ORDERED: SODIUM CHLORIDE 0.9% 250 ML IV ONE (13:12)
[2019-11-24] MEDS ORDERED: RANITIDINE HCL 15 MG/1 ML PO PRN (15:15)
--- NOTE | 2019-11-24 15:39 | NUR ---
RD FOLLOW UP NOTE PT TOLERATING TWO CHEYANNE HN @35MLS/HR AT TIME OF SCREEN. PT WITH DOBBHOFF AND REFUSAL OF PEG TUBE, PER EMR. PENDING CT SCAN PER EMR. MONITORING PT WT GAIN (CBW 50.8KG). RECOMMEND CONTINUE TUBE FEEDING RATE AT THIS TIME. RD TO CONTINUE TO MONITOR. Addendum: 11/24/19 at [address] Amended: Links added.
--- NOTE | 2019-11-24 16:18 | NUR ---
NEPHROSTOMY TUBE FLUSH Flushed with 10mL of NS by charge nurse.
[2019-11-24] MEDS ORDERED: HYDROMORPHONE HCL 0.5 MG/0.5 ML ML ONE (21:35)
[2019-11-25] MEDS ORDERED: HYDROMORPHONE HCL 0.5 MG/0.5 ML ML ONE ×4 (03:26→17:52)
[2019-11-25 04:00] VITALS: BP 99/64
[2019-11-25 08:00] VITALS: BP 120/76
[2019-11-25] MEDS ORDERED: IOHEXOL-350 75 ML VIAL IV ONE (09:52)
[2019-11-25 12:00] VITALS: BP 110/71
[2019-11-25] MEDS: LISINOPRIL 10 MG TABLET PO SCH (12:38)
[2019-11-25] MEDS: PAROXETINE HCL 20 MG TABLET PO SCH (12:38)
[2019-11-25 16:00] VITALS: BP 107/69
[2019-11-25] MEDS: ENOXAPARIN SODIUM 40 MG/0.4 ML SYRINGE SQ SCH (16:05)
[2019-11-25] MEDS: HYDROCODONE/ACETAMINOPHEN 7.5/325 MG TAB PO PRN ×2 (16:05→22:24)
[2019-11-25] MEDS: HYDROMORPHONE 1 MG/1 ML AMP IVP PRN (17:17)
[2019-11-25] MEDS ORDERED: HYDROMORPHONE HCL 0.5 MG/0.5 ML ML IVP SCH ×2 (18:00→20:00)
[2019-11-25 19:54] VITALS: BP 120/74
--- NOTE | 2019-11-25 20:17 | NUR ---
NOTE A FRANCISCO WASTE SPECIALIST HERE TO SEE PATIENT ABOUT CONTINUING ABDOMINAL PAIN. FEEDING IS ON HOLD, PATIENT MEDICATED WITH DILAUDID AT 1806 LAST PER DAY NURSE REPORT. HE WENT TO SEE PATIENT. INQUIRED ABOUT KUB HE GAVE ORDERS FOR, BUT HAS NOT BEEN DONE. ORDERS RECEIVED FOR CHANGING ORDER TO STAT SO IT WILL BE READ WELL. CONTACTED RADIOLOGY TO NOTIFY. PATIENT UPDATED AND MEDICATED WITH DILAUDID ONE TIME DOSE. AND WILL AWAIT KUB AND REPORT TO CALL RESULTS.
--- NOTE | 2019-11-25 22:08 | NUR ---
NOTE PAGED A FRANCISCO FISCAL ASSISTANT TO NOTIFY OF KUB RESULT REPORT. NO NEW ORDERS. SAID TO KEEP PATIENT ON CURRENT PAIN MEDICATION REGIMEN, KEEP HOLDING TUBE FEEDING FOR NOW. NO IVF FOR NOW. INFORMED PATIENT OF THIS.
[2019-11-25] MEDS: HYDROMORPHONE HCL 0.5 MG/0.5 ML ML IVP PRN (23:15)
[2019-11-25 23:58] VITALS: BP 124/77
[2019-11-26 04:00] VITALS: BP 103/73
[2019-11-26] MEDS: ONDANSETRON HCL 4 MG/2 ML VIAL IVP PRN ×4 (04:09→22:25)
--- NOTE | 2019-11-26 04:09 | NUR ---
NOTE PATIENT REPORTS HE DOHERTY NAUSEA AND DRY HEAVES. NO EMESIS. NOTED UPON VITAL SIGNS CHECK THAT HR 130'S-140'S. PATIENT REPORTS HE JUST CAME FROM BATHROOM. TOLD HIM I WILL COME BACK IN A FEW MINUTES TO RECHECK AND MEDICATED WITH ZOFRAN.
--- NOTE | 2019-11-26 04:29 | NUR ---
NOTE CHECKED ON PATIENT REPORTS NAUSEA IS DECREASING. APICAL PULSE CHECKED 134. PATIENT DENIES ANY CHEST PAINS OR OTHER DISCOMFORTS ASIDE FROM ABDOMINAL PAIN HE HAS BEEN HAVING. ASKING IF HE CAN HAVE THE PAIN MEDICATION, BUT NOT PILL DUE TO NAUSEA. EXPLAINED THAT I WILL CALL HOSPITALIST TO ASK AND REPORT ON HR. PAGED AND SPOKE WITH A FRANCISCO VERIFICATION ENGINEER. EXPLAINED ABOVE WELL MEDICATING WITH ZOFRAN. INSTRUCTED TO OK TO GIVE DILAUDID DOSE NOW AND RECHECK PULSE ONCE PATIENT IS MORE COMFORTABLE. NOTIFIED PATIENT OF NEW ORDERS.
[2019-11-26] MEDS: HYDROMORPHONE HCL 0.5 MG/0.5 ML ML IVP PRN ×4 (04:40→22:25)
--- NOTE | 2019-11-26 05:32 | NUR ---
NOTE RECHECKED PULSE AFTER DILAUDID MEDICATION. APICAL PULSE 122. CONTACTED Darcy SINGH NP AND NOTIFIED. ORDERS RECEIVED TO DO EKG AND AFTER MEDICATE WITH ONE TIME DOSE OF METOPROLOL 5 MG IV. UPDATED PATIENT ON ORDERS.
[2019-11-26 06:33] LABS: BASOPHILS % (AUTO) 0.2 % (0.0-5.0); EOSINOPHILS % (AUTO) 0.2 % (0.0-8.0); HEMATOCRIT 37.6 % (42-54); LYMPHOCYTES % (AUTO) 9.7 % (21.0-51.0); MEAN CORPUSCULAR HGB CONC 32.4 g/dL (32.0-36.0); MEAN CORPUSCULAR VOLUME 92.6 fL (79-99); MONOCYTES % (AUTO) 10.1 % (3.0-13.0); PLATELET COUNT (AUTO) 495 K/uL (130-400); RED BLOOD CELL COUNT(AUTO) 4.06 MIL/uL (4.50-6.20); RED CELL DISTRIBUTION WIDTH 14.5 % (11.0-15.5); WHITE BLOOD COUNT (AUTO) 13.3 K/uL (4.8-10.8)
[2019-11-26] MEDS: HYDROCODONE/ACETAMINOPHEN 7.5/325 MG TAB PO PRN ×2 (06:33→21:54)
[2019-11-26] MEDS ORDERED: METOPROLOL TARTRATE 1 MG/ML 5ML VIAL IV SCH (06:57)
[2019-11-26 07:31] LABS: CREATININE 1.2 mg/dL (0.5-1.5); POTASSIUM 5.3 mmol/L (3.5-5.1)
[2019-11-26 08:00] VITALS: BP 105/60
[2019-11-26] MEDS ORDERED: SODIUM CHLORIDE 0.9% 1000ML 1,000 ML IV SCH (08:15)
[2019-11-26] MEDS: PAROXETINE HCL 20 MG TABLET PO SCH (10:57)
[2019-11-26] MEDS: ENOXAPARIN SODIUM 40 MG/0.4 ML SYRINGE SQ SCH (10:59)
[2019-11-26 11:42] VITALS: BP 95/60
[2019-11-26] MEDS: DEXTROSE 5 % AND 0.9 % NACL 1,000 ML IV SCH ×2 (13:11→19:25)
[2019-11-26 16:00] VITALS: BP 119/69
[2019-11-26 16:17] LABS: CREATININE 1.1 mg/dL (0.5-1.5); MAGNESIUM 1.9 mg/dL (1.80-2.40); POTASSIUM 4.7 mmol/L (3.5-5.1)
[2019-11-26 19:49] VITALS: BP 113/61
[2019-11-26 23:59] VITALS: BP 111/60
[2019-11-27] MEDS: ONDANSETRON HCL 4 MG/2 ML VIAL IVP PRN ×3 (03:18→20:23)
[2019-11-27] MEDS: HYDROMORPHONE HCL 0.5 MG/0.5 ML ML IVP PRN ×4 (03:19→20:23)
[2019-11-27 04:00] VITALS: BP 117/59
--- NOTE | 2019-11-27 04:11 | NUR ---
patient requests to for his jodie nakita to be flushed every 6 hours just 100 ml of water due to feeling of fullness when flushed.
[2019-11-27] MEDS: DEXTROSE 5 % AND 0.9 % NACL 1,000 ML IV SCH ×2 (06:18→18:24)
[2019-11-27] MEDS: HYDROCODONE/ACETAMINOPHEN 7.5/325 MG TAB PO PRN ×2 (06:18→13:29)
[2019-11-27 06:30] LABS: CREATININE 0.7 mg/dL (0.5-1.5); POTASSIUM 3.4 mmol/L (3.5-5.1)
[2019-11-27] MEDS: POTASSIUM CHLORIDE 10% ELIXIR 20 MEQ/15 ML UDCUP PO PRN ×2 (06:40→13:29)
[2019-11-27 07:30] VITALS: BP 109/55
[2019-11-27 11:00] VITALS: BP 102/63
[2019-11-27] MEDS: ENOXAPARIN SODIUM 40 MG/0.4 ML SYRINGE SQ SCH (13:30)
[2019-11-27] MEDS: MAGNESIUM 2GM PREMIX 50ML 50 ML IV SCH (15:06)
[2019-11-27 16:00] VITALS: BP 104/60
--- NOTE | 2019-11-27 18:47 | NUR ---
ONLY ABLE TO TOLERATE 100ML OF WATER PER NGT ,PER PATIENT REQUEST Addendum: 11/27/19 at 1848 by RACQUEL WHEATLEY RN RN Amended: Links added.
[2019-11-27 20:00] VITALS: BP 109/65
[2019-11-27 23:58] VITALS: BP 118/65
[2019-11-28] MEDS: HYDROMORPHONE HCL 0.5 MG/0.5 ML ML IVP PRN ×3 (02:36→17:29)
[2019-11-28] MEDS: DEXTROSE 5 % AND 0.9 % NACL 1,000 ML IV SCH ×2 (02:36→14:57)
[2019-11-28 04:01] VITALS: BP 118/65
[2019-11-28] MEDS: HYDROCODONE/ACETAMINOPHEN 7.5/325 MG TAB PO PRN ×3 (06:49→20:36)
[2019-11-28 06:51] LABS: BASOPHILS % (AUTO) 0.2 % (0.0-5.0); EOSINOPHILS % (AUTO) 2.3 % (0.0-8.0); HEMATOCRIT 30.2 % (42-54); LYMPHOCYTES % (AUTO) 15.5 % (21.0-51.0); MEAN CORPUSCULAR HEMOGLOBIN 29.3 pg (27.0-33.0); MEAN CORPUSCULAR HGB CONC 31.5 g/dL (32.0-36.0); MEAN CORPUSCULAR VOLUME 93.2 fL (79-99); MONOCYTES % (AUTO) 15.2 % (3.0-13.0); NEUTROPHILS % (AUTO) 66.1 % (40.0-77.0); PLATELET COUNT (AUTO) 404 K/uL (130-400); RED BLOOD CELL COUNT(AUTO) 3.24 MIL/uL (4.50-6.20); RED CELL DISTRIBUTION WIDTH 14.5 % (11.0-15.5); WHITE BLOOD COUNT (AUTO) 9.2 K/uL (4.8-10.8)
[2019-11-28 07:23] LABS: CREATININE 0.8 mg/dL (0.5-1.5); MAGNESIUM 1.5 mg/dL (1.80-2.40); POTASSIUM 3.7 mmol/L (3.5-5.1)
[2019-11-28 07:36] VITALS: BP 124/74
[2019-11-28] MEDS: ENOXAPARIN SODIUM 40 MG/0.4 ML SYRINGE SQ SCH (09:25)
[2019-11-28 10:50] VITALS: BP 118/65
--- NOTE | 2019-11-28 11:50 | NUR ---
RD FOLLOW UP TUBE FEEDING STOPPED THURSDAY OR THURSDAY PER PT. PENDING ORAL FEEDING TRIAL WITH CLEAR LIQUIDS PER MD NOTE AND RN. PT AGREES. NOTED, PT PREVIOUSLY DECLINED PEJ PLACEMENT, PER MD NOTE. IMPROVING PSEUDOCYST PER CT PER MD NOTE. PT CONTINUES WITH DILAUDID, VICODIN, LOVENOX, DXT/NACL 100MLS/HR MEDICATIONS. RD RECOMMEND ORAL FEEDING TRIAL ON CLEAR LIQUIDS. IF NOT TOLERATED, CONTINUE TUBE FEEDINGS OF TWO CHEYANNE HN @35MLS/HR, 200ML H2O FLUSHES Q6HRS TOLERATED. TUBE FEEDING PREVIOUSLY TOLERATED OF PREVIOUS FOLLOW UP. Addendum: 11/28/19 at [address] Amended: Links added.
--- NOTE | 2019-11-28 13:21 | NUR ---
CHART REVIEWED. DC PLAN CONTINUES TO BE HOME/LOCAL RECOVERY. PATIENT AND FAMILY HAVE DECLINED ANY TRANSFER OR SUGGESTION OF TRANSFER TO A HIGHER LEVEL OF CARE Addendum: 11/28/19 at 1323 by ANNE RAMIREZ RN CM Amended: Links added.
[2019-11-28 15:33] VITALS: BP 126/87
[2019-11-28 20:15] VITALS: BP 125/78
[2019-11-28 23:39] VITALS: BP 121/69
[2019-11-29] MEDS: HYDROMORPHONE HCL 0.5 MG/0.5 ML ML IVP PRN ×4 (00:07→20:14)
[2019-11-29] MEDS: DEXTROSE 5 % AND 0.9 % NACL 1,000 ML IV SCH ×2 (00:07→01:00)
[2019-11-29] MEDS: HYDROCODONE/ACETAMINOPHEN 7.5/325 MG TAB PO PRN (02:28)
[2019-11-29 03:31] VITALS: BP 116/65
[2019-11-29 07:17] VITALS: BP 115/70
[2019-11-29] MEDS: ENOXAPARIN SODIUM 40 MG/0.4 ML SYRINGE SQ SCH (07:54)
[2019-11-29 10:50] VITALS: BP 117/70
--- NOTE | 2019-11-29 13:13 | NUR ---
CHART REVIEWED, CM FAMILIAR WITH COURSE OF ILLNESS, INTERVENTIONS AND HISTORY, PATIENT AND FAMILY WAS OFFERED TRANSFER TO A HIGHER LEVEL OF CARE/TERTIARY CENTER BUT HAS DECLINED MORE THAN ONCE. MOM WANTED TO BE ABLE TO BE PRESENT TO ADOVATE FOR A VIGILANT PLAN OF CARE AND STATED THAT THE PATIENT COULD NOT GO [place] HIS [place]. MORE RECENTLY PATIENT WAS OFFERED PEJ TUBE IN ANTICIPATION OF EXTENDED 'VACATION' FOR PANCREAS. PATIENT COULD BE DISCHARGED HOME WITH RODRIGUEZ FEEDINGS. PATIENT DECLINED. CHART REVEALS INFINITESIMAL INCREMENTS OF IMPROVEMENT IN STATUS AND EXTENDED LENGTH OF STAY. STILL UNCERTAIN DISPOSITION. CM REMAINS READY TO HELP WITH DISCHARGE PLANS AND RESOURCES WHEN MEDICALLY CLEAR. Addendum: 11/29/19 at 1321 by ANNE RAMIREZ RN CM Amended: Links added.
--- NOTE | 2019-11-29 14:38 | NUR ---
RD UPDATE Pt tolerating Clear Liquids consumed slowly, as per Pt. If drinks too fast, feelings of fullness. No GI distress, per Pt. Recommend to continue Clears for 1-[address] to add Ensure Clear for additional energy and protein supplementation. RD to continue to monitor. Please notify as additional nutrition concerns arise. Thank you.
[2019-11-29 15:21] VITALS: BP 118/86
[2019-11-29 19:00] VITALS: BP 132/83
[2019-11-29 23:00] VITALS: BP 118/73
[2019-11-30 03:00] VITALS: BP 119/72
[2019-11-30] MEDS: HYDROMORPHONE HCL 0.5 MG/0.5 ML ML IVP PRN ×4 (03:40→19:29)
[2019-11-30] MEDS: HYDROCODONE/ACETAMINOPHEN 7.5/325 MG TAB PO PRN ×3 (04:44→16:20)
[2019-11-30 08:00] VITALS: BP 126/82
[2019-11-30] MEDS: ENOXAPARIN SODIUM 40 MG/0.4 ML SYRINGE SQ SCH (09:36)
[2019-11-30 11:58] VITALS: BP 119/68
[2019-11-30] MEDS: DEXTROSE 5 % AND 0.9 % NACL 1,000 ML IV SCH ×3 (12:00→19:29)
[2019-11-30] MEDS: MAGNESIUM 2GM PREMIX 50ML 50 ML IV SCH (13:16)
--- NOTE | 2019-11-30 16:15 | NUR ---
PAIN pt c/o pain right abd area so soon for pain medication notified Maria Teresa JONES order given to give a vicodin PO early Addendum: 11/30/19 at 1640 by MACK RIBEIRO RN RN Amended: Links added.
[2019-11-30] MEDS ORDERED: HYDROCODONE/ACETAMINOPHEN 7.5/325 MG TAB PO ONE (16:45)
[2019-11-30 16:53] VITALS: BP 135/88
[2019-11-30 16:55] VITALS: BP 135/88
[2019-11-30 19:00] VITALS: BP 128/83
[2019-12-01] VITALS: BP 119/70
[2019-12-01] MEDS: HYDROMORPHONE HCL 0.5 MG/0.5 ML ML IVP PRN ×5 (01:05→23:05)
[2019-12-01 04:00] VITALS: BP 111/68
[2019-12-01 04:40] LABS: BASOPHILS % (AUTO) 0.1 % (0.0-5.0); EOSINOPHILS % (AUTO) 0.4 % (0.0-8.0); HEMATOCRIT 27.9 % (42-54); LYMPHOCYTES % (AUTO) 14.7 % (21.0-51.0); MEAN CORPUSCULAR HEMOGLOBIN 29.6 pg (27.0-33.0); MEAN CORPUSCULAR HGB CONC 31.9 g/dL (32.0-36.0); MEAN CORPUSCULAR VOLUME 92.7 fL (79-99); MONOCYTES % (AUTO) 13.3 % (3.0-13.0); PLATELET COUNT (AUTO) 364 K/uL (130-400); RED BLOOD CELL COUNT(AUTO) 3.01 MIL/uL (4.50-6.20); RED CELL DISTRIBUTION WIDTH 14.6 % (11.0-15.5); WHITE BLOOD COUNT (AUTO) 10.1 K/uL (4.8-10.8)
[2019-12-01 04:49] LABS: CREATININE 0.5 mg/dL (0.5-1.5); MAGNESIUM 1.5 mg/dL (1.80-2.40); POTASSIUM 3.2 mmol/L (3.5-5.1)
[2019-12-01] MEDS: POTASSIUM CHLORIDE 10% ELIXIR 20 MEQ/15 ML UDCUP PO PRN ×3 (05:21→13:30)
[2019-12-01] MEDS: MAGNESIUM 2GM PREMIX 50ML 50 ML IV SCH (05:22)
[2019-12-01] MEDS: DEXTROSE 5 % AND 0.9 % NACL 1,000 ML IV SCH ×2 (05:22→19:30)
[2019-12-01 07:47] VITALS: BP 111/72
[2019-12-01] MEDS: ENOXAPARIN SODIUM 40 MG/0.4 ML SYRINGE SQ SCH (10:12)
[2019-12-01 11:21] VITALS: BP 132/85
--- NOTE | 2019-12-01 14:27 | NUR ---
RD FOLLOW UP Tube Feeding and TPN discontinued. IV D5 in place. Pt reports pain when consuming Clear Liquids too quickly. Also pain with sugar added to tea. Pt with fear of eating due to pain. Pt reports no pain with consuming sips of Ensure Clear. Pt fear of resuming TF, would prefer TPN. Pt agreed to try sipping Clears first. Recommend small sips to consume Clear Liquids. 2oz cups to be included with meals. Recommend to resume Ensure Clear Recommend to add 30mL ProMod with meals. RD to continue to monitor. Addendum: 12/01/19 at [address] Amended: Links added.
[2019-12-01 16:00] VITALS: BP 122/71
[2019-12-01 19:00] VITALS: BP 121/62
[2019-12-01] MEDS: SIMETHICONE 80 MG TAB.CHEW PO PRN (19:30)
[2019-12-02] VITALS (7 sets, daily range): BP systolic 113–126; BP diastolic 67–79
[2019-12-02] MEDS: DEXTROSE 5 % AND 0.9 % NACL 1,000 ML IV SCH ×3 (00:49→15:00)
[2019-12-02] MEDS: HYDROMORPHONE HCL 0.5 MG/0.5 ML ML IVP PRN ×4 (03:02→20:48)
[2019-12-02 05:04] LABS: EOSINOPHILS % (AUTO) 1.2 % (0.0-8.0); HEMATOCRIT 21.8 % (42-54); LYMPHOCYTES % (AUTO) 14.6 % (21.0-51.0); MEAN CORPUSCULAR HEMOGLOBIN 30.3 pg (27.0-33.0); MEAN CORPUSCULAR HGB CONC 32.1 g/dL (32.0-36.0); MEAN CORPUSCULAR VOLUME 94.4 fL (79-99); MONOCYTES % (AUTO) 17.7 % (3.0-13.0); NEUTROPHILS % (AUTO) 65.9 % (40.0-77.0); PLATELET COUNT (AUTO) 298 K/uL (130-400); RED BLOOD CELL COUNT(AUTO) 2.31 MIL/uL (4.50-6.20); RED CELL DISTRIBUTION WIDTH 14.6 % (11.0-15.5); WHITE BLOOD COUNT (AUTO) 8.2 K/uL (4.8-10.8)
--- NOTE | 2019-12-02 05:15 | NUR ---
paged ti ga about patient's hemoglobin of 7 and hematocrit of 21.3. pending call back
[2019-12-02 05:17] LABS: CREATININE 0.5 mg/dL (0.5-1.5); MAGNESIUM 1.3 mg/dL (1.80-2.40); POTASSIUM 3.3 mmol/L (3.5-5.1)
[2019-12-02] MEDS: POTASSIUM CHLORIDE 20 MEQ ERTAB PO PRN ×2 (05:46→11:38)
[2019-12-02] MEDS: MAGNESIUM 2GM PREMIX 50ML 50 ML IV SCH (05:47)
--- NOTE | 2019-12-02 05:50 | NUR ---
paged ti ga for hemoglobin of 7.0. pending call back
--- NOTE | 2019-12-02 06:24 | NUR ---
texted doctor lorraine about patient's hemoglobin of 7.0 and hematocrit of 21.8 as well as his current condition and vitals. he ordered 1 unit of packed red blood cells.
[2019-12-02] MEDS: ENOXAPARIN SODIUM 40 MG/0.4 ML SYRINGE SQ SCH (08:31)
[2019-12-02 13:42] LABS: HEMATOCRIT 30.9 % (42-54)
--- NOTE | 2019-12-03 03:10 | NUR ---
PATIENT UPDATE Patient continues to have complaints about pain ,now more on the rt lower quadrant with a pain score of 10. No nausea nor vomiting, tolerating clear liquid diet. Was given a blood transfusion for 1 unit of blood by the previous shift, no untoward blood transfusion reactions noted. Looking depressed, dubhoff feeding tube intact, kept clamped. Left nephrostomy tube patent , irrigated with saline q shift. Cachectic looking, able to relax only after each prn dilaudid pain med. Continues with hydration with D5NS at 100 cc/hr via the PICC line, both ports patent. No visible signs of bleeding, still pending a stool for occult blood.
[2019-12-03 03:44] VITALS: BP 124/77
[2019-12-03] MEDS: DEXTROSE 5 % AND 0.9 % NACL 1,000 ML IV SCH ×3 (03:45→19:43)
[2019-12-03] MEDS: HYDROMORPHONE HCL 0.5 MG/0.5 ML ML IVP PRN ×2 (03:50→09:48)
[2019-12-03 08:00] VITALS: BP 124/79
[2019-12-03] MEDS: ENOXAPARIN SODIUM 40 MG/0.4 ML SYRINGE SQ SCH (08:53)
[2019-12-03 09:38] LABS: MAGNESIUM 1.5 mg/dL (1.80-2.40)
[2019-12-03] MEDS: MAGNESIUM 2GM PREMIX 50ML 50 ML IV SCH (09:48)
[2019-12-03 11:10] VITALS: BP 126/71
[2019-12-03] MEDS: HYDROCODONE/ACETAMINOPHEN 7.5/325 MG TAB PO PRN (14:10)
[2019-12-03 16:00] VITALS: BP 131/81
[2019-12-03 19:03] VITALS: BP 123/70
[2019-12-03] MEDS ORDERED: HYDROMORPHONE 1 MG/1 ML AMP ONE (22:26)
[2019-12-03] MEDS: HYDROMORPHONE 1 MG/1 ML AMP IVP PRN (22:28)
[2019-12-03 23:10] VITALS: BP 120/68
[2019-12-04 03:45] VITALS: BP 118/69
[2019-12-04] MEDS: DEXTROSE 5 % AND 0.9 % NACL 1,000 ML IV SCH ×2 (04:21→23:43)
[2019-12-04 04:23] LABS: CREATININE 0.5 mg/dL (0.5-1.5); MAGNESIUM 1.6 mg/dL (1.80-2.40); POTASSIUM 3.5 mmol/L (3.5-5.1)
[2019-12-04] MEDS: MAGNESIUM 2GM PREMIX 50ML 50 ML IV SCH (04:32)
[2019-12-04] MEDS: POTASSIUM CHLORIDE 20MEQ/100ML 100 ML IV PRN (04:40)
[2019-12-04] MEDS: HYDROMORPHONE 1 MG/1 ML AMP IVP PRN ×5 (04:52→23:52)
[2019-12-04 08:04] VITALS: BP 119/72
[2019-12-04] MEDS: ENOXAPARIN SODIUM 40 MG/0.4 ML SYRINGE SQ SCH (08:36)
[2019-12-04 11:44] VITALS: BP 115/73
[2019-12-04 16:50] VITALS: BP 114/76
[2019-12-04 17:46] LABS: HEMATOCRIT 31.3 % (42-54); MEAN CORPUSCULAR HGB CONC 31.9 g/dL (32.0-36.0); MEAN CORPUSCULAR VOLUME 90.7 fL (79-99); PLATELET COUNT (AUTO) 370 K/uL (130-400); RED BLOOD CELL COUNT(AUTO) 3.45 MIL/uL (4.50-6.20); RED CELL DISTRIBUTION WIDTH 14.5 % (11.0-15.5); WHITE BLOOD COUNT (AUTO) 8.9 K/uL (4.8-10.8)
[2019-12-04 17:57] LABS: CREATININE 0.6 mg/dL (0.5-1.5); POTASSIUM 3.3 mmol/L (3.5-5.1)
[2019-12-04 18:04] LABS: BAND NEUTROPHILS % (MANUAL) 2 % (0-2); EOSINOPHILS % (MANUAL) 1 % (1-6); LYMPHOCYTES % (MANUAL) 16 % (22-44); MAN.DIFF COMMENT-IMPRESSION MANUAL DIFFERENTIAL; MONOCYTES % (MANUAL) 4 % (2-9); REACTIVE LYMPHOCYTES 4 % (0-0); SEGMENTED NEUTROPHILS % 73 % (40-70)
[2019-12-04 18:06] LABS: PLATELET MORPHOLOGY COMMENT PLT CLUMPS PRESENT
[2019-12-04 19:06] VITALS: BP 118/67
[2019-12-04 23:10] VITALS: BP 115/73
[2019-12-05 03:36] VITALS: BP 114/65
[2019-12-05] MEDS: HYDROMORPHONE 1 MG/1 ML AMP IVP PRN ×3 (05:32→17:34)
[2019-12-05] MEDS: DEXTROSE 5 % AND 0.9 % NACL 1,000 ML IV SCH ×3 (05:45→20:35)
[2019-12-05 08:24] VITALS: BP 112/76
[2019-12-05 09:59] LABS: HEMATOCRIT 30.1 % (42-54); MEAN CORPUSCULAR HEMOGLOBIN 29.4 pg (27.0-33.0); MEAN CORPUSCULAR HGB CONC 31.9 g/dL (32.0-36.0); PLATELET COUNT (AUTO) 338 K/uL (130-400); RED BLOOD CELL COUNT(AUTO) 3.27 MIL/uL (4.50-6.20); RED CELL DISTRIBUTION WIDTH 14.6 % (11.0-15.5); WHITE BLOOD COUNT (AUTO) 8.8 K/uL (4.8-10.8)
[2019-12-05 10:20] LABS: CREATININE 0.6 mg/dL (0.5-1.5); MAGNESIUM 1.6 mg/dL (1.80-2.40); POTASSIUM 3.4 mmol/L (3.5-5.1)
[2019-12-05] MEDS: PANTOPRAZOLE 40 MG/VIAL IVP SCH ×2 (11:13→20:35)
[2019-12-05 12:30] VITALS: BP 130/74
--- NOTE | 2019-12-05 15:16 | NUR ---
RD FOLLOW UP PT REPORTS DRINKING 50% ENSURE CLEAR, JELLO, BROTH, AND WATER IN SIPS. PT EXPERIENCES PAIN WITH EXTREME TEMPERATURES (HOT/COLD), ROOM TEMPERATURE LIQUIDS RECOMMENDED. PT FEELS FULLNESS WITH SMALL CONTENT SO CONSUMES LIQUIDS OVER TIME. PT REPORTS PENDING F/U CT SCAN AND GI EVAL. RD TO FOLLOW UP. Addendum: 12/05/19 at [address] Amended: Links added.
[2019-12-05 17:23] VITALS: BP 127/83
[2019-12-05 19:30] VITALS: BP 125/82
[2019-12-05] MEDS: HYDROCODONE/ACETAMINOPHEN 7.5/325 MG TAB PO PRN (20:36)
[2019-12-05] MEDS: MAGNESIUM 2GM PREMIX 50ML 50 ML IV SCH (20:53)
[2019-12-05] MEDS: POTASSIUM CHLORIDE 20 MEQ ERTAB PO PRN ×2 (20:54→22:41)
[2019-12-05 23:22] VITALS: BP 127/76
[2019-12-06] MEDS: HYDROMORPHONE 1 MG/1 ML AMP IVP PRN ×4 (00:02→20:45)
[2019-12-06 03:20] VITALS: BP 124/79
[2019-12-06 03:35] VITALS: BP 124/79
[2019-12-06] MEDS: HYDROCODONE/ACETAMINOPHEN 7.5/325 MG TAB PO PRN ×2 (04:01→18:34)
[2019-12-06 04:45] LABS: BASOPHILS % (AUTO) 0.1 % (0.0-5.0); EOSINOPHILS % (AUTO) 2.6 % (0.0-8.0); HEMATOCRIT 24.2 % (42-54); LYMPHOCYTES % (AUTO) 17.9 % (21.0-51.0); MEAN CORPUSCULAR HEMOGLOBIN 29.1 pg (27.0-33.0); MEAN CORPUSCULAR HGB CONC 31.4 g/dL (32.0-36.0); MEAN CORPUSCULAR VOLUME 92.7 fL (79-99); MONOCYTES % (AUTO) 15.6 % (3.0-13.0); NEUTROPHILS % (AUTO) 63.2 % (40.0-77.0); PLATELET COUNT (AUTO) 266 K/uL (130-400); RED BLOOD CELL COUNT(AUTO) 2.61 MIL/uL (4.50-6.20); RED CELL DISTRIBUTION WIDTH 14.6 % (11.0-15.5); WHITE BLOOD COUNT (AUTO) 7.3 K/uL (4.8-10.8)
[2019-12-06 04:54] LABS: MAGNESIUM 2.3 mg/dL (1.80-2.40); POTASSIUM 4.3 mmol/L (3.5-5.1)
--- NOTE | 2019-12-06 08:04 | NUR ---
NEPHROSTOMY TUBE FLUSHED ORDERED. FLUSHED LEFT NEPHROSTOMY TUBE, PT ASHLEY WELL.
[2019-12-06 08:16] VITALS: BP 112/71
[2019-12-06] MEDS: PANTOPRAZOLE 40 MG/VIAL IVP SCH ×2 (09:32→20:44)
[2019-12-06 11:43] LABS: HEMATOCRIT 27.3 % (42-54)
[2019-12-06 12:11] VITALS: BP 118/77
[2019-12-06 16:10] VITALS: BP 116/77
[2019-12-06] MEDS ORDERED: IOHEXOL-350 75 ML VIAL IV ONE (16:29)
[2019-12-06] MEDS: DEXTROSE 5 % AND 0.9 % NACL 1,000 ML IV SCH ×2 (18:35→20:45)
--- NOTE | 2019-12-06 20:45 | NUR ---
MEDS SHIFT ASSESSMENT DONE, PLEASE REFER TO CHART. PT CLAIMS OF ABDOMINAL PAINS. DUE MEDS ADMINISTERED, DILAUDID IV GIVEN FOR PAINS. KEPT RESTED AND COMFORTABLE IN BED. CALL LIGHT WITHIN REACH. WILL RE-ASSESS PT. Addendum: 12/06/19 at 2352 by BRAD CHIRINOS RN RN Amended: Links added.
[2019-12-06 20:47] VITALS: BP 118/73
[2019-12-07] VITALS (7 sets, daily range): BP systolic 113–125; BP diastolic 68–77
[2019-12-07] MEDS: HYDROCODONE/ACETAMINOPHEN 7.5/325 MG TAB PO PRN ×3 (02:41→16:15)
--- NOTE | 2019-12-07 02:41 | NUR ---
PAIN PT CALLS FOR PAIN MEDICATION. CLAIMS OF ABDOMINAL PAINS. MEDICATED WITH VICODIN PO. KEPT COMFORTABLE IN BED WITH HOB ELEVATED. WILL RE-ASSESS PT.
[2019-12-07] MEDS: HYDROMORPHONE 1 MG/1 ML AMP IVP PRN ×4 (04:22→23:48)
[2019-12-07] MEDS: DEXTROSE 5 % AND 0.9 % NACL 1,000 ML IV SCH ×3 (04:22→14:04)
--- NOTE | 2019-12-07 05:22 | NUR ---
RE-ASSESS PT RESTING WELL, FAIRLY ASLEEP. NO DISTRESS NOTED. KEPT UNDISTURBED FOR NOW. FOR MORE CARE.
[2019-12-07] MEDS: PANTOPRAZOLE 40 MG/VIAL IVP SCH ×2 (08:45→21:57)
--- NOTE | 2019-12-07 12:07 | NUR ---
RD UPDATE PT WITH CLEAR LIQUID DIET X 9 DAYS. PT REPORTS FEELINGS OF FULLNESS QUICKLY AND THEREFORE CONSUMING LIQUIDS IN SIPS. PT PENDING GI EVALUATION, PER RN. RECOMMEND TO RE-INITIATE ALTERED MEANS NUTRITION, WHEN MEDICALLY FEASIBLE. RD TO FOLLOW UP WITH POC.
[2019-12-07 12:17] LABS: ALBUMIN 1.5 g/dL (3.5-5.0); BILIRUBIN,DIRECT 0.1 mg/dL (0.0-0.3); BILIRUBIN,TOTAL 0.4 mg/dL (0.2-1.0); TOTAL PROTEIN, SERUM 4.9 g/dL (6.0-8.3)
--- NOTE | 2019-12-07 14:15 | NUR ---
DR. LEEANNE MORAN HERE TO SEE PATIENT. STATES HE DOES NOT RECOMMEND FURTHER ANTIBIOTIC TREATMENT.
--- NOTE | 2019-12-07 16:15 | NUR ---
DR. CASEY BRADEN MD REGARDING DR. BECKER ORDER TO F/U ON NEPHROSTOMY TUBE PLAN
--- NOTE | 2019-12-07 16:30 | NUR ---
DR. PEÑA'S OFFICE SPOKE TO MANFRED OF DR. PEÑA'S OFFICE. EXPLAINED THAT HOSPITALIST WANTS TO KNOW DR. PEÑA'S PLAN FOR NEPHROSTOMY TUBE.
[2019-12-08 03:59] VITALS: BP 123/74
[2019-12-08] MEDS: DEXTROSE 5 % AND 0.9 % NACL 1,000 ML IV SCH ×2 (04:00→15:22)
[2019-12-08] MEDS: HYDROCODONE/ACETAMINOPHEN 7.5/325 MG TAB PO PRN ×2 (04:41→11:24)
[2019-12-08 05:34] LABS: BASOPHILS % (AUTO) 0.2 % (0.0-5.0); EOSINOPHILS % (AUTO) 3.9 % (0.0-8.0); HEMATOCRIT 27.1 % (42-54); LYMPHOCYTES % (AUTO) 19.5 % (21.0-51.0); MEAN CORPUSCULAR HEMOGLOBIN 28.6 pg (27.0-33.0); MEAN CORPUSCULAR VOLUME 92.2 fL (79-99); MONOCYTES % (AUTO) 13.1 % (3.0-13.0); PLATELET COUNT (AUTO) 282 K/uL (130-400); RED BLOOD CELL COUNT(AUTO) 2.94 MIL/uL (4.50-6.20); RED CELL DISTRIBUTION WIDTH 14.3 % (11.0-15.5); WHITE BLOOD COUNT (AUTO) 6.1 K/uL (4.8-10.8)
[2019-12-08 05:47] LABS: CREATININE 0.5 mg/dL (0.5-1.5); MAGNESIUM 1.3 mg/dL (1.80-2.40); POTASSIUM 3.3 mmol/L (3.5-5.1)
[2019-12-08] MEDS: HYDROMORPHONE 1 MG/1 ML AMP IVP PRN (06:47)
[2019-12-08] MEDS: MAGNESIUM 2GM PREMIX 50ML 50 ML IV SCH (06:51)
[2019-12-08 07:56] VITALS: BP 104/59
[2019-12-08] MEDS: PANTOPRAZOLE 40 MG/VIAL IVP SCH ×2 (09:37→20:56)
[2019-12-08 11:24] VITALS: BP 111/69
[2019-12-08] MEDS: POTASSIUM CHLORIDE 20MEQ/100ML 100 ML IV PRN (12:29)
--- NOTE | 2019-12-08 12:38 | NUR ---
RD UPDATE Pt tolerating Clear Liquid Diet. Trial with Soft foods at lunch, per RN. Pt motivated to advance diet. Tube Feeding protocol provided in case of intolerance. RD to continue to monitor.
[2019-12-08] MEDS: HYDROMORPHONE HCL 0.5 MG/0.5 ML ML IVP PRN ×2 (13:47→20:56)
[2019-12-08 16:51] VITALS: BP 104/67
[2019-12-08 20:00] VITALS: BP 113/70
[2019-12-08 23:52] VITALS: BP 107/69
[2019-12-09] MEDS: DEXTROSE 5 % AND 0.9 % NACL 1,000 ML IV SCH ×3 (03:03→19:45)
[2019-12-09] MEDS: HYDROMORPHONE HCL 0.5 MG/0.5 ML ML IVP PRN ×4 (03:27→23:51)
[2019-12-09 04:00] VITALS: BP 119/76
[2019-12-09 07:14] LABS: CREATININE 0.6 mg/dL (0.5-1.5); MAGNESIUM 1.6 mg/dL (1.80-2.40); PHOSPHORUS 3.4 mg/dL (2.5-4.9); POTASSIUM 3.9 mmol/L (3.5-5.1)
[2019-12-09 08:30] VITALS: BP 129/86
[2019-12-09] MEDS: PANTOPRAZOLE 40 MG/VIAL IVP SCH ×2 (11:20→21:36)
[2019-12-09] MEDS: MAGNESIUM 2GM PREMIX 50ML 50 ML IV SCH (11:21)
[2019-12-09 11:30] VITALS: BP 130/81
[2019-12-09 16:00] VITALS: BP 128/73
[2019-12-09 20:00] VITALS: BP 121/66
[2019-12-10] VITALS (7 sets, daily range): BP systolic 112–122; BP diastolic 66–83
[2019-12-10] MEDS: DEXTROSE 5 % AND 0.9 % NACL 1,000 ML IV SCH ×2 (05:30→15:45)
[2019-12-10] MEDS: HYDROMORPHONE HCL 0.5 MG/0.5 ML ML IVP PRN ×3 (06:19→18:33)
[2019-12-10 06:30] LABS: MAGNESIUM 1.9 mg/dL (1.80-2.40)
[2019-12-10] MEDS: PANTOPRAZOLE 40 MG/VIAL IVP SCH ×2 (08:38→21:15)
[2019-12-11] MEDS: DEXTROSE 5 % AND 0.9 % NACL 1,000 ML IV SCH (01:08)
[2019-12-11] MEDS: HYDROMORPHONE HCL 0.5 MG/0.5 ML ML IVP PRN ×5 (01:34→18:30)
[2019-12-11 04:02] VITALS: BP 117/60
[2019-12-11 06:05] LABS: MEAN CORPUSCULAR HEMOGLOBIN 28.6 pg (27.0-33.0); MEAN CORPUSCULAR HGB CONC 31.1 g/dL (32.0-36.0); MEAN CORPUSCULAR VOLUME 92.1 fL (79-99); RED BLOOD CELL COUNT(AUTO) 3.04 MIL/uL (4.50-6.20); RED CELL DISTRIBUTION WIDTH 14.3 % (11.0-15.5); WHITE BLOOD COUNT (AUTO) 6.3 K/uL (4.8-10.8)
[2019-12-11 07:30] VITALS: BP 113/70
[2019-12-11] MEDS: PANTOPRAZOLE 40 MG/VIAL IVP SCH ×2 (08:44→21:04)
[2019-12-11 11:00] VITALS: BP 117/69
[2019-12-11] MEDS ORDERED: HYDROMORPHONE HCL 0.5 MG/0.5 ML ML IVP SCH (15:45)
[2019-12-11] MEDS ORDERED: HYDROMORPHONE HCL 2 MG/ML VIAL IVP ONE (15:45)
[2019-12-11 16:00] VITALS: BP 129/90
[2019-12-11] MEDS ORDERED: KETOROLAC TROMETHAMINE 30MG/ML IV SCH (17:45)
[2019-12-11 19:09] LABS: CREATININE 0.7 mg/dL (0.5-1.5); MAGNESIUM 1.3 mg/dL (1.80-2.40); POTASSIUM 4.5 mmol/L (3.5-5.1)
[2019-12-11 20:00] VITALS: BP 129/87
--- NOTE | 2019-12-11 20:45 | NUR ---
DR BRADEN FOR PAIN MED ORDER
[2019-12-11] MEDS ORDERED: KETOROLAC TROMETHAMINE 15MG/ML IV SCH (21:00)
--- NOTE | 2019-12-11 22:22 | NUR ---
PROOF COINS INSPECTOR AWARE IR PROCEDURE IS ON HOLD PER DR. BECKER
[2019-12-12] VITALS (7 sets, daily range): BP systolic 116–142; BP diastolic 71–93
[2019-12-12] MEDS: HYDROMORPHONE HCL 0.5 MG/0.5 ML ML IVP PRN ×5 (00:33→21:49)
[2019-12-12] MEDS: PANTOPRAZOLE 40 MG/VIAL IVP SCH ×2 (09:37→20:20)
[2019-12-12] MEDS: DEXTROSE 5 % AND 0.9 % NACL 1,000 ML IV SCH ×2 (09:38→12:57)
[2019-12-12] MEDS ORDERED: HYDROMORPHONE HCL 0.5 MG/0.5 ML ML IVP SCH (09:45)
--- NOTE | 2019-12-12 09:45 | NUR ---
SURGERY RE-CONSULT LYSSA ISABEL CALLED DR ZIMMERMAN'S OFFICE. JUAN TOOK THE MESSAGE AND STATED THAT DR ZIMMEMRAN WILL CALL BACK.
[2019-12-12] MEDS: ENOXAPARIN SODIUM 40 MG/0.4 ML SYRINGE SQ SCH (09:49)
--- NOTE | 2019-12-12 09:59 | NUR ---
GI RE-CONSULT DR DUTTA CALLED BACK. STATED THAT HE IS GOING TO LOOK AT THE CT'S AND WILL CALL ME BACK LATER.
--- NOTE | 2019-12-12 11:30 | NUR ---
ABD PAIN PATIENT COMPLAINED OF HAVING SO MUCH PAIN THAT IT WAS DIFFICULT TO BREATH. BP ELEVATED, HR 126, O2 SAT 94 RA. I CALLED DIMA IT SUPPORT MANAGER, HOSPITALIST CHEMIST ENZYMES TODAY, NEW ORDERS RECEIVED AND CARRIED OUT. ONE TIME DOSE OF DIALUDID 0.5 GIVEN.
--- NOTE | 2019-12-12 12:44 | NUR ---
GENERAL SURGERY RE-CONSULT. DR ZIMMERMAN STATED "THE SURGERY NEEDED IS NOT COMMON IN THE SUPERIOR AND HAVE A LOT OF COMPLICATIONS, PATIENT NEEDS TO BE TRANSFER TO A HIGHER LEVEL OF CARE"
[2019-12-12] MEDS ORDERED: KETOROLAC TROMETHAMINE 15MG/ML ONE (15:48)
--- NOTE | 2019-12-12 15:55 | NUR ---
RD FOLLOW UP NOTE PT NPO related to mild worsening size of pseudocyst, pending GI specialist + Surgical evaluation. Lipase 972. RD concern for weight loss related to Inadequate Energy Intake. If PO/Enteral feedings not possible, Recommend to consider re-initiation of TPN at low rate (50mls/hr), as medically feasible. RD to continue to monitor. Please notify as additional nutrition concerns arise. Thank you. Addendum: 12/12/19 at [address] Amended: Links added.
[2019-12-12] MEDS ORDERED: KETOROLAC TROMETHAMINE 15MG/ML IV SCH (16:00)
[2019-12-12] MEDS: HYDROCODONE/ACETAMINOPHEN 7.5/325 MG TAB PO PRN (20:17)
[2019-12-12 20:48] LABS: INR 1.27 (0.85-1.15); PROTHROMBIN TIME 13.6 SEC (9.6-11.6)
[2019-12-13] VITALS (18 sets, daily range): BP systolic 101–131; BP diastolic 64–85
[2019-12-13] MEDS: DEXTROSE 5 % AND 0.9 % NACL 1,000 ML IV SCH ×3 (00:07→16:40)
[2019-12-13] MEDS: HYDROMORPHONE HCL 0.5 MG/0.5 ML ML IVP PRN ×4 (01:50→20:25)
[2019-12-13 07:17] LABS: BASOPHILS % (AUTO) 0.1 % (0.0-5.0); EOSINOPHILS % (AUTO) 0.1 % (0.0-8.0); HEMATOCRIT 32.2 % (42-54); LYMPHOCYTES % (AUTO) 8.1 % (21.0-51.0); MEAN CORPUSCULAR HEMOGLOBIN 28.8 pg (27.0-33.0); MEAN CORPUSCULAR HGB CONC 30.7 g/dL (32.0-36.0); MEAN CORPUSCULAR VOLUME 93.6 fL (79-99); MONOCYTES % (AUTO) 9.8 % (3.0-13.0); NEUTROPHILS % (AUTO) 81.4 % (40.0-77.0); PLATELET COUNT (AUTO) 367 K/uL (130-400); RED BLOOD CELL COUNT(AUTO) 3.44 MIL/uL (4.50-6.20); RED CELL DISTRIBUTION WIDTH 14.9 % (11.0-15.5); WHITE BLOOD COUNT (AUTO) 14.3 K/uL (4.8-10.8)
[2019-12-13 07:31] LABS: CREATININE 0.8 mg/dL (0.5-1.5)
[2019-12-13 08:00] LABS: CRP QUANTITATIVE 360.5 mg/L (0.00-9.0)
[2019-12-13] MEDS ORDERED: PROPOFOL 10 MG/ML 20ML VIAL IV ONE ×2 (08:56)
[2019-12-13] MEDS: PANTOPRAZOLE 40 MG/VIAL IVP SCH ×2 (09:00→20:24)
[2019-12-13] MEDS: ENOXAPARIN SODIUM 40 MG/0.4 ML SYRINGE SQ SCH (09:00)
[2019-12-13] MEDS ORDERED: SUCCINYLCHOLINE 200MG/10ML SYR ONE (09:07)
--- NOTE | 2019-12-13 10:58 | NUR ---
RD UPDATE NOTIFICATION TO INITIATE TPN D/T PT NOT TOLERATING PO INTAKE - RECEIVED. RECOMMEND INITIATE TPN AT LOW RATE OF 60MLS/HR. FORM PLACED IN PT CHART. RD TO MONITOR FOR 24 HOURS TO ASSESS FOR ADVANCEMENT. PLEASE NOTIFY RD ADDITIONAL NUTRITION CONCERNS ARISE. THANK YOU.
[2019-12-13] MEDS: MAGNESIUM 2GM PREMIX 50ML 50 ML IV PRN (14:38)
[2019-12-13] MEDS ORDERED: METOPROLOL TARTRATE 1 MG/ML 5ML VIAL IV SCH (15:00)
[2019-12-13] MEDS ORDERED: METOPROLOL TARTRATE 1 MG/ML 5ML VIAL IV ONE (15:00)
--- NOTE | 2019-12-13 15:30 | NUR ---
PT STATED THAT HE GOT UP TO THE BATHROOM TO HAVE A BOWEL MOVEMENT . AND HIS GOT BACK TO BED . TELE MONITOR STAFF CALLED AND STATED THAT HIS HEART RATE WENT UP TO THE 140'S TO 150'S . SINUS TACH.. PT BACK TO BED AND IDMA Osorio WAS CALLED AND INFORM REGARDING HIS HEART RATE OF140'S ORDER TO GIVE LOPRESSOR 5 MG IV SLOWLY WHICH WAS GIVEN SLOWLY AND MONITOR HEART RATE AND HELP HIS HEART RATE DOWN TO THE 112'S TOLERATE WELL. STATED ALSO THAT HE WAS ALSO IN PAIN, AND WAS ALSO MEDICATED , TO ASSIT HIS PAIN STATUS, SITTING UP IN BED, CALL LIGHT IN REACH.
[2019-12-13] MEDS ORDERED: M.V.I. IV [ADULT] 10 ML in CLINIMIX E 5%-15% 2,000 ML IV ONE (18:00)
[2019-12-14] MEDS: DEXTROSE 5 % AND 0.9 % NACL 1,000 ML IV SCH ×4 (00:40→22:34)
[2019-12-14] MEDS: HYDROMORPHONE HCL 0.5 MG/0.5 ML ML IVP PRN ×6 (00:54→22:56)
--- NOTE | 2019-12-14 02:15 | NUR ---
RECEIVED REPORT RECEIVED FROM AVINASH CARRANZA. TOOK OVER CARE OF PT AT THIS TIME. NURSE'S ROUNDS DONE. PT RESTING WELL AT THIS TIME. NO DISTRESS NOTED. WILL MONITOR PT.
[2019-12-14 03:00] VITALS: BP 123/75
--- NOTE | 2019-12-14 03:22 | NUR ---
FEVER PCP INFORMS DOCK COORDINATOR THAT PT HAS ALCRGBIMQUS=359.7, HR =120. PT IS WARM TO TOUCH. PAGED CIRA, OPERATOR RECEPTIONIST POWER SHOVEL ENGINEER FOR HOSPITALIST, VIA ANSWERING SERVICE. CIRA CALLED BACK AND REFERRED PT'S FEVER. NEW ORDERS GIVEN, PLEASE REFER TO CPOE. NS 1 LITER HUNG BOLUS DRIP. CALLED LAB FOR TUBES AND BOTTLES FOR CX.
[2019-12-14] MEDS ORDERED: SODIUM CHLORIDE 0.9% 1000ML 1,000 ML IV SCH (03:30)
--- NOTE | 2019-12-14 04:05 | NUR ---
BLOOD DRAW BLOOD DRAWN FROM PICC LINE, BOTH PORTS FLUSHES WELL WITH GOOD BLOOD RETURN. SPECIMEN COLLECTED THEN SENT TO LAB FOR ANALYSIS. CIRA, FLEET SERVICE CLERK PROTECTIVE SERVICES CASE WORKER FOR HOSPITALIST, IN TO SEE PT. REFERRED MEDS FOR FEVER, NEW MED ORDER GIVEN. WILL MEDICATE PT. STATED TO CALL HIM FOR LAB RESULTS.
[2019-12-14] MEDS ORDERED: ACETAMINOPHEN 325 MG TAB ONE (04:38)
--- NOTE | 2019-12-14 04:40 | NUR ---
PAIN PT CALLS FOR PAIN MEDICATION. DILAUDID IV GIVEN FOR PAINS AND TYLENOL 650MG PO GIVEN FOR FEVER. POSITIONED COMFORTABLY IN BED. WILL RE-ASSESS PT.
[2019-12-14] MEDS ORDERED: ACETAMINOPHEN 325 MG TAB PO PRN (04:45)
[2019-12-14 04:50] LABS: HEMATOCRIT 23.6 % (42-54); MEAN CORPUSCULAR HEMOGLOBIN 28.6 pg (27.0-33.0); MEAN CORPUSCULAR HGB CONC 30.9 g/dL (32.0-36.0); MEAN CORPUSCULAR VOLUME 92.5 fL (79-99); RED BLOOD CELL COUNT(AUTO) 2.55 MIL/uL (4.50-6.20); WHITE BLOOD COUNT (AUTO) 7.8 K/uL (4.8-10.8)
[2019-12-14 05:13] LABS: CREATININE 0.7 mg/dL (0.5-1.5); MAGNESIUM 1.7 mg/dL (1.80-2.40); POTASSIUM 3.6 mmol/L (3.5-5.1)
--- NOTE | 2019-12-14 05:39 | NUR ---
RADIOLOGY CHEST X-RAY DONE BY TOWER HAND LEO AT BEDSIDE.
[2019-12-14] MEDS: MAGNESIUM 2GM PREMIX 50ML 50 ML IV PRN (06:03)
[2019-12-14 07:57] VITALS: BP 119/70
--- NOTE | 2019-12-14 08:00 | NUR ---
AM SHIFT ASSESSMENT.HEAD OF BED UP , TPN INFUSING AT 60ML/HR VIA PICC LT. UPPER ARM. EXTREMELY PALE, SKIN WARM AND C/O OF PAIN TO ABD AND LT FLANK AREA, NEPHROSTOMY TUBE IN LACE WITH CLEAR YELLOW URINE ALSO HAS A NOLASCO TUBE IN PLACE VIA LT. NARE. CLAMPED AT THIS TIME. SOB ALSO , PLACED ON 2 LITERS OF 02 AT 2 LITERS MACHINE LEATHER TRIMMER IN PLACE AND RATE HAS BEEN IN THE 120S.
[2019-12-14] MEDS: PANTOPRAZOLE 40 MG/VIAL IVP SCH ×2 (08:51→22:46)
[2019-12-14] MEDS: ENOXAPARIN SODIUM 40 MG/0.4 ML SYRINGE SQ SCH (08:53)
[2019-12-14 11:33] VITALS: BP 133/80
--- NOTE | 2019-12-14 13:30 | NUR ---
DR. FALLON IN TO SEE PT.. INFORMED OF HIGH TEMP LAST EVENING , BLD CX. DONE , NO REPORT YET, STATES WILL NOT START ABX YET.
--- NOTE | 2019-12-14 14:43 | NUR ---
RD UPDATE TPN initiated 12/13/191814. RD recommend monitor overnight. Pending advance rate tomorrow morning. Please notify as additional nutrition concerns arise. Thank you.
--- NOTE | 2019-12-14 17:00 | NUR ---
NEPHROSTOMY TUBE FLUSHED WITH 10ML OF NS. FLUSHES EASILY
[2019-12-14 17:55] VITALS: BP 118/85
--- NOTE | 2019-12-14 18:00 | NUR ---
HAS BEEN HAS HAVING PAIN MOST OD DILAUDID HELPS A LITTLE BUT WEARS OFF LIKE IN [address]KING IF WE CAN DR. FOR A STRONGER DOSE.
--- NOTE | 2019-12-14 19:40 | NUR ---
STEAMBOAT PILOT ROUNDING STEAMBOAT PILOT FRANCISCO IN TO SEE PATIENT, PT C/O MILD CHEST PAIN, SOB, AND JUST NOT FEELING WELL. TEMP AT 17:55 101, RECHECK 98.1, BUT PT CONTINUES TACHYCARDIC HR AT 121. BLOOD CULTURES TAKEN EARLIER THIS MORNING PENDING RESULTS, PENDING TO OBTAIN URINE SAMPLE FOR ANALYSIS AND CULTURE. RECEIVED NEW ORDERS AT THIS TIME (REFER TO EMR). Addendum: 12/14/19 at 2056 by MARIAH LLANOS RN Amended: Links added.
[2019-12-14] MEDS ORDERED: M.V.I. IV [ADULT] 10 ML in CLINIMIX E 5%-15% 2,000 ML IV SCH (19:45)
[2019-12-14 20:55] LABS: MYOGLOBIN 7 ng/mL (10-92); TROPONIN I < 0.04 ng/mL (0.00-0.06)
[2019-12-14 20:58] VITALS: BP 118/73
--- NOTE | 2019-12-14 21:11 | NUR ---
INFECTIOUS DISEASE UPDATED. PER STOCKLAYER FRANCISCO FALLON WAS CALLED AND MADE AWARE OF PT EPISODES OF INCREASED TEMP, AND CXR RESULTS. NEW ORDERS GIVEN BY DR FALLON TOSTART PT ON ANTIBIOTIC THERAPY (REFER TO EMR FOR ORDERS).
[2019-12-14 21:15] LABS: CREATINE KINASE, TOTAL < 7 U/L (21-232)
[2019-12-14] MEDS ORDERED: VANCOMYCIN PROTOCOL PER PHARMACY IV SCH (21:15)
[2019-12-14] MEDS: ZOSYN 3.375GM+NS 50ML 50 ML IV SCH (22:34)
[2019-12-14] MEDS: VANCOMYCIN 1GM+NS 250ML 250 ML IV SCH (22:34)
[2019-12-14 23:44] VITALS: BP 117/76
[2019-12-15] MEDS: DEXTROSE 5 % AND 0.9 % NACL 1,000 ML IV SCH ×3 (01:58→22:20)
[2019-12-15] MEDS: HYDROMORPHONE HCL 0.5 MG/0.5 ML ML IVP PRN ×6 (02:56→21:21)
[2019-12-15 03:53] VITALS: BP 125/78
[2019-12-15 04:55] LABS: APPEARANCE,URINE Clear (CLEAR); BILIRUBIN,URINE Negative (NEGATIVE); COLOR,URINE Yellow (YELLOW); GLUCOSE, URINE (UA) Negative (NEGATIVE); KETONES,URINE Negative (NEGATIVE); LEUKOCYTE ESTERASE ,URINE Trace (NEGATIVE); NITRATE,URINE Negative (NEGATIVE); OCCULT BLOOD,URINE Negative (NEGATIVE); PH,URINE 6.5 (5.0-8.0); PROTEIN,URINE Trace mg/dL (NEGATIVE)
[2019-12-15 05:04] LABS: BACTERIA,URINE None Seen /HPF (None Seen); RBC,URINE 0-1 /HPF (0-1); SQUAMOUS EPITHELIAL CELL,UR Rare /HPF (0-2)
[2019-12-15] MEDS: ZOSYN 3.375GM+NS 50ML 50 ML IV SCH ×3 (06:45→22:20)
[2019-12-15 07:29] VITALS: BP 133/88
[2019-12-15 07:31] LABS: BASOPHILS % (AUTO) 0.1 % (0.0-5.0); EOSINOPHILS % (AUTO) 0.3 % (0.0-8.0); HEMATOCRIT 24.1 % (42-54); LYMPHOCYTES % (AUTO) 10.3 % (21.0-51.0); MEAN CORPUSCULAR HEMOGLOBIN 29.6 pg (27.0-33.0); MEAN CORPUSCULAR VOLUME 92.7 fL (79-99); MONOCYTES % (AUTO) 14.6 % (3.0-13.0); NEUTROPHILS % (AUTO) 74.2 % (40.0-77.0); PLATELET COUNT (AUTO) 299 K/uL (130-400); RED CELL DISTRIBUTION WIDTH 14.6 % (11.0-15.5); WHITE BLOOD COUNT (AUTO) 10.5 K/uL (4.8-10.8)
[2019-12-15 07:34] LABS: CREATININE 0.7 mg/dL (0.5-1.5); POTASSIUM 3.3 mmol/L (3.5-5.1)
[2019-12-15 07:44] LABS: CRP QUANTITATIVE 241.4 mg/L (0.00-9.0)
--- NOTE | 2019-12-15 08:12 | NUR ---
RE: Orders for pancreatic pseudocyst drain placement today. Spoke with Chato from IR who stated that Interventional Radiologist on duty today has previously refused this procedure due to high risk, and ordering provider needs to call for 1:1 discussion. Notified KAREN Rubio who placed order. Neville Izquierdo instructed to update Dr. Poon and request that he speak with Dr. Ridley [phone]. Primary nurse informed, will call.
[2019-12-15 08:20] LABS: ALBUMIN 1.1 g/dL (3.5-5.0); BILIRUBIN,TOTAL 0.5 mg/dL (0.2-1.0); MAGNESIUM 1.5 mg/dL (1.80-2.40); PHOSPHORUS 2.6 mg/dL (2.5-4.9); TOTAL PROTEIN, SERUM 4.9 g/dL (6.0-8.3)
[2019-12-15 08:47] LABS: INR 1.18 (0.85-1.15); PARTIAL THROMBOPLASTIN TIME 31.8 SEC (26.3-35.5); PROTHROMBIN TIME 12.7 SEC (9.6-11.6)
--- NOTE | 2019-12-15 08:51 | NUR ---
SPOKE TO DR. DUTTA REGARDING PSEUDOCYST DRAIN PROCEDURE NOT RECOMMENDED BY DR. DUARTE (IR). PER DR. DUTTA WILL CALL DR. DUARTE TO DISCUSS PROCEDURE AT [phone].
[2019-12-15] MEDS: PANTOPRAZOLE 40 MG/VIAL IVP SCH ×2 (08:54→20:30)
[2019-12-15] MEDS: VANCOMYCIN 1GM+NS 250ML 250 ML IV SCH ×2 (08:54→20:30)
[2019-12-15 09:22] LABS: ERYTHROCYTE SEDIMENTATION RATE 50 MM/HR (0-15)
[2019-12-15] MEDS ORDERED: METOPROLOL TARTRATE 1 MG/ML 5ML VIAL IV PRN (09:30)
--- NOTE | 2019-12-15 10:50 | NUR ---
TRANSFER PLACED A CALL TO [facility], SPOKE WITH LADI AT THE TRANSFER CENTER GAVE HER PERTINENT INFO. OUR GI MD DR. DUTTA HAD SPOKEN TO DR. MITCHELL A SURGEON AT [facility] WHO ACCEPTED THE PATIENT. AWAITING CALL BACK.
--- NOTE | 2019-12-15 11:10 | NUR ---
TRANSFER RECEIVED A CALL BACK FROM LADI VERDUZCO, SHE STATED THAT THEY ARE DECLINING THE TRANSFER AT THIS TIME DUE TO CAPACITY. PRIMARY AND CHARGE NURSE NOTIFIED.
--- NOTE | 2019-12-15 11:13 | NUR ---
RD UPDATE Recommendations placed for advancement of TPN rate, when medically feasible. Recommend increase TPN rate to 75mls/hr. Recommend IV Lipids (M-W- schedule) and pancreatic enzymes, as medically feasible. Pending possible transfer and procedure, as per EMR. RD to continue to monitor.
[2019-12-15] MEDS ORDERED: PHARMACY COMMUNICATION MISC SCH (11:30)
[2019-12-15 11:36] VITALS: BP 137/84
[2019-12-15] MEDS ORDERED: SODIUM CHLORIDE 0.9% 1000ML 1,000 ML IV SCH (11:45)
[2019-12-15] MEDS: METOPROLOL TARTRATE 1 MG/ML 5ML VIAL IV SCH ×3 (11:55→23:43)
[2019-12-15] MEDS ORDERED: IOHEXOL-350 75 ML VIAL IV ONE (15:30)
[2019-12-15 16:40] VITALS: BP 142/89
[2019-12-15] MEDS ORDERED: M.V.I. IV [ADULT] 10 ML in CLINIMIX E 5%-15% 2,000 ML IV SCH (19:30)
[2019-12-15 20:32] VITALS: BP 123/80
[2019-12-15 23:56] VITALS: BP 121/61
[2019-12-16] MEDS ORDERED: KETOROLAC TROMETHAMINE 15MG/ML ONE (00:43)
[2019-12-16] MEDS ORDERED: KETOROLAC TROMETHAMINE 15MG/ML IV ONE (00:45)
[2019-12-16] MEDS: HYDROMORPHONE HCL 0.5 MG/0.5 ML ML IVP PRN ×6 (01:33→23:54)
[2019-12-16] MEDS: DEXTROSE 5 % AND 0.9 % NACL 1,000 ML IV SCH ×3 (02:51→23:21)
[2019-12-16 03:53] VITALS: BP 103/65
[2019-12-16] MEDS: ZOSYN 3.375GM+NS 50ML 50 ML IV SCH ×3 (05:32→21:05)
[2019-12-16] MEDS: METOPROLOL TARTRATE 1 MG/ML 5ML VIAL IV SCH ×5 (06:37→23:54)
[2019-12-16 07:30] VITALS: BP 114/79
[2019-12-16] MEDS: PANTOPRAZOLE 40 MG/VIAL IVP SCH ×2 (08:05→21:04)
--- NOTE | 2019-12-16 08:15 | NUR ---
CALL FROM T/C FROM STATES GOT A CALL FROM SURGEON AT [facility] SAID THAT IF TELEMETRY CAN BE DISCONTINUE. INFORM WILL ASK PRIMARY. STATES ONCE THIS IS DONE THEN TO CALL THEM BACK. CALL TO CHIEF EXECUTIVE OR MANAGING DIRECTOR, KURT MOSER.
[2019-12-16 08:32] LABS: MEAN CORPUSCULAR HEMOGLOBIN 28.8 pg (27.0-33.0); RED BLOOD CELL COUNT(AUTO) 2.29 MIL/uL (4.50-6.20); RED CELL DISTRIBUTION WIDTH 14.5 % (11.0-15.5); WHITE BLOOD COUNT (AUTO) 8.6 K/uL (4.8-10.8)
[2019-12-16 08:49] LABS: BILIRUBIN,TOTAL 0.3 mg/dL (0.2-1.0); CREATININE 0.6 mg/dL (0.5-1.5); TOTAL PROTEIN, SERUM 4.5 g/dL (6.0-8.3)
--- NOTE | 2019-12-16 09:08 | NUR ---
transfer reinitiated to [facility] do to new bed status spoke with Pooja intake nurse at this time no medical med denial for full to capacity will follow up next shift charge nurse made aware. Bhavesh marmolejo
[2019-12-16 09:10] LABS: HEMATOCRIT 20.6 % (42-54)
--- NOTE | 2019-12-16 09:13 | NUR ---
Notified Lupe Parr NP of potassium level 3.0, Hemoglobin 6.6 and Hematocrit 20.6. Sinus tachycardic at 106 bpm. Patient reports weakness and generally feeilng tired. Received order for transfusion of 1 PRBC and initiate potassium protocol.
[2019-12-16] MEDS ORDERED: LIDOCAINE HCL-MPF 1% 2ML VIAL IV PRN (09:45)
[2019-12-16] MEDS: VANCOMYCIN 1.25 GM in SODIUM CHLORIDE 0.9% 250 ML IV SCH ×2 (10:15→22:40)
[2019-12-16] MEDS: FAT EMULSIONS 20% 250ML 250 ML IV SCH (10:15)
[2019-12-16 11:00] VITALS: BP 129/78
[2019-12-16] MEDS ORDERED: COMPOUND IV REFRIGERATED 1 EACH IVSOLN MISC PRN (12:00)
[2019-12-16] MEDS: ACETAMINOPHEN 650 MG SUPPOSITORY RC SCH ×2 (13:00→13:30)
[2019-12-16] MEDS ORDERED: SODIUM CHLORIDE 0.9% 250 ML IV ONE (13:01)
--- NOTE | 2019-12-16 13:26 | NUR ---
1240 transfer call received from primary nurse regarding pt upgraded with tele monitor and requesting to call R with this up date. [address] [facility] spoke to intake nurse Sadie to inform of pt back to telemetry monitoring plus update on K+ and hgb levels. Bhavesh marmolejo
[2019-12-16] MEDS ORDERED: ACETAMINOPHEN 650 MG SUPPOSITORY RC PRN ×2 (13:30)
[2019-12-16] MEDS ORDERED: KETOROLAC TROMETHAMINE 15MG/ML IV SCH (13:30)
[2019-12-16] MEDS ORDERED: DiphenhydrAMINE HCL 50 MG/ML VIAL IV PRN (13:30)
--- NOTE | 2019-12-16 13:30 | NUR ---
Notified Lupe Parr NP of T100.1 while preparing to administer PRBC. Received order for Tylenol 650 mg suppository, Benadryl 12.5 mg IV Push and to hold transfusion until fever has dissipated.
[2019-12-16] MEDS: FLUCONAZOLE 200 MG/NS 100 ML 100 ML IV SCH (13:33)
--- NOTE | 2019-12-16 14:04 | NUR ---
RD UPDATE TPN rate advanced to 75mL/hr. IV Lipids Pending this AM. Noted elevated Lipase (730). Initiate lipids as medically feasible. Pt pending transfer to R for higher level of care, per EMR. Please notify RD as additional nutrition concerns arise.
--- NOTE | 2019-12-16 15:20 | NUR ---
1 unit PRBC verified with Stewart Adhikari RN. Unit initiated at 70 mL/hr after educating patient on signs of allergic reactions and to report if present. Patient verbalized understanding. No reactions noted at 5 minute post vitals. Bed low, locked. Call fuentes within reach.
[2019-12-16] MEDS: POTASSIUM CHLORIDE 20MEQ/100ML 100 ML IV PRN ×2 (15:28→21:05)
[2019-12-16 15:30] VITALS: BP 115/75
[2019-12-16 20:00] VITALS: BP 118/73
[2019-12-16] MEDS: HYDROCODONE/ACETAMINOPHEN 7.5/325 MG TAB PO PRN (21:25)
[2019-12-17] VITALS (7 sets, daily range): BP systolic 105–123; BP diastolic 65–79
[2019-12-17] MEDS: MAGNESIUM 2GM PREMIX 50ML 50 ML IV PRN (00:54)
[2019-12-17] MEDS: HYDROMORPHONE HCL 0.5 MG/0.5 ML ML IVP PRN ×5 (03:57→20:50)
[2019-12-17 04:09] LABS: BASOPHILS % (AUTO) 0.2 % (0.0-5.0); EOSINOPHILS % (AUTO) 2.4 % (0.0-8.0); HEMATOCRIT 24.8 % (42-54); LYMPHOCYTES % (AUTO) 17.6 % (21.0-51.0); MEAN CORPUSCULAR HEMOGLOBIN 28.1 pg (27.0-33.0); MEAN CORPUSCULAR HGB CONC 31.9 g/dL (32.0-36.0); MEAN CORPUSCULAR VOLUME 88.3 fL (79-99); MONOCYTES % (AUTO) 16.3 % (3.0-13.0); NEUTROPHILS % (AUTO) 61.7 % (40.0-77.0); PLATELET COUNT (AUTO) 354 K/uL (130-400); RED BLOOD CELL COUNT(AUTO) 2.81 MIL/uL (4.50-6.20); RED CELL DISTRIBUTION WIDTH 17.6 % (11.0-15.5); WHITE BLOOD COUNT (AUTO) 9.8 K/uL (4.8-10.8)
[2019-12-17 04:15] LABS: BILIRUBIN,TOTAL 0.7 mg/dL (0.2-1.0); CREATININE 0.6 mg/dL (0.5-1.5); MAGNESIUM 2.1 mg/dL (1.80-2.40); POTASSIUM 3.4 mmol/L (3.5-5.1); TOTAL PROTEIN, SERUM 4.9 g/dL (6.0-8.3)
[2019-12-17 04:27] LABS: CRP QUANTITATIVE 227.8 mg/L (0.00-9.0)
[2019-12-17] MEDS: ZOSYN 3.375GM+NS 50ML 50 ML IV SCH ×3 (05:43→22:11)
[2019-12-17] MEDS: METOPROLOL TARTRATE 1 MG/ML 5ML VIAL IV SCH ×3 (06:17→18:43)
[2019-12-17] MEDS: POTASSIUM CHLORIDE 20MEQ/100ML 100 ML IV PRN (06:17)
--- NOTE | 2019-12-17 07:29 | NUR ---
transfer as per ongoing house wirer helper, [facility] intake nurse called on 12/16/19 at 2040 still no bed. Bhavesh marmolejo
[2019-12-17] MEDS ORDERED: M.V.I. IV [ADULT] 10 ML in CLINIMIX E 5%-15% 2,000 ML IV SCH (07:45)
[2019-12-17] MEDS: PANTOPRAZOLE 40 MG/VIAL IVP SCH ×2 (08:41→20:50)
[2019-12-17] MEDS: VANCOMYCIN 1.25 GM in SODIUM CHLORIDE 0.9% 250 ML IV SCH ×2 (10:08→21:44)
[2019-12-17] MEDS: FLUCONAZOLE 200 MG/NS 100 ML 100 ML IV SCH (11:59)
[2019-12-17] MEDS: DEXTROSE 5 % AND 0.9 % NACL 1,000 ML IV SCH ×2 (13:58→21:44)
--- NOTE | 2019-12-17 14:58 | NUR ---
1050 transfer request reinitiated to [facility] intake nurse Pooja, information fax as requested, information fax multiple times since as per intake nurse nothing received. 1210 per intake nurse fax received now pending a call back. 1450 pt inform of transfer request reinitiated and pending call back , primary nurse in room with pt both verbalized understanding . Bhavesh marmolejo
[2019-12-18] MEDS: METOPROLOL TARTRATE 1 MG/ML 5ML VIAL IV SCH ×4 (00:12→17:07)
[2019-12-18] MEDS: HYDROMORPHONE HCL 0.5 MG/0.5 ML ML IVP PRN ×5 (00:54→19:56)
[2019-12-18] MEDS ORDERED: ALTEPLASE 2 MG/VIAL IVCATH ONE (03:00)
[2019-12-18 03:35] VITALS: BP 114/73
[2019-12-18 03:47] LABS: BASOPHILS % (AUTO) 0.2 % (0.0-5.0); EOSINOPHILS % (AUTO) 4.2 % (0.0-8.0); HEMATOCRIT 24.2 % (42-54); LYMPHOCYTES % (AUTO) 19.4 % (21.0-51.0); MEAN CORPUSCULAR HEMOGLOBIN 27.9 pg (27.0-33.0); MEAN CORPUSCULAR HGB CONC 32.2 g/dL (32.0-36.0); MEAN CORPUSCULAR VOLUME 86.4 fL (79-99); MONOCYTES % (AUTO) 18.8 % (3.0-13.0); NEUTROPHILS % (AUTO) 55.5 % (40.0-77.0); PLATELET COUNT (AUTO) 361 K/uL (130-400); RED CELL DISTRIBUTION WIDTH 17.4 % (11.0-15.5)
[2019-12-18 04:23] LABS: ALBUMIN 1.1 g/dL (3.5-5.0); BILIRUBIN,TOTAL 0.5 mg/dL (0.2-1.0); CREATININE 0.7 mg/dL (0.5-1.5); POTASSIUM 3.9 mmol/L (3.5-5.1); TOTAL PROTEIN, SERUM 5.1 g/dL (6.0-8.3)
[2019-12-18] MEDS: ZOSYN 3.375GM+NS 50ML 50 ML IV SCH ×3 (05:16→21:38)
[2019-12-18] MEDS ORDERED: M.V.I. IV [ADULT] 10 ML in CLINIMIX E 5%-15% 2,000 ML IV SCH (07:00)
[2019-12-18 08:54] VITALS: BP 116/79
--- NOTE | 2019-12-18 09:32 | NUR ---
0915 no bed at [facility] last night transfer reinitiated this am spoke with intake nurse Pooja which states she received fax and will follow up with consulting surgeon regarding pt status and then from there will need to find an accepting physican at this time pending acceptance and bed. Bhavesh marmolejo
[2019-12-18] MEDS: DEXTROSE 5 % AND 0.9 % NACL 1,000 ML IV SCH (09:58)
[2019-12-18] MEDS: PANTOPRAZOLE 40 MG/VIAL IVP SCH ×2 (10:23→19:56)
[2019-12-18] MEDS: VANCOMYCIN 1GM+NS 250ML 250 ML IV SCH ×2 (10:29→17:07)
--- NOTE | 2019-12-18 11:13 | NUR ---
1100 [facility] intake nurse call back with an executive physician decision to place transfer on hold till tomorrow for further discussion with administration and possible requirement of a covid testing Per R Protocol. Dr martinez made aware. Bhavesh marmolejo
[2019-12-18 11:59] VITALS: BP 114/72
[2019-12-18] MEDS: ACETAMINOPHEN 650 MG SUPPOSITORY RC SCH (13:30)
[2019-12-18] MEDS: FLUCONAZOLE 200 MG/NS 100 ML 100 ML IV SCH (14:07)
[2019-12-18 16:34] VITALS: BP 107/73
[2019-12-18 20:50] VITALS: BP 115/81
[2019-12-19] VITALS (7 sets, daily range): BP systolic 108–120; BP diastolic 63–82
[2019-12-19] MEDS: VANCOMYCIN 1GM+NS 250ML 250 ML IV SCH ×3 (00:06→17:46)
[2019-12-19] MEDS: HYDROMORPHONE HCL 0.5 MG/0.5 ML ML IVP PRN ×5 (00:06→19:46)
--- NOTE | 2019-12-19 01:50 | NUR ---
PAIN Pt medicated for pain with Dilaudid q 4 hr as per request.Voiced no other complaints.
[2019-12-19] MEDS: ZOSYN 3.375GM+NS 50ML 50 ML IV SCH ×3 (05:57→21:15)
[2019-12-19] MEDS: METOPROLOL TARTRATE 1 MG/ML 5ML VIAL IV SCH ×4 (05:58→17:47)
[2019-12-19] MEDS: PANTOPRAZOLE 40 MG/VIAL IVP SCH ×2 (09:36→19:46)
[2019-12-19] MEDS: FAT EMULSIONS 20% 250ML 250 ML IV SCH (09:37)
[2019-12-19 10:22] LABS: BASOPHILS % (AUTO) 0.5 % (0.0-5.0); EOSINOPHILS % (AUTO) 4.8 % (0.0-8.0); HEMATOCRIT 23.4 % (42-54); LYMPHOCYTES % (AUTO) 20.2 % (21.0-51.0); MEAN CORPUSCULAR HEMOGLOBIN 27.9 pg (27.0-33.0); MEAN CORPUSCULAR HGB CONC 31.2 g/dL (32.0-36.0); MEAN CORPUSCULAR VOLUME 89.3 fL (79-99); MONOCYTES % (AUTO) 13.8 % (3.0-13.0); NEUTROPHILS % (AUTO) 58.2 % (40.0-77.0); PLATELET COUNT (AUTO) 382 K/uL (130-400); RED BLOOD CELL COUNT(AUTO) 2.62 MIL/uL (4.50-6.20); RED CELL DISTRIBUTION WIDTH 17.2 % (11.0-15.5); WHITE BLOOD COUNT (AUTO) 6.5 K/uL (4.8-10.8)
[2019-12-19 10:52] LABS: ALBUMIN 1.1 g/dL (3.5-5.0); BILIRUBIN,TOTAL 0.3 mg/dL (0.2-1.0); CREATININE 0.9 mg/dL (0.5-1.5); POTASSIUM 3.1 mmol/L (3.5-5.1); TOTAL PROTEIN, SERUM 6.2 g/dL (6.0-8.3)
[2019-12-19] MEDS: FLUCONAZOLE 200 MG/NS 100 ML 100 ML IV SCH (12:40)
[2019-12-19] MEDS: ACETAMINOPHEN 650 MG SUPPOSITORY RC SCH (13:30)
--- NOTE | 2019-12-19 13:30 | NUR ---
1130 transfer request reinitiated to [facility] intake nurse fax send but not transmitted requesting for information to be e-mail . 1220 information scan and sent by e-mail 1230 call back from [facility] intake nurse Cristian Gardner with a denial per administration no bed full to capacity. 1320 pt and primary nurse notified both verbalized understanding. Bhavesh marmolejo
--- NOTE | 2019-12-19 14:16 | NUR ---
[address] [facility] [phone] intake nurse Alena after checking with warehouse laborer pt declined for no beds full to capacity. Bhavesh marmolejo
[2019-12-19 14:50] LABS: MAGNESIUM 1.5 mg/dL (1.80-2.40)
--- NOTE | 2019-12-19 15:04 | NUR ---
JEROD FOLLOW UP Pt pending transfer for higher level of care. Facilities full to capacity at this time, as per EMR. Recommend continue TPN, Clinimix E 12/29 @75mls/hr. Recommend continue Intralipids -. JEROD to continue to monitor. Please notify as additional nutrition concerns arise. Thank you. Addendum: 12/19/19 at [address] Amended: Links added.
[2019-12-19] MEDS: DEXTROSE 5 %-0.45 % NACL 1,000 ML IV SCH (15:09)
--- NOTE | 2019-12-19 15:15 | NUR ---
[address] to [facility] in [place] spoke with Emre intake nurse [phone] . 1450 call back from intake nurse with a denial no bed full to capacity. Bhavesh marmolejo
--- NOTE | 2019-12-19 15:40 | NUR ---
1520 transfer request to [facility] spoke to intake nurse Genevieve [phone] information provided will call back. 1535 call back with a denial No beds full to capacity. Bhavesh marmolejo
[2019-12-19 15:57] LABS: % IRON SATURATION 32.7 % (30-44)
[2019-12-19] MEDS ORDERED: M.V.I. IV [ADULT] 10 ML in CLINIMIX E 5%-15% 2,000 ML IV SCH (18:15)
[2019-12-19] MEDS: MAGNESIUM 2GM PREMIX 50ML 50 ML IV PRN (19:15)
[2019-12-19] MEDS: POTASSIUM CHLORIDE 20MEQ/100ML 100 ML IV PRN ×2 (21:15→22:39)
--- NOTE | 2019-12-19 22:00 | NUR ---
MOTHER Concepcion,mother called and updated on pts. status.
[2019-12-20] MEDS: HYDROMORPHONE HCL 0.5 MG/0.5 ML ML IVP PRN ×6 (00:47→22:12)
[2019-12-20] MEDS: DEXTROSE 5 %-0.45 % NACL 1,000 ML IV SCH (01:16)
[2019-12-20] MEDS: VANCOMYCIN 1GM+NS 250ML 250 ML IV SCH ×3 (01:16→20:10)
[2019-12-20 04:00] VITALS: BP 108/76
[2019-12-20] MEDS: METOPROLOL TARTRATE 1 MG/ML 5ML VIAL IV SCH ×4 (04:53→17:58)
[2019-12-20] MEDS: ZOSYN 3.375GM+NS 50ML 50 ML IV SCH ×3 (05:10→22:11)
[2019-12-20 05:12] LABS: BASOPHILS % (AUTO) 0.4 % (0.0-5.0); EOSINOPHILS % (AUTO) 6.1 % (0.0-8.0); HEMATOCRIT 29.3 % (42-54); MEAN CORPUSCULAR HEMOGLOBIN 27.8 pg (27.0-33.0); MEAN CORPUSCULAR HGB CONC 31.7 g/dL (32.0-36.0); MEAN CORPUSCULAR VOLUME 87.7 fL (79-99); NEUTROPHILS % (AUTO) 66.3 % (40.0-77.0); PLATELET COUNT (AUTO) 462 K/uL (130-400); RED BLOOD CELL COUNT(AUTO) 3.34 MIL/uL (4.50-6.20); RED CELL DISTRIBUTION WIDTH 16.9 % (11.0-15.5); WHITE BLOOD COUNT (AUTO) 10.3 K/uL (4.8-10.8)
[2019-12-20 05:50] LABS: CREATININE 0.7 mg/dL (0.5-1.5); MAGNESIUM 2.1 mg/dL (1.80-2.40); POTASSIUM 4.4 mmol/L (3.5-5.1)
[2019-12-20 08:05] VITALS: BP 107/73
[2019-12-20] MEDS: PANTOPRAZOLE 40 MG/VIAL IVP SCH ×2 (09:16→20:10)
[2019-12-20] MEDS ORDERED: FAT EMULSIONS 20% 250ML 250 ML IV SCH (10:00)
[2019-12-20] MEDS ORDERED: PHARMACY COMMUNICATION MISC SCH (10:15)
[2019-12-20 11:36] VITALS: BP 113/72
[2019-12-20] MEDS: FLUCONAZOLE 200 MG/NS 100 ML 100 ML IV SCH (11:58)
[2019-12-20] MEDS: ACETAMINOPHEN 650 MG SUPPOSITORY RC SCH (12:39)
[2019-12-20 16:23] VITALS: BP 113/75
[2019-12-20] MEDS: M.V.I. IV [ADULT] 10 ML in CLINIMIX E 5%-15% 2,000 ML IV SCH (18:04)
[2019-12-20 20:33] VITALS: BP 106/71
[2019-12-21] VITALS (7 sets, daily range): BP systolic 106–119; BP diastolic 70–80
--- NOTE | 2019-12-21 00:25 | NUR ---
STATUS Pt calm,afebrile,heart rate 80's sinus rhythm.Pain controlled with Dilaudid every 4 hrs,Pt pietro TPN.Picc line double lumen both ports patent.Picc site with no signs of infection.Left nephrostomy tube draining clear output.
[2019-12-21] MEDS: HYDROMORPHONE HCL 0.5 MG/0.5 ML ML IVP PRN ×6 (02:14→22:38)
--- NOTE | 2019-12-21 02:38 | NUR ---
MOVED Pt moved to room 314.
[2019-12-21 04:35] LABS: HEMATOCRIT 28.7 % (42-54); MEAN CORPUSCULAR HEMOGLOBIN 27.6 pg (27.0-33.0); MEAN CORPUSCULAR VOLUME 88.9 fL (79-99); RED BLOOD CELL COUNT(AUTO) 3.23 MIL/uL (4.50-6.20); RED CELL DISTRIBUTION WIDTH 17.1 % (11.0-15.5); WHITE BLOOD COUNT (AUTO) 11.2 K/uL (4.8-10.8)
[2019-12-21 04:48] LABS: CREATININE 0.9 mg/dL (0.5-1.5); POTASSIUM 4.2 mmol/L (3.5-5.1)
[2019-12-21] MEDS: METOPROLOL TARTRATE 1 MG/ML 5ML VIAL IV SCH ×4 (04:58→18:36)
[2019-12-21] MEDS: ZOSYN 3.375GM+NS 50ML 50 ML IV SCH ×3 (05:56→22:38)
[2019-12-21] MEDS: PANTOPRAZOLE 40 MG/VIAL IVP SCH ×2 (09:31→20:33)
[2019-12-21] MEDS: VANCOMYCIN 1GM+NS 250ML 250 ML IV SCH ×2 (09:31→20:39)
[2019-12-21] MEDS: PAROXETINE HCL 20 MG TABLET PO SCH (10:27)
[2019-12-21] MEDS: FAT EMULSIONS 20% 250ML 250 ML IV SCH (10:29)
[2019-12-21] MEDS: FLUCONAZOLE 200 MG/NS 100 ML 100 ML IV SCH (12:35)
[2019-12-21] MEDS: ACETAMINOPHEN 650 MG SUPPOSITORY RC SCH (13:30)
--- NOTE | 2019-12-21 13:40 | NUR ---
RECEIVED CALL FROM COMBO WELDER. PATIENT SVT 170S. AT THIS TIME PATIENT AMBULATING BACK FROM RESTROOM. DENIES CHEST PAIN, NO SIGNS AND SYMPTOMS OF DISTRESS NOTED. ADMINISTERED IV PUSH METOPROLOL PER ORDER. HEARTRATE QUICKLY CAME DOWN TO THE 90S. WILL CONTINUE TO MONITOR PATIENT
--- NOTE | 2019-12-21 15:19 | NUR ---
1435 transfer request resubmitted updated information via email to R intake nurse Pooja, question arise regarding covid test, informed test send out and pending results verbalized understanding will call back. Bhavesh marmolejo
--- NOTE | 2019-12-21 18:39 | NUR ---
RECEIVED CALL FROM SERVICE CASHIER PATIENT SINUS TACHY 140-150. AT THIS TIME PATIENT IN RESTROOM. DENIES CHEST PAIN, REPORTS ABDOMINAL PAIN 03/26. PAIN IN AGGRAVATED WITH MOVEMENT. ADMINISTERED SCHEDULED DOSE OF IV METOPROLOL PER ORDER. MEDICATED FOR PAIN. WILL CONTINUE TO MONITOR
--- NOTE | 2019-12-21 19:52 | NUR ---
2135 R intake nurse call back we need to follow up when we have covid result. Bhavesh marmolejo
[2019-12-21] MEDS: M.V.I. IV [ADULT] 10 ML in CLINIMIX E 5%-15% 2,000 ML IV SCH (21:47)
[2019-12-22] VITALS (7 sets, daily range): BP systolic 101–127; BP diastolic 70–92
[2019-12-22] MEDS: METOPROLOL TARTRATE 1 MG/ML 5ML VIAL IV SCH ×5 (00:38→20:38)
[2019-12-22] MEDS: HYDROMORPHONE HCL 0.5 MG/0.5 ML ML IVP PRN ×6 (02:40→20:39)
[2019-12-22] MEDS: ZOSYN 3.375GM+NS 50ML 50 ML IV SCH ×2 (06:06→14:03)
[2019-12-22 06:23] LABS: MAGNESIUM 1.9 mg/dL (1.80-2.40); POTASSIUM 4.2 mmol/L (3.5-5.1)
--- NOTE | 2019-12-22 08:51 | NUR ---
Dr. Mackay made aware of episodes of sinus tachy/ short episodes of SVT with activity. new order for cardio consult. Dr. Quintana office made aware
[2019-12-22] MEDS ORDERED: M.V.I. IV [ADULT] 10 ML in CLINIMIX E 5%-15% 2,000 ML IV SCH (09:00)
--- NOTE | 2019-12-22 09:20 | NUR ---
SPOKE TO DR. BECKER, SUGGESTED TRANSFER TO PCCU D/T UNSTABLE TELEMETRY CHANGES WITH ACTIVITY. AT THIS TIME DR. BECKER WANTS THE INPUT OF CARDIOLOGY BEFORE CONSIDERING A TRANSFER. CONSULT CHANGED FROM DR. HURLEY TO DR. PRECIADO, PATIENT SEEN BY [facility].
[2019-12-22] MEDS: PANTOPRAZOLE 40 MG/VIAL IVP SCH ×2 (10:02→21:00)
[2019-12-22] MEDS: PAROXETINE HCL 20 MG TABLET PO SCH (10:03)
[2019-12-22] MEDS: VANCOMYCIN 1GM+NS 250ML 250 ML IV SCH ×2 (10:03→20:39)
--- NOTE | 2019-12-22 12:30 | NUR ---
SPOKE TO CUTTING MACHINE TENDERTEDDY CONNOR REGARDING REPOSITIONING OF DUBHOFF, THE CHEST XRAY DONE TODAY SHOWS THE DUBHOFF IS COILED. IR WILL NOT REPOSITION DUBHOFF, NEEDS TO BE REMOVED AND REINSERTED
[2019-12-22] MEDS: FLUCONAZOLE 200 MG/NS 100 ML 100 ML IV SCH (12:34)
--- NOTE | 2019-12-22 12:45 | NUR ---
SPOKE WITH DR. BECKER REGARDING DUBHOFF. NEW ORDER DISCONTINUE DUBHOFF, NO NEED TO REINSERT AT THIS TIME
--- NOTE | 2019-12-22 13:00 | NUR ---
DUBHOFF DISCONTINUED WITH NO COMPLICATIONS.
[2019-12-22] MEDS: ACETAMINOPHEN 650 MG SUPPOSITORY RC SCH (13:30)
--- NOTE | 2019-12-22 14:00 | NUR ---
JEROD FOLLOW UP Pt continues with TPN. Noted, significant weight loss within one week. Recommend increase TPN rate to 85mls/hr. Recommendations placed in Pt chart. Continue IV Lipids --. JEROD to continue to monitor. Please notify as concerns arise. Thank you. Addendum: 12/22/19 at [address] Amended: Links added.
[2019-12-22] MEDS ORDERED: CLINIMIX E 5%-15% 2,000 ML IV ONE (21:30)
[2019-12-23] VITALS (12 sets, daily range): BP systolic 106–129; BP diastolic 73–88
[2019-12-23] MEDS: HYDROMORPHONE HCL 0.5 MG/0.5 ML ML IVP PRN ×3 (00:23→03:19)
[2019-12-23] MEDS: ZOSYN 3.375GM+NS 50ML 50 ML IV SCH ×4 (00:23→21:35)
--- NOTE | 2019-12-23 02:31 | NUR ---
NOTCHING MACHINE OPERATOR NIGHT CALLED PT STATES IS IN A LOT OF PAIN HR IS GOING UP PENDING CALL BACK
[2019-12-23] MEDS: METOPROLOL TARTRATE 1 MG/ML 5ML VIAL IV SCH ×2 (02:43)
[2019-12-23] MEDS ORDERED: HYDROMORPHONE HCL 2 MG/ML VIAL IVP ONE (03:15)
--- NOTE | 2019-12-23 03:17 | NUR ---
ONE TIME ORDER FOR DILAUDID 0.5 MG NOW TO GIVE BECAUSE PHARMACY HAS NOT APPROVED THE ORDER ENTERED OF SUCH ABOVE, DILAUDID WILL BE ADMINISTERED MD ORDERED NOW
[2019-12-23 04:53] LABS: BASOPHILS % (AUTO) 0.2 % (0.0-5.0); EOSINOPHILS % (AUTO) 2.3 % (0.0-8.0); HEMATOCRIT 33.7 % (42-54); LYMPHOCYTES % (AUTO) 10.2 % (21.0-51.0); MEAN CORPUSCULAR HGB CONC 31.8 g/dL (32.0-36.0); MEAN CORPUSCULAR VOLUME 88.2 fL (79-99); NEUTROPHILS % (AUTO) 79.4 % (40.0-77.0); PLATELET COUNT (AUTO) 467 K/uL (130-400); RED BLOOD CELL COUNT(AUTO) 3.82 MIL/uL (4.50-6.20); RED CELL DISTRIBUTION WIDTH 17.1 % (11.0-15.5); WHITE BLOOD COUNT (AUTO) 18.1 K/uL (4.8-10.8)
[2019-12-23 05:20] LABS: ALANINE AMINOTRANSFERASE 72 U/L (12-78); ALBUMIN 1.7 g/dL (3.5-5.0); ASPARTATE AMINOTRANSFERASE 30 U/L (10-37); BILIRUBIN,TOTAL 0.3 mg/dL (0.2-1.0); CARBON DIOXIDE 29 mmol/L (21-32); CHLORIDE 100 mmol/L (101-111); CREATINE KINASE, TOTAL 8 U/L (21-232); CREATININE 0.8 mg/dL (0.5-1.5); GLOMERULAR FILTR. RATE CALC 123 mL/min (>60); GLUCOSE,RANDOM 106 mg/dL (70-105); MYOGLOBIN 9 ng/mL (10-92); POTASSIUM 4.4 mmol/L (3.5-5.1); SODIUM SERUM 134 mmol/L (136-145); TOTAL PROTEIN, SERUM 6.6 g/dL (6.0-8.3); TROPONIN I < 0.04 ng/mL (0.00-0.06); UREA NITROGEN, BLOOD 18 mg/dL (7-18)
--- NOTE | 2019-12-23 05:39 | NUR ---
SPRAY II PAINTER TEAROOM HOST PAGED TO REPORT INCREASED IN WBC PENDING CALL BACK
--- NOTE | 2019-12-23 06:00 | NUR ---
SAND CARRIER ROUNDED ON PT STATED TO TRANSFER TO PCCU AND SOME CPOE ORDERS
[2019-12-23] MEDS ORDERED: HYDROMORPHONE 1 MG/1 ML AMP ONE (06:25)
--- NOTE | 2019-12-23 06:40 | NUR ---
PT TRANSFERRED TO PCCU FLOOR FULL REPORT GIVEN TO NURSE
--- NOTE | 2019-12-23 06:45 | NUR ---
PT TRANSFERRED FROM 3RD FLOOR VIA BED. PT AWAKE AND ALERT. DENIES PAIN AT THIS TIME. BED TO THE LOWEST LEVEL. CALL LIGHT WITHIN REACH. NEPHROSTOMY BAG WITH ABOUT 30ML. PICC LINE NO S/S INFECTION. RFA 20G INTACT AND PATENT. PENDING COVID RESULTS TO BE NEGATIVE, PENDING [facility] TO ACCEPT PT AFTER COVID NEGATIVE RESULTS AND TRANSFER TO THEIR FACILITY.
[2019-12-23] MEDS: HYDROMORPHONE 1 MG/1 ML AMP IVP PRN ×4 (08:20→18:45)
[2019-12-23] MEDS ORDERED: DILTIAZEM HCL 5 MG/ML 10 ML VIAL IV SCH (08:55)
[2019-12-23] MEDS: VANCOMYCIN 1GM+NS 250ML 250 ML IV SCH ×2 (09:30→20:30)
[2019-12-23] MEDS: DILTIAZEM HCL 180 MG CAP.SR.24H PO SCH (09:31)
[2019-12-23] MEDS: PANTOPRAZOLE 40 MG/VIAL IVP SCH ×2 (09:44→20:29)
[2019-12-23] MEDS: PAROXETINE HCL 20 MG TABLET PO SCH (09:45)
[2019-12-23] MEDS: METOPROLOL TARTRATE 1 MG/ML 5ML VIAL IV PRN (11:03)
[2019-12-23] MEDS: FLUCONAZOLE 200 MG/NS 100 ML 100 ML IV SCH (12:10)
[2019-12-23] MEDS: ACETAMINOPHEN 650 MG SUPPOSITORY RC SCH (13:30)
[2019-12-23] MEDS ORDERED: IOHEXOL-350 75 ML VIAL IV ONE (14:44)
--- NOTE | 2019-12-23 15:07 | NUR ---
U/S GD LT THORACENTESIS PROCEDURE PERFORMED BY DR Frederick ANTON. PUNCTURE SITE LT POSTERIOR BACK AND PATIENT TOLERATED PROCEDURE WELL. TOTAL REMOVED 600ML OF JOSE D COLORED FLUID. END OF PROCEDURE AT 1435. CATHETER REMOVED AND DRESSING APPLIED. NO BLEEDING NOTED. POST CHEST X-RAY TAKEN AND PENDING RESULTS. REPORT GIVEN TO Jae PARTIDA RN AND PATIENT TRANSPORTED TO CT VIA BED FOR CT EXAM THEN TO [facility] VIA BED. AAO X3 WITH NO C/O PAIN.
[2019-12-23] MEDS: FAT EMULSIONS 20% 250ML 250 ML IV SCH (15:55)
[2019-12-23] MEDS: KETOROLAC TROMETHAMINE 15MG/ML IV PRN ×2 (17:21→23:54)
[2019-12-23] MEDS: ACETAMINOPHEN 325 MG TAB PO PRN ×2 (17:22→23:55)
[2019-12-23] MEDS ORDERED: CLINIMIX E 5%-15% 2,000 ML IV ONE (17:30)
[2019-12-23] MEDS: SODIUM CHLORIDE 0.9% 500ML 500 ML IV SCH ×2 (20:29→22:00)
[2019-12-23] MEDS ORDERED: SODIUM CHLORIDE 0.9% 500ML 500 ML IV SCH (22:00)
[2019-12-24] MEDS: HYDROMORPHONE 1 MG/1 ML AMP IVP PRN ×5 (01:55→23:00)
[2019-12-24 04:00] VITALS: BP 119/77
--- NOTE | 2019-12-24 04:46 | NUR ---
PT A/OX3. C/O PAIN TO ABDOMEN. REFUSING TO USE INCENTIVE SPIROMETER. WEAK COUGH NOTED. HAS DIMINISHED LUNG SOUNDS. NO DRAINAGE FROM THORACENTESIS SITE. NEPHROSTOMY DRAINING. PATIENT C/O NAUSEA AND VOMITING. PATIENT'S DIET IS ICE CHIPS ONLY. NON COMPLIANT WITH DIET. CONTINUES TO DRINK WATER AND HAVE STOMACH PAIN.
[2019-12-24] MEDS: ZOSYN 3.375GM+NS 50ML 50 ML IV SCH (06:05)
[2019-12-24] MEDS: KETOROLAC TROMETHAMINE 15MG/ML IV PRN ×3 (06:38→17:06)
[2019-12-24 07:30] VITALS: BP 129/76
[2019-12-24] MEDS: VANCOMYCIN 1GM+NS 250ML 250 ML IV SCH (08:28)
[2019-12-24] MEDS: DILTIAZEM HCL 180 MG CAP.SR.24H PO SCH (08:29)
[2019-12-24] MEDS: PAROXETINE HCL 20 MG TABLET PO SCH (08:29)
[2019-12-24] MEDS: PANTOPRAZOLE 40 MG/VIAL IVP SCH ×2 (08:29→21:38)
[2019-12-24 08:58] LABS: BASOPHILS % (AUTO) 0.2 % (0.0-5.0); EOSINOPHILS % (AUTO) 0.2 % (0.0-8.0); LYMPHOCYTES % (AUTO) 4.2 % (21.0-51.0); MEAN CORPUSCULAR HEMOGLOBIN 28.4 pg (27.0-33.0); MEAN CORPUSCULAR HGB CONC 32.4 g/dL (32.0-36.0); MEAN CORPUSCULAR VOLUME 87.9 fL (79-99); MONOCYTES % (AUTO) 3.2 % (3.0-13.0); NEUTROPHILS % (AUTO) 90.9 % (40.0-77.0); PLATELET COUNT (AUTO) 352 K/uL (130-400); RED BLOOD CELL COUNT(AUTO) 3.87 MIL/uL (4.50-6.20); RED CELL DISTRIBUTION WIDTH 17.3 % (11.0-15.5); WHITE BLOOD COUNT (AUTO) 21.4 K/uL (4.8-10.8)
[2019-12-24 09:14] LABS: ALBUMIN 1.3 g/dL (3.5-5.0); BILIRUBIN,DIRECT 0.2 mg/dL (0.0-0.3); BILIRUBIN,TOTAL 0.5 mg/dL (0.2-1.0); CREATININE 1.6 mg/dL (0.5-1.5); MAGNESIUM 1.7 mg/dL (1.80-2.40); POTASSIUM 4.3 mmol/L (3.5-5.1); TOTAL PROTEIN, SERUM 5.7 g/dL (6.0-8.3)
[2019-12-24] MEDS: ONDANSETRON HCL 4 MG/2 ML VIAL IVP PRN (10:24)
[2019-12-24 11:30] VITALS: BP 111/73
[2019-12-24] MEDS: ACETAMINOPHEN 650 MG SUPPOSITORY RC SCH (12:38)
[2019-12-24] MEDS: FLUCONAZOLE 200 MG/NS 100 ML 100 ML IV SCH (12:41)
[2019-12-24] MEDS: MEROPENEM 1 GM VIAL IVP SCH ×2 (13:46→21:38)
[2019-12-24 15:00] VITALS: BP 117/70
--- NOTE | 2019-12-24 17:00 | NUR ---
TRANSFER CALLED [facility] AND SPOKE TO PATRICIO (OPTIONS ADVISOR), INFORMED HER OF PATIENT'S NEGATIVE TEST RESULT WHICH WAS PENDING FOR THE TRANSFER. SHE STATED THAT THERE'S NO AVAILABLE BED ON THE APPROPRIATE FLOOR. SHE SAID TO TRY AGAIN TOMORROW, PRIMARY NURSE INFORMED.
[2019-12-24 19:29] VITALS: BP 123/61
--- NOTE | 2019-12-24 20:00 | NUR ---
Patient had two medications at bedside during shift change. Did not take Cardizem or Paxil. Heart rate is 115-120s.
[2019-12-24] MEDS: ENOXAPARIN SODIUM 30 MG/0.3 ML SQ SCH (21:42)
[2019-12-24] MEDS: METOPROLOL TARTRATE 1 MG/ML 5ML VIAL IV PRN (21:50)
[2019-12-24 23:58] VITALS: BP 108/58
[2019-12-25] MEDS: DEXTROSE 5 % AND 0.9 % NACL 1,000 ML IV SCH ×2 (02:49→13:54)
[2019-12-25] MEDS: METOPROLOL TARTRATE 1 MG/ML 5ML VIAL IV PRN ×3 (02:50→22:06)
[2019-12-25] MEDS: KETOROLAC TROMETHAMINE 15MG/ML IV PRN ×2 (03:11→20:54)
[2019-12-25 04:00] VITALS: BP 108/56
--- NOTE | 2019-12-25 04:36 | NUR ---
Patient tachy 120-130s around 2100. Administered ordered medication for increased heart rate. Heart rate lowered to 110-115.
[2019-12-25 04:54] LABS: CREATININE 2.1 mg/dL (0.5-1.5); MAGNESIUM 1.7 mg/dL (1.80-2.40)
[2019-12-25] MEDS: HYDROMORPHONE 1 MG/1 ML AMP IVP PRN ×5 (04:55→21:59)
[2019-12-25] MEDS: MEROPENEM 1 GM VIAL IVP SCH ×3 (05:00→21:56)
[2019-12-25] MEDS ORDERED: VANCOMYCIN 1GM+NS 250ML 250 ML IV SCH (06:00)
[2019-12-25 07:30] VITALS: BP 115/63
[2019-12-25] MEDS: DILTIAZEM HCL 180 MG CAP.SR.24H PO SCH (08:13)
[2019-12-25] MEDS: PANTOPRAZOLE SODIUM 40 MG TABLET.DR PO SCH ×3 (08:13→21:57)
[2019-12-25] MEDS: ENOXAPARIN SODIUM 30 MG/0.3 ML SQ SCH (08:14)
[2019-12-25] MEDS: ONDANSETRON HCL 4 MG/2 ML VIAL IVP PRN ×3 (08:28→20:55)
[2019-12-25 11:30] VITALS: BP 123/61
[2019-12-25] MEDS: FLUCONAZOLE 200 MG/NS 100 ML 100 ML IV SCH (11:32)
[2019-12-25] MEDS: ACETAMINOPHEN 650 MG SUPPOSITORY RC SCH (11:32)
--- NOTE | 2019-12-25 11:54 | NUR ---
CHART REVIEWED CM to assist with aftercare needs when requested.
--- NOTE | 2019-12-25 15:00 | NUR ---
TRANSFER PLACED A CALL TO [facility], SPOKE WITH PATERSON SEAT PACK INSPECTOR FOLLOWING UP ON PENDING TRANSFER. SHE STATED THAT THERE'S STILL NO BEDS ON THE APPROPRIATE FLOOR AND ALSO PATIENT NEEDS ADMINISTRATION APPROVAL WHICH WILL INITIATED TOMORROW (THURSDAY). PRIMARY NURSE NOTIFIED
[2019-12-25 15:30] VITALS: BP 109/59
[2019-12-25] MEDS ORDERED: CLINIMIX E 5%-15% 2,000 ML IV ONE (17:00)
[2019-12-25 17:24] LABS: BASOPHILS % (AUTO) 0.1 % (0.0-5.0); EOSINOPHILS % (AUTO) 0.2 % (0.0-8.0); HEMATOCRIT 25.1 % (42-54); MEAN CORPUSCULAR HEMOGLOBIN 28.5 pg (27.0-33.0); MEAN CORPUSCULAR HGB CONC 32.7 g/dL (32.0-36.0); MEAN CORPUSCULAR VOLUME 87.2 fL (79-99); NEUTROPHILS % (AUTO) 87.8 % (40.0-77.0); PLATELET COUNT (AUTO) 374 K/uL (130-400); RED BLOOD CELL COUNT(AUTO) 2.88 MIL/uL (4.50-6.20); RED CELL DISTRIBUTION WIDTH 17.8 % (11.0-15.5); WHITE BLOOD COUNT (AUTO) 22.3 K/uL (4.8-10.8)
[2019-12-25 17:32] LABS: CREATININE 2.1 mg/dL (0.5-1.5); MAGNESIUM 1.7 mg/dL (1.80-2.40); POTASSIUM 5.3 mmol/L (3.5-5.1)
[2019-12-25] MEDS: MAGNESIUM 2GM PREMIX 50ML 50 ML IV PRN (17:51)
[2019-12-25 19:57] VITALS: BP 139/76
[2019-12-25 23:36] VITALS: BP 115/66
[2019-12-26] MEDS: HYDROMORPHONE 1 MG/1 ML AMP IVP PRN ×7 (02:15→23:49)
[2019-12-26] MEDS: ONDANSETRON HCL 4 MG/2 ML VIAL IVP PRN ×3 (03:13→21:57)
[2019-12-26 04:15] VITALS: BP 117/66
[2019-12-26] MEDS: KETOROLAC TROMETHAMINE 15MG/ML IV PRN (04:57)
[2019-12-26] MEDS: DEXTROSE 5 % AND 0.9 % NACL 1,000 ML IV SCH ×2 (06:08→15:36)
[2019-12-26] MEDS: MEROPENEM 1 GM VIAL IVP SCH ×3 (06:09→21:57)
[2019-12-26 08:00] VITALS: BP 120/69
[2019-12-26 08:12] LABS: CREATININE 1.9 mg/dL (0.5-1.5); POTASSIUM 4.6 mmol/L (3.5-5.1)
[2019-12-26] MEDS: PANTOPRAZOLE SODIUM 40 MG TABLET.DR PO SCH ×2 (08:52→20:39)
[2019-12-26] MEDS: DILTIAZEM HCL 180 MG CAP.SR.24H PO SCH (08:53)
[2019-12-26] MEDS: ENOXAPARIN SODIUM 30 MG/0.3 ML SQ SCH (08:54)
[2019-12-26] MEDS: FAT EMULSIONS 20% 250ML 250 ML IV SCH (09:00)
--- NOTE | 2019-12-26 10:30 | NUR ---
TRANSFER PLACED A CALL TO R FOLLOWING UP ON THE TRANSFER FOR PATIENT FOR HIGHER LEVEL OF CARE. SPOKE WITH LADI APPLICATION CHEMIST, INFORMED HER THE COVID 19 TEST DONE WAS NEGATIVE REQUESTED BY [facility]. AWAITING CALL BACK.
[2019-12-26] MEDS: FLUCONAZOLE 200 MG/NS 100 ML 100 ML IV SCH ×2 (11:45→14:09)
[2019-12-26 11:58] VITALS: BP 135/70
--- NOTE | 2019-12-26 15:00 | NUR ---
TRANSFER RECEIVED A CALL FROM LADI [facility] CONTRACT SERVICEMAN STATING THAT DR. PATEL WILL ACCEPT PT IF IT IS A 2 WAY TRANSFER. THE PT NEEDS TO GO TO [facility] HAVE THE DRAIN PUT IN THEN COME BACK. SHE ASLO WANTED A PROMISSORY NOTE SENT THAT WE WILL TAKE THE PATIENT BACK. INFORMATION GIVEN TO DIRECTOR OF PCCU, CM AND CNO. PROMISSORY NOTE FAXED AND ALSO SCANNED TO LADI.
--- NOTE | 2019-12-26 15:17 | NUR ---
RD FOLLOW UP Pt continues with TPN +IV lipid emulsion, Pending [facility] transfer for higher level of care. Pt with no additional weight loss. Recommend continue TPN. RD to continue to monitor Pt weights, I/O, nutritional lab values. Please notify as additional nutrition concerns arise. Thank you. Addendum: 12/26/19 at [address] Amended: Links added.
--- NOTE | 2019-12-26 15:30 | NUR ---
TRANSFER RECEIVED A CALL FROM LADI Lilian PERSONAL LINES ACCOUNT MANAGER SHE STATED THAT THE PROMISSORY NOTE IS NOT ADEQUATE. IT NEEDS TO STATE THAT WE WILL PAY FOR THE PROCEDURE AND ANY ASSOCIATED FEES THAT COME WITH THE CARE OF THE PATIENT. SHE SENT ME A SAMPLE OF THE LETTER IN AN EMAIL AND IT WAS FORWARDED TO ADMINISTRATION. AWAITING RESPONSE
[2019-12-26] MEDS: METOPROLOL TARTRATE 1 MG/ML 5ML VIAL IV PRN (15:36)
[2019-12-26 15:45] VITALS: BP 133/71
[2019-12-26 16:21] LABS: CREATININE,URINE RANDOM 60 mg/dL (30-135); SODIUM,URINE RANDOM 16 mmol/l (40-220)
--- NOTE | 2019-12-26 16:23 | NUR ---
Kamilla BAUGH CORRECTIONAL CLASSIFICATION COUNSELOR, IN ROOM SPEAKING WITH PT. RE:PLAN OF CARE.
[2019-12-26] MEDS ORDERED: CLINIMIX E 5%-15% 2,000 ML IV ONE (17:00)
[2019-12-26] MEDS ORDERED: METOPROLOL TARTRATE 25 MG TAB PO SCH (18:15)
[2019-12-26 20:00] VITALS: BP 131/61
[2019-12-26 23:49] VITALS: BP 122/55
[2019-12-27] MEDS: HYDROMORPHONE 1 MG/1 ML AMP IVP PRN ×7 (03:10→22:38)
[2019-12-27 04:00] VITALS: BP 132/72
[2019-12-27] MEDS: MEROPENEM 1 GM VIAL IVP SCH ×3 (05:40→21:40)
[2019-12-27] MEDS: DEXTROSE 5 % AND 0.9 % NACL 1,000 ML IV SCH ×2 (05:40→18:40)
[2019-12-27] MEDS: ONDANSETRON HCL 4 MG/2 ML VIAL IVP PRN ×3 (05:40→19:41)
[2019-12-27 06:12] LABS: BASOPHILS % (AUTO) 0.1 % (0.0-5.0); EOSINOPHILS % (AUTO) 0.2 % (0.0-8.0); LYMPHOCYTES % (AUTO) 6.9 % (21.0-51.0); MEAN CORPUSCULAR HEMOGLOBIN 28.2 pg (27.0-33.0); MEAN CORPUSCULAR HGB CONC 31.8 g/dL (32.0-36.0); MEAN CORPUSCULAR VOLUME 88.5 fL (79-99); MONOCYTES % (AUTO) 8.6 % (3.0-13.0); NEUTROPHILS % (AUTO) 83.1 % (40.0-77.0); PLATELET COUNT (AUTO) 357 K/uL (130-400); RED BLOOD CELL COUNT(AUTO) 2.27 MIL/uL (4.50-6.20); RED CELL DISTRIBUTION WIDTH 18.1 % (11.0-15.5); WHITE BLOOD COUNT (AUTO) 17.8 K/uL (4.8-10.8)
[2019-12-27 06:33] LABS: BILIRUBIN,TOTAL 1.1 mg/dL (0.2-1.0); CREATININE 1.6 mg/dL (0.5-1.5); TOTAL PROTEIN, SERUM 4.7 g/dL (6.0-8.3)
[2019-12-27 06:44] LABS: CRP QUANTITATIVE 333.6 mg/L (0.00-9.0); HEMATOCRIT 20.1 % (42-54)
--- NOTE | 2019-12-27 06:58 | NUR ---
HGB: 6.4 ; Hct: 20.1 Called legal entity controller hospitalist. No return call yet up to this time (0714). Am shift RN made aware.
[2019-12-27 07:11] LABS: ERYTHROCYTE SEDIMENTATION RATE 65 MM/HR (0-15)
--- NOTE | 2019-12-27 07:20 | NUR ---
[facility] SPOKE TO CYDNEY MANI REQUESTING UPDATE ON TRANSFER; [facility] WILL CALL US BACK WHEN BED AVAILABLE Addendum: 12/27/19 at 0917 by OLIVER VIGIL RN RN INCORRECT INFO ENTERED; PT NOT TRANSFERRING TO [facility]
[2019-12-27] MEDS: PANTOPRAZOLE SODIUM 40 MG TABLET.DR PO SCH ×2 (07:48→19:40)
[2019-12-27] MEDS: METOPROLOL SUCCINATE 50 MG TAB.SR.24H PO SCH (07:48)
[2019-12-27] MEDS: ENOXAPARIN SODIUM 30 MG/0.3 ML SQ SCH (07:49)
[2019-12-27 08:22] LABS: HEMATOCRIT 18.4 % (42-54)
--- NOTE | 2019-12-27 08:28 | NUR ---
[facility] CALLED [facility] MERCHANDISE DELIVERER LADI LOZADA AT [phone] AND LEFT VOICE MAIL MESSAGE
[2019-12-27 08:39] VITALS: BP 119/70
[2019-12-27] MEDS: FLUCONAZOLE 200 MG/NS 100 ML 100 ML IV SCH (10:58)
[2019-12-27 11:46] VITALS: BP 125/76
--- NOTE | 2019-12-27 14:26 | NUR ---
CADYR SPOKE WITH YOVANY AT TRANSFER CENTER. DR GOMEZ WILL ACCEPT PATIENT. PT WILL GO THROUGH IR DEPT. WILL TAKE PATIENT WITHOUT QUOTE ON PROMISSORY NOTE. REQUESTING NOTE AND COVID RESULTS BE FAXED TO HER ATTN AT [phone]
--- NOTE | 2019-12-27 15:14 | NUR ---
Ambulance quotes: Called [facility] at [phone]. Dispatch transferred call to billing. No answer. Left VM with call back #. Called [place] at [phone]. No answer. Left VM. Called Radha. Kami transferred call to [facility] in Billing. No answer. Left VM. Spoke to Nette guo/ JAIDEN. States trip to [facility] is $614.59 and round trip will be $1,229.18 if done same day.
--- NOTE | 2019-12-27 15:19 | NUR ---
[facility] Received call from Chel with [facility]. Quote is $672.81 to transport patient from [facility] to [facility] with tele monitoring.
[2019-12-27 16:12] VITALS: BP 137/82
[2019-12-27] MEDS ORDERED: CLINIMIX E 5%-15% 2,000 ML IV ONE (17:00)
[2019-12-27 20:02] VITALS: BP 141/90
[2019-12-27 23:37] VITALS: BP 145/83
[2019-12-28] MEDS: HYDROMORPHONE 1 MG/1 ML AMP IVP PRN ×8 (01:46→22:49)
[2019-12-28] MEDS: ONDANSETRON HCL 4 MG/2 ML VIAL IVP PRN ×4 (01:46→19:44)
[2019-12-28 03:49] VITALS: BP 141/89
[2019-12-28] MEDS: MEROPENEM 1 GM VIAL IVP SCH ×3 (05:01→22:48)
[2019-12-28 05:16] LABS: BASOPHILS % (AUTO) 0.2 % (0.0-5.0); EOSINOPHILS % (AUTO) 0.4 % (0.0-8.0); HEMATOCRIT 26.7 % (42-54); LYMPHOCYTES % (AUTO) 8.2 % (21.0-51.0); MEAN CORPUSCULAR HEMOGLOBIN 28.6 pg (27.0-33.0); MEAN CORPUSCULAR HGB CONC 33.3 g/dL (32.0-36.0); MEAN CORPUSCULAR VOLUME 85.9 fL (79-99); MONOCYTES % (AUTO) 11.7 % (3.0-13.0); NEUTROPHILS % (AUTO) 77.8 % (40.0-77.0); PLATELET COUNT (AUTO) 374 K/uL (130-400); RED BLOOD CELL COUNT(AUTO) 3.11 MIL/uL (4.50-6.20); RED CELL DISTRIBUTION WIDTH 16.5 % (11.0-15.5); WHITE BLOOD COUNT (AUTO) 16.1 K/uL (4.8-10.8)
[2019-12-28 05:56] LABS: CREATININE 1.4 mg/dL (0.5-1.5); POTASSIUM 4.6 mmol/L (3.5-5.1); TOTAL PROTEIN, SERUM 4.9 g/dL (6.0-8.3)
[2019-12-28 08:00] VITALS: BP 146/94
[2019-12-28] MEDS: DEXTROSE 5 % AND 0.9 % NACL 1,000 ML IV SCH ×2 (08:00→23:47)
[2019-12-28] MEDS: PANTOPRAZOLE SODIUM 40 MG TABLET.DR PO SCH ×2 (08:43→19:40)
[2019-12-28] MEDS: FAT EMULSIONS 20% 250ML 250 ML IV SCH (08:43)
[2019-12-28] MEDS: METOPROLOL SUCCINATE 50 MG TAB.SR.24H PO SCH (08:43)
[2019-12-28 11:27] VITALS: BP 151/97
--- NOTE | 2019-12-28 11:39 | NUR ---
TRANSFER Called [facility] and they still need a promissory note before they take him. I asked if it can be a same day procedure, but the communication coordinator believes the patient may need to stay for a night if there are no complications. Spoke with Coreen communication coordinator
[2019-12-28] MEDS: FLUCONAZOLE 200 MG/NS 100 ML 100 ML IV SCH (14:23)
[2019-12-28 16:00] VITALS: BP 150/99
[2019-12-28] MEDS ORDERED: CLINIMIX E 5%-15% 2,000 ML IV SCH (16:30)
[2019-12-28 20:00] VITALS: BP 142/92
[2019-12-28] MEDS: HYDROMORPHONE HCL 2 MG/ML VIAL IVP PRN (23:47)
[2019-12-29] VITALS (7 sets, daily range): BP systolic 130–147; BP diastolic 87–101
[2019-12-29] MEDS: HYDROMORPHONE HCL 2 MG/ML VIAL IVP PRN ×8 (02:03→22:44)
[2019-12-29 04:31] LABS: BASOPHILS % (AUTO) 0.3 % (0.0-5.0); EOSINOPHILS % (AUTO) 1.6 % (0.0-8.0); HEMATOCRIT 26.7 % (42-54); MEAN CORPUSCULAR HEMOGLOBIN 28.7 pg (27.0-33.0); MONOCYTES % (AUTO) 12.7 % (3.0-13.0); NEUTROPHILS % (AUTO) 72.1 % (40.0-77.0); PLATELET COUNT (AUTO) 346 K/uL (130-400); RED BLOOD CELL COUNT(AUTO) 3.07 MIL/uL (4.50-6.20); RED CELL DISTRIBUTION WIDTH 16.3 % (11.0-15.5); WHITE BLOOD COUNT (AUTO) 12.7 K/uL (4.8-10.8)
[2019-12-29 04:53] LABS: BILIRUBIN,TOTAL 1.8 mg/dL (0.2-1.0); CREATININE 1.2 mg/dL (0.5-1.5); POTASSIUM 4.4 mmol/L (3.5-5.1); TOTAL PROTEIN, SERUM 4.9 g/dL (6.0-8.3)
[2019-12-29 05:39] LABS: CRP QUANTITATIVE 229.2 mg/L (0.00-9.0)
[2019-12-29] MEDS: MEROPENEM 1 GM VIAL IVP SCH ×3 (05:43→22:43)
[2019-12-29] MEDS: ONDANSETRON HCL 4 MG/2 ML VIAL IVP PRN ×3 (05:54→20:29)
[2019-12-29] MEDS: PANTOPRAZOLE SODIUM 40 MG TABLET.DR PO SCH ×2 (08:54→19:56)
[2019-12-29] MEDS: METOPROLOL SUCCINATE 50 MG TAB.SR.24H PO SCH (08:55)
--- NOTE | 2019-12-29 10:00 | NUR ---
ON ROUNDS INFORMED MD PATIENT UNABLE TO TOLERATE THE WHOLE 3 HOURS BEFORE NEEDING PAIN MED AGAIN . NO NEW ORDERS GIVEN . WILL CONT TO MONITOR
[2019-12-29] MEDS: DEXTROSE 5 % AND 0.9 % NACL 1,000 ML IV SCH (12:03)
[2019-12-29] MEDS: FLUCONAZOLE 200 MG/NS 100 ML 100 ML IV SCH (12:03)
[2019-12-29] MEDS ORDERED: CLINIMIX E 5%-15% 2,000 ML IV SCH (14:45)
[2019-12-29] MEDS: ACETAMINOPHEN 325 MG TAB PO PRN (19:56)
[2019-12-30] MEDS: HYDROMORPHONE HCL 2 MG/ML VIAL IVP PRN ×8 (00:55→22:06)
[2019-12-30] MEDS: DEXTROSE 5 % AND 0.9 % NACL 1,000 ML IV SCH ×3 (02:54→22:00)
[2019-12-30 03:57] VITALS: BP 152/87
[2019-12-30] MEDS: MEROPENEM 1 GM VIAL IVP SCH ×3 (05:09→21:44)
[2019-12-30] MEDS: ONDANSETRON HCL 4 MG/2 ML VIAL IVP PRN (05:10)
[2019-12-30 05:32] LABS: BASOPHILS % (AUTO) 0.4 % (0.0-5.0); EOSINOPHILS % (AUTO) 2.5 % (0.0-8.0); HEMATOCRIT 29.6 % (42-54); LYMPHOCYTES % (AUTO) 10.4 % (21.0-51.0); MEAN CORPUSCULAR HEMOGLOBIN 27.9 pg (27.0-33.0); MEAN CORPUSCULAR HGB CONC 32.1 g/dL (32.0-36.0); MEAN CORPUSCULAR VOLUME 87.1 fL (79-99); MONOCYTES % (AUTO) 12.8 % (3.0-13.0); NEUTROPHILS % (AUTO) 69.4 % (40.0-77.0); PLATELET COUNT (AUTO) 269 K/uL (130-400); WHITE BLOOD COUNT (AUTO) 13.7 K/uL (4.8-10.8)
[2019-12-30 05:51] LABS: BILIRUBIN,TOTAL 2.5 mg/dL (0.2-1.0); POTASSIUM 4.3 mmol/L (3.5-5.1); TOTAL PROTEIN, SERUM 5.2 g/dL (6.0-8.3)
[2019-12-30 07:54] VITALS: BP 154/95
[2019-12-30] MEDS: SIMETHICONE 80 MG TAB.CHEW PO PRN (08:54)
[2019-12-30] MEDS: PANTOPRAZOLE SODIUM 40 MG TABLET.DR PO SCH ×2 (08:54→21:44)
[2019-12-30] MEDS: METOPROLOL SUCCINATE 50 MG TAB.SR.24H PO SCH (08:54)
--- NOTE | 2019-12-30 11:10 | NUR ---
transfer spoke with R intake nurse Pooja update on pts vitals signs and covid result sent as requested, still pending letter from Administration and a bed . respiratory therapy manager made aware of pending letter and working on it. Bhavesh marmolejo
[2019-12-30 11:23] VITALS: BP 145/97
[2019-12-30] MEDS: FLUCONAZOLE 200 MG/NS 100 ML 100 ML IV SCH (12:16)
[2019-12-30] MEDS: FAT EMULSIONS 20% 250ML 250 ML IV SCH (14:12)
[2019-12-30 16:00] VITALS: BP 143/92
--- NOTE | 2019-12-30 16:50 | NUR ---
DR. HEATON AWARE OF PT HAVING PAIN THAT IS NOT CONTROLLED, STATES CONTINUE WITH SAME DOSE AND FREQUENCY FOR NOW.
[2019-12-30 19:33] VITALS: BP 145/92
[2019-12-30] MEDS ORDERED: CLINIMIX E 5%-15% 2,000 ML IV SCH (20:00)
[2019-12-30 23:54] VITALS: BP 140/91
[2019-12-31] MEDS: HYDROMORPHONE HCL 2 MG/ML VIAL IVP PRN ×5 (02:21→20:41)
[2019-12-31 04:07] VITALS: BP 145/90
[2019-12-31] MEDS: MEROPENEM 1 GM VIAL IVP SCH ×3 (06:40→20:41)
--- NOTE | 2019-12-31 07:10 | NUR ---
Informed lab patient needs to be drawn. No blood return PICC line
[2019-12-31 07:36] LABS: BASOPHILS % (AUTO) 0.4 % (0.0-5.0); EOSINOPHILS % (AUTO) 2.6 % (0.0-8.0); HEMATOCRIT 28.7 % (42-54); LYMPHOCYTES % (AUTO) 10.6 % (21.0-51.0); MEAN CORPUSCULAR HEMOGLOBIN 28.5 pg (27.0-33.0); MEAN CORPUSCULAR HGB CONC 32.1 g/dL (32.0-36.0); MEAN CORPUSCULAR VOLUME 88.9 fL (79-99); MONOCYTES % (AUTO) 11.3 % (3.0-13.0); NEUTROPHILS % (AUTO) 71.7 % (40.0-77.0); PLATELET COUNT (AUTO) 209 K/uL (130-400); RED BLOOD CELL COUNT(AUTO) 3.23 MIL/uL (4.50-6.20); WHITE BLOOD COUNT (AUTO) 10.9 K/uL (4.8-10.8)
[2019-12-31] MEDS: PANTOPRAZOLE SODIUM 40 MG TABLET.DR PO SCH ×2 (07:40→20:42)
[2019-12-31] MEDS: METOPROLOL SUCCINATE 50 MG TAB.SR.24H PO SCH (07:40)
[2019-12-31 07:53] LABS: ALBUMIN 0.9 g/dL (3.5-5.0); BILIRUBIN,TOTAL 1.5 mg/dL (0.2-1.0); POTASSIUM 3.9 mmol/L (3.5-5.1)
[2019-12-31 07:58] VITALS: BP 138/85
--- NOTE | 2019-12-31 08:00 | NUR ---
ASSESSMENT PT IS AAOX3 DENIES CP DENIES NV DENIES SOB. BREATHING PATTERN IS EVEN AND UNLABORED. NO VISIBLE SIGNS OF DISTRESS NOTED, CALL LIGHT WITHIN REACH.
[2019-12-31] MEDS: FLUCONAZOLE 200 MG/NS 100 ML 100 ML IV SCH (10:33)
[2019-12-31 12:00] VITALS: BP 129/77
--- NOTE | 2019-12-31 12:10 | NUR ---
transfer pending administrative letter sent to R intake nurse Pooja pending a call back. Bhavesh marmolejo
[2019-12-31] MEDS: DEXTROSE 5 % AND 0.9 % NACL 1,000 ML IV SCH (14:07)
--- NOTE | 2019-12-31 15:39 | NUR ---
1355 Pooja Lilian intake nurse call back pending records administrator physicians approval mean while requesting updated progress notes. 1535 chart reviewed and progress notes e-mail as requested. Bhavesh marmolejo
[2019-12-31 16:00] VITALS: BP 146/93
--- NOTE | 2019-12-31 19:25 | NUR ---
PATIENT A/0X3, RESTING IN BED. NO SIGNS OF DISTRESS. DENIES CHEST PAIN OR SOB. DOES C/O PAIN AND TENDERNESS TO THE ABDOMEN. NO GUARDING OF ABDOMEN AND FACE STOIC. NEPHROSTOMY TUBE IN PLACE DRAINING URINE. PICC LINE TO JUSTIN, GOOD BLOOD RETURN TODAY. SWELLING TO JUSTIN. WILL CONTINUE TO MONITOR.
[2019-12-31 19:30] VITALS: BP 109/76
[2019-12-31] MEDS ORDERED: CLINIMIX E 5%-15% 2,000 ML IV SCH (20:30)
[2019-12-31 23:47] VITALS: BP_SYST 141; BP_SYST 143; BP_DIAS 86; BP_DIAS 92
[2020-01-01] MEDS: HYDROMORPHONE HCL 2 MG/ML VIAL IVP PRN ×6 (02:01→21:21)
[2020-01-01 04:00] VITALS: BP 136/89
[2020-01-01] MEDS: MEROPENEM 1 GM VIAL IVP SCH ×3 (06:22→20:48)
[2020-01-01] MEDS: DEXTROSE 5 % AND 0.9 % NACL 1,000 ML IV SCH ×2 (06:22→20:48)
[2020-01-01 08:00] VITALS: BP 126/85
[2020-01-01] MEDS: METOPROLOL SUCCINATE 50 MG TAB.SR.24H PO SCH (10:25)
[2020-01-01] MEDS: PANTOPRAZOLE SODIUM 40 MG TABLET.DR PO SCH ×2 (10:25→20:48)
[2020-01-01] MEDS: CLINIMIX E 5%-15% 2,000 ML IV SCH ×2 (11:00→21:20)
[2020-01-01] MEDS: FLUCONAZOLE 200 MG/NS 100 ML 100 ML IV SCH (11:51)
[2020-01-01 11:58] VITALS: BP 134/73
[2020-01-01 16:00] VITALS: BP 136/81
[2020-01-01 19:39] VITALS: BP 145/98
[2020-01-01 23:44] VITALS: BP 135/97
[2020-01-02] MEDS: HYDROMORPHONE HCL 2 MG/ML VIAL IVP PRN ×2 (01:27→05:14)
--- NOTE | 2020-01-02 03:53 | NUR ---
PATIENT A/0X3. HE IS RESTING IN BED. NO SIGNS OF DISTRESS. DENIES CHEST PAIN OR SOB. DOES C/O PAIN AND TENDERNESS TO THE ABDOMEN AND CALLS FOR ORDERED PAIN MEDICATION. NO GUARDING OF ABDOMEN AND FACE STOIC AT ANY TIME DURING THE SHIFT. NEPHROSTOMY TUBE IN PLACE DRAINING URINE. PICC LINE TO JUSTIN, GOOD BLOOD RETURN TODAY. CONTINUE TO HAVE SWELLING WITHOUT PAIN OR REDNESS TO JUSTIN. WILL CONTINUE TO MONITOR.
[2020-01-02 03:57] VITALS: BP_SYST 122; BP_SYST 137; BP_DIAS 60; BP_DIAS 89
[2020-01-02 04:57] LABS: BASOPHILS % (AUTO) 0.1 % (0.0-5.0); EOSINOPHILS % (AUTO) 1.4 % (0.0-8.0); HEMATOCRIT 25.9 % (42-54); LYMPHOCYTES % (AUTO) 9.3 % (21.0-51.0); MEAN CORPUSCULAR HEMOGLOBIN 28.4 pg (27.0-33.0); MEAN CORPUSCULAR HGB CONC 32.4 g/dL (32.0-36.0); MEAN CORPUSCULAR VOLUME 87.5 fL (79-99); MONOCYTES % (AUTO) 9.2 % (3.0-13.0); NEUTROPHILS % (AUTO) 78.8 % (40.0-77.0); PLATELET COUNT (AUTO) 192 K/uL (130-400); RED BLOOD CELL COUNT(AUTO) 2.96 MIL/uL (4.50-6.20); RED CELL DISTRIBUTION WIDTH 15.6 % (11.0-15.5); WHITE BLOOD COUNT (AUTO) 13.9 K/uL (4.8-10.8)
[2020-01-02 05:06] LABS: CREATININE 0.7 mg/dL (0.5-1.5); POTASSIUM 3.9 mmol/L (3.5-5.1)
[2020-01-02] MEDS: MEROPENEM 1 GM VIAL IVP SCH ×3 (05:14→21:13)
[2020-01-02 08:00] VITALS: BP 141/90
[2020-01-02] MEDS ORDERED: HYDROMORPHONE 1 MG/1 ML AMP ONE ×3 (09:08→16:44)
[2020-01-02] MEDS: PANTOPRAZOLE SODIUM 40 MG TABLET.DR PO SCH ×2 (09:10→20:58)
[2020-01-02] MEDS: METOPROLOL SUCCINATE 50 MG TAB.SR.24H PO SCH (09:10)
[2020-01-02] MEDS: PAROXETINE HCL 20 MG TABLET PO SCH (09:10)
[2020-01-02] MEDS: FLUCONAZOLE 200 MG/NS 100 ML 100 ML IV SCH (11:53)
[2020-01-02] MEDS: FAT EMULSIONS 20% 250ML 250 ML IV SCH (11:53)
[2020-01-02 12:00] VITALS: BP 143/78
[2020-01-02] MEDS: DEXTROSE 5 % AND 0.9 % NACL 1,000 ML IV SCH (12:00)
[2020-01-02 16:00] VITALS: BP 144/104
[2020-01-02] MEDS ORDERED: CLINIMIX E 5%-15% 2,000 ML IV SCH (17:00)
--- NOTE | 2020-01-02 19:57 | NUR ---
Did not use picc line due to partial thrombus. Contacted hospitalist new orders received.
--- NOTE | 2020-01-02 20:12 | NUR ---
PICC-LINE OK TO USE PICC LINE PER DR. MORGAN. PATIENT STARTED ON LOVENOX 1MG/KG.
[2020-01-02 20:44] VITALS: BP 153/93
[2020-01-02] MEDS: HYDROMORPHONE 1 MG/1 ML AMP IVP PRN ×2 (20:58→23:44)
--- NOTE | 2020-01-02 21:10 | NUR ---
[address] for follow up on telemetry bed spoke to R intake nurse Ivana update on vital signs and lab result as requested will call back now awaiting call back primary nurse made aware. Bhavesh marmolejo
[2020-01-02] MEDS: ENOXAPARIN SODIUM 60 MG/0.6 ML SQ SCH (21:13)
[2020-01-03] VITALS (15 sets, daily range): BP systolic 129–148; BP diastolic 66–94
[2020-01-03] MEDS: METOPROLOL TARTRATE 1 MG/ML 5ML VIAL IV PRN ×2 (00:02→04:24)
[2020-01-03] MEDS ORDERED: HYDROMORPHONE HCL 2 MG/ML VIAL IVP STA ×2 (00:28→03:09)
[2020-01-03] MEDS ORDERED: HYDROMORPHONE HCL 0.5 MG/0.5 ML ML ONE (00:33)
[2020-01-03] MEDS ORDERED: SODIUM CHLORIDE 0.9% 500ML 500 ML IV STA (01:04)
[2020-01-03] MEDS ORDERED: SODIUM CHLORIDE 0.9% 500ML 500 ML IV ONE (01:06)
--- NOTE | 2020-01-03 01:30 | NUR ---
Heart rate Sinus Tach at 160's-180. Patient pale, diaphoretic but patient is Alert and Oriented to time and place, Ambulatory, and call light within reach. Patient complaining of Abdominal pain flare up. Contacted Hospitalist, new orders received and carried out. Patient stable, no distress noted. Will continue to monitor patient.
[2020-01-03] MEDS: HYDROMORPHONE 1 MG/1 ML AMP IVP PRN ×4 (02:55→08:45)
[2020-01-03 03:01] LABS: ABG BASE EXCESS 1.6 mmol/L (-2.0-3.0); ABG HCO3 25.1 mmol/L (21.0-28.0); ABG OXYGEN SATURATION 96.8 % (95.0-99.0); ABG PCO2 37 mmHg (35-48)
[2020-01-03 03:23] LABS: CREATININE 0.8 mg/dL (0.5-1.5); POTASSIUM 3.8 mmol/L (3.5-5.1)
[2020-01-03 03:36] LABS: BILIRUBIN,TOTAL 1.2 mg/dL (0.2-1.0); TOTAL PROTEIN, SERUM 4.4 g/dL (6.0-8.3); TROPONIN I 0.07 ng/mL (0.00-0.06)
[2020-01-03] MEDS: DEXTROSE 5 % AND 0.9 % NACL 1,000 ML IV SCH ×2 (04:27→10:40)
[2020-01-03 05:08] LABS: HEMATOCRIT 23.5 % (42-54); MEAN CORPUSCULAR HEMOGLOBIN 29.1 pg (27.0-33.0); MEAN CORPUSCULAR HGB CONC 32.3 g/dL (32.0-36.0); PLATELET COUNT (AUTO) 231 K/uL (130-400); RED BLOOD CELL COUNT(AUTO) 2.61 MIL/uL (4.50-6.20); RED CELL DISTRIBUTION WIDTH 15.5 % (11.0-15.5)
[2020-01-03 05:16] LABS: WHITE BLOOD COUNT (AUTO) 56.3 K/uL (4.8-10.8)
[2020-01-03] MEDS ORDERED: METOPROLOL TARTRATE 1 MG/ML 5ML VIAL IV SCH (05:30)
[2020-01-03 05:35] LABS: BAND NEUTROPHILS % (MANUAL) 20 % (0-2); LYMPHOCYTES % (MANUAL) 7 % (22-44); MAN.DIFF COMMENT-IMPRESSION MANUAL DIFFERENTIAL; MONOCYTES % (MANUAL) 3 % (2-9); PLATELET MORPHOLOGY COMMENT ADEQUATE; SEGMENTED NEUTROPHILS % 70 % (40-70)
--- NOTE | 2020-01-03 06:07 | NUR ---
Contacted cardiology will see patient today.
[2020-01-03] MEDS: MEROPENEM 1 GM VIAL IVP SCH ×3 (06:13→23:14)
--- NOTE | 2020-01-03 07:15 | NUR ---
REPORT 0619 REPORT RECEIVED FROM FER Vieira RN. 2500 REPORT GIVEN TO AVINASH ALLISON. 0453 PATIENT ARRIVED TO DAY PATIENT ROOM 16 VIA BED. TRANSFERRED TO ICU BED. BREATHING REGULAR AND UNLABORED ON 1 L NC. HR 150'S. BP WNL.
[2020-01-03] MEDS ORDERED: SODIUM CHLORIDE 0.9% 1000ML 1,000 ML IV ONE (08:15)
[2020-01-03] MEDS: PANTOPRAZOLE SODIUM 40 MG TABLET.DR PO SCH ×2 (08:17→21:20)
[2020-01-03] MEDS: METOPROLOL SUCCINATE 50 MG TAB.SR.24H PO SCH (08:17)
[2020-01-03] MEDS ORDERED: METOPROLOL TARTRATE 1 MG/ML 5ML VIAL IV PRN (09:45)
[2020-01-03] MEDS: ENOXAPARIN SODIUM 60 MG/0.6 ML SQ SCH ×2 (10:09→21:25)
[2020-01-03] MEDS: PAROXETINE HCL 20 MG TABLET PO SCH (10:09)
--- NOTE | 2020-01-03 10:30 | NUR ---
TRANSFER RECEIVED A CALL FROM LADI LOZADA FROM [facility], ADMINISTRATION HAS SIGNED THE PROMISSORY NOTE AND HAS ACCEPTED THE PATIENT PENDING A TELE BED. SHE WILL CALL ME BACK SOON A BED IS AVAILABLE.
--- NOTE | 2020-01-03 10:38 | NUR ---
[facility] Transfer Received call from Ivana guo/ . Informed CM that promissory note has been approved by their administrators. Informed patient upgraded to ICU. Per Ivana, it will be even harder to find a bed for patient. CD
[2020-01-03] MEDS: FLUCONAZOLE 200 MG/NS 100 ML 100 ML IV SCH (10:57)
[2020-01-03] MEDS: ONDANSETRON HCL 4 MG/2 ML VIAL IVP PRN (10:57)
[2020-01-03] MEDS ORDERED: DOXYCYCLINE 100MG+NS 250ML 250 ML IV SCH (11:30)
[2020-01-03] MEDS ORDERED: LACTATED RINGERS 1000ML 1,000 ML IV ONE (11:42)
[2020-01-03] MEDS ORDERED: HYDROMORPHONE HCL 2 MG/ML VIAL IVP PRN (11:45)
[2020-01-03] MEDS ORDERED: HYDROMORPHONE HCL 2 MG/ML VIAL IVP SCH (11:45)
[2020-01-03] MEDS: LACTATED RINGERS 1000ML 1,000 ML IV SCH ×3 (11:50→19:49)
--- NOTE | 2020-01-03 11:54 | NUR ---
DR MORGAN AT BEDSIDE- EXAMINES PT..ORDERS RECEIVED...IV LR WIDE OPEN, 2MG IV DILAUDID GIVEN, 1ST DOSE OF DOXYCYCLINE IV STARTED...
[2020-01-03] MEDS: LINEZOLID 600 MG/ISO-OSM 300 ML IV SCH ×2 (12:45→23:14)
[2020-01-03] MEDS ORDERED: DIATR MEGLU/DIATRIZOATE SODIUM 30 ML BOTTLE ONE (13:33)
[2020-01-03] MEDS ORDERED: PHARMACY COMMUNICATION MISC SCH (14:15)
[2020-01-03] MEDS: HYDROMORPHONE HCL 2 MG/ML VIAL IVP PRN ×3 (14:26→23:13)
[2020-01-03] MEDS ORDERED: CLINIMIX E 5%-15% 2,000 ML IV SCH (14:45)
[2020-01-03] MEDS ORDERED: COMPOUND IV MISC 1 EACH IVSOLN MISC PRN (15:00)
--- NOTE | 2020-01-03 15:09 | NUR ---
RD FOLLOW UP Pt continues with CLinimix 5/15% @85mls/hr, pending transfer to [facility]. Pt continues with abdominal pain. No recent weight loss x 1 week. Recommend continue TPN Regimen RD to continue to monitor Weight, I/Os. Please notify as nutritional concern arise. Thank you. Addendum: 01/03/20 at [address] Amended: Links added.
[2020-01-03] MEDS ORDERED: IOHEXOL-350 75 ML VIAL IV ONE (16:34)
[2020-01-03] MEDS: MICAFUNGIN 100MG+NS 100ML 100 ML IV SCH (17:24)
--- NOTE | 2020-01-03 17:33 | NUR ---
CT SCAN COMPLETED
--- NOTE | 2020-01-03 19:31 | NUR ---
HAND OFF REPORT GIVEN TO ENRIQUE DA SILVA
[2020-01-04] VITALS (19 sets, daily range): BP systolic 131–148; BP diastolic 81–101
[2020-01-04] MEDS: HYDROMORPHONE HCL 2 MG/ML VIAL IVP PRN ×5 (04:31→21:16)
[2020-01-04] MEDS: LACTATED RINGERS 1000ML 1,000 ML IV SCH ×2 (05:30→08:38)
[2020-01-04 06:24] LABS: CREATININE 0.7 mg/dL (0.5-1.5); POTASSIUM 4.1 mmol/L (3.5-5.1)
[2020-01-04 06:27] LABS: MAGNESIUM 1.2 mg/dL (1.80-2.40); PHOSPHORUS 2.6 mg/dL (2.5-4.9)
[2020-01-04 06:36] LABS: BASOPHILS % (AUTO) 0.1 % (0.0-5.0); EOSINOPHILS % (AUTO) 0.2 % (0.0-8.0); LYMPHOCYTES % (AUTO) 6.7 % (21.0-51.0); MEAN CORPUSCULAR HEMOGLOBIN 28.1 pg (27.0-33.0); MEAN CORPUSCULAR HGB CONC 31.3 g/dL (32.0-36.0); MEAN CORPUSCULAR VOLUME 89.9 fL (79-99); MONOCYTES % (AUTO) 7.8 % (3.0-13.0); NEUTROPHILS % (AUTO) 83.8 % (40.0-77.0); PLATELET COUNT (AUTO) 233 K/uL (130-400); RED BLOOD CELL COUNT(AUTO) 1.99 MIL/uL (4.50-6.20); RED CELL DISTRIBUTION WIDTH 15.8 % (11.0-15.5); WHITE BLOOD COUNT (AUTO) 20.3 K/uL (4.8-10.8)
[2020-01-04] MEDS: MAGNESIUM 2GM PREMIX 50ML 50 ML IV PRN (07:02)
[2020-01-04 07:09] LABS: HEMATOCRIT 17.9 % (42-54)
--- NOTE | 2020-01-04 07:16 | NUR ---
REPORT REPORT GIVEN TO MINA DA SILVA
--- NOTE | 2020-01-04 07:28 | NUR ---
H/H H/H AND RETURN CALL PENDING ENDORSED TO MINA DA SILVA
[2020-01-04] MEDS: METOPROLOL SUCCINATE 50 MG TAB.SR.24H PO SCH (08:30)
[2020-01-04] MEDS: MEROPENEM 1 GM VIAL IVP SCH ×2 (08:30→16:26)
[2020-01-04] MEDS: PANTOPRAZOLE SODIUM 40 MG TABLET.DR PO SCH (08:30)
[2020-01-04] MEDS ORDERED: SODIUM CHLORIDE 0.9% 500ML 500 ML IV ONE (08:54)
[2020-01-04] MEDS: ENOXAPARIN SODIUM 60 MG/0.6 ML SQ SCH (09:00)
[2020-01-04] MEDS: FAT EMULSIONS 20% 250ML 250 ML IV SCH (09:53)
[2020-01-04 10:40] LABS: INR 1.06 (0.85-1.15); PROTHROMBIN TIME 11.4 SEC (9.6-11.6)
[2020-01-04] MEDS: LINEZOLID 600 MG/ISO-OSM 300 ML IV SCH (12:18)
--- NOTE | 2020-01-04 12:20 | NUR ---
RE: LEFT CHEST TUBE PLACEMENT INFORMATION PRESENTED TO DR. DUARTE. DR. DUARTE STATES, "THIS IS AN ICU PATIENT. CHEST TUBE TO BE PLACED BY ICU DOCTORS."
--- NOTE | 2020-01-04 13:10 | NUR ---
U/S GUIDED LEFT CHEST 8 FR. PIGTAIL CATHETER PLACEMENT PROCEDURE PERFORMED BY DR. DUARTE AT PATIENT'S BEDSIDE. PUNCTURE SITE LEFT POSTERIOR BACK AND PATIENT TOLERATED PROCEDURE WELL. PLACED 8 FR. PIGTAIL CATHETER TO PLEURAVAC DRAINAGE CANISTER NOTED 125 MILLILITERS OF CLOUDY YELLOW PLEURAL FLUID. END OF PROCEDURE AT 1313. CATHETER SUTURED IN PLACE AND DRESSING APPLIED. NO BLEEDING NOTED. REPORT GIVEN TO AVINASH ENRIQUEZ ICU NURSE.
[2020-01-04] MEDS: MICAFUNGIN 100MG+NS 100ML 100 ML IV SCH (16:26)
[2020-01-04] MEDS ORDERED: CLINIMIX E 5%-15% 2,000 ML IV SCH (18:00)
--- NOTE | 2020-01-04 20:35 | NUR ---
REPORT CALLED TO AVINASH ARREOLA RECEIVING NURSE AT [facility].
--- NOTE | 2020-01-04 20:54 | NUR ---
1800 transfer request to R spoke to Ivana intake nurse which working on the icu bed, requesting update information with was e-mail and will call back. 1816 Ivana call back with bed assignment and acceptance by Dr Shadi Mcconnell and bed assignment room ICU 13 primary nurse to call report to [phone] . 1999 consent sign Mother at bed side both verbalized understanding. EMS set up now awaiting for EMS. Bhavesh marmolejo
[2020-01-04] MEDS ORDERED: PANTOPRAZOLE 40 MG/VIAL IVP SCH (21:00)
[2020-01-04] MEDS ORDERED: HYDROMORPHONE HCL 0.5 MG/0.5 ML ML ONE (21:11)
[2020-01-04] MEDS ORDERED: HYDROMORPHONE 1 MG/1 ML AMP ONE (21:12)
--- NOTE | 2020-01-04 21:30 | NUR ---
TRANSFER AMBULANCE HERE TO TAKE HIM TO R.
[2020-02-01] MEDS ORDERED: METO-472 PO (20:59)
[2020-02-01] MEDS ORDERED: PARO10TA87 PO (20:59)
[2020-02-01] MEDS ORDERED: LABE5VIA3 IV (21:02)
[2020-02-01] MEDS ORDERED: PHEN177S35 MM (21:03)
[2020-02-01] MEDS ORDERED: OXYC5CAP19 PO (21:10)
[2020-02-02] MEDS ORDERED: DOCU-116 PO (01:54)
[2020-02-02] MEDS ORDERED: POLY17PO4 PO (01:54)
[2020-02-02] MEDS ORDERED: [UNRECOGNIZED DRUG - CODE] SQ (01:58)
[2020-02-02] MEDS ORDERED: SCOP1PAT10 TD (01:59)
[2020-02-02] MEDS ORDERED: MERO1VIA IVPB (02:04)
[2020-02-02] MEDS ORDERED: [UNRECOGNIZED DRUG - CODE] IVPB (02:07)
[2020-02-02] MEDS ORDERED: MULT9LIQ PO (02:12)
[2020-02-16] MEDS ORDERED: Lipase/Protease/Amylase PO (16:11)
[2020-02-16] MEDS ORDERED: AMLO5TAB4 PO (16:11)
== END 2020-01-04 21:30 | disposition short-term general hospital (02) | DRG 438 ==
LOC: EDH 09:03 → EDHIP 09:04 → 3CH 13:36 → 2AH 10-02 11:52 → 4DH 10-04 17:13 → 4BH 10-23 18:05 → 3BH 11-21 15:25 → 3CH 12-21 02:43 → 4BH 12-23 06:30 → 4AH 12-23 11:50 → 4BH 12-23 11:51 → DAHIP 01-03 08:33 → 2BH 01-04 19:15
PROVIDERS: ADMIT Hospitalist; ATTEND Hospitalist
PROC: 0W9B3ZZ Drainage of Left Pleural Cavity, Percutaneous Approach (ICD-10-PCS; principal; 2019-10-01)
PROC: 0W9B3ZZ Drainage of Left Pleural Cavity, Percutaneous Approach (ICD-10-PCS; 2019-10-01)
PROC: 05HA33Z Insertion of Infusion Device into Left Brachial Vein, Percutaneous Approach (ICD-10-PCS; 2019-10-01)
PROC: 0T9130Z Drainage of Left Kidney with Drainage Device, Percutaneous Approach (ICD-10-PCS; 2019-10-01)
PROC: 0WJP8ZZ Inspection of Gastrointestinal Tract, Via Natural or Artificial Opening Endoscopic Approach (ICD-10-PCS; 2019-10-01)
DX: K85.20 Alcohol induced acute pancreatitis without necrosis or infection (principal); E43 Unspecified severe protein-calorie malnutrition; R65.10 Systemic inflammatory response syndrome (SIRS) of non-infectious origin without acute organ dysfunction; N17.9 Acute kidney failure, unspecified; F10.239 Alcohol dependence with withdrawal, unspecified; K58.0 Irritable bowel syndrome with diarrhea; F17.290 Nicotine dependence, other tobacco product, uncomplicated
CPT/HCPCS: 10030; 32555; 36415; 36430; 36600; 43237; 43752; 50432; 71045; 74018; 74160; 74176; 74177; 74178; 74181; 76700; 76770; 76942; 80048; 80053; 80061; 80076; 80202; 80305; 81001; 82040; 82140; 82150; 82248; 82270; 82550; 82570; 82728; 82803; 82948; 83036; 83540; 83550; 83605; 83690; 83735; 83874; 83880; 84100; 84132; 84145; 84300; 84443; 84484; 84540; 85014; 85018; 85025; 85027; 85610; 85651; 85730; 86140; 86850; 86900; 86901; 86922; 87040; 87077; 87088; 87103; 87186; 87206; 87633; 87635; 87804; 90732; 93005; 93306; 93971; 99156; 99157; 99291; A4606; C1729; C1769; C1894; C9113; G0378; J0330; J0360; J0696; J0885; J1170; J1200; J1450; J1644; J1650; J1756; J1885; J1956; J2020; J2060; J2185; J2248; J2250; J2405; J2543; J2550; J2704; J2997; J3010; J3370; J3411; J3475; J3480; J3490; J7030; J7040; J7042; J7050; J7120; P9016; Q2035; Q9963; Q9967

== ENCOUNTER 2020-02-01 12:30 | Inpatient (IN) | payer MEDICAID ==
[~2020-02-01] VITALS: Ht 154.9 cm; Wt 46.3 kg
[2020-02-01 17:00] VITALS: BP 141/97; PULSE 86; RESP 18; TEMP 98.1
--- NOTE | 2020-02-01 19:15 | NUR ---
RECEIVED REPORT FROM AVINASH YO. PT IS A NEW ADMISSION ARRIVING AT [facility] FLOOR ABOUT 1830, TRANSFERRED FROM [facility]. PT IS AAOx3. PT STATES HE IS CONSTANT ABDOMINAL PAIN. NGUYEN SINGH PENDING TO REVIEW MEDICATIONS. BED TO LOWEST LEVEL. CALL LIGHT WITHIN REACH. PT HAS AMADOU PICC LINE WITH 2 LUMENS. L[place]IS DRAIN ON LLQ. J TUBE LLQ, WAS ON JEVITY 1.2 AT 55CC/HR AT [facility], CABLE TELEVISION LINE TECHNICIAN CONSULT WILL BE ORDERED PER FRANCISCO. LUQ STOMA WITH A COLOSTOMY BAG.
[2020-02-01 19:17] VITALS: BP 142/89; PULSE 76; RESP 18; TEMP 98.2
[2020-02-01] MEDS ORDERED: OXYCODONE HCL 5 MG TAB ONE (22:09)
[2020-02-01] MEDS ORDERED: ONDANSETRON HCL 4 MG/2 ML VIAL ONE (22:43)
[2020-02-01] MEDS: ONDANSETRON HCL 4 MG/2 ML VIAL IVP PRN (22:47)
[2020-02-01 23:23] VITALS: BP 160/98; PULSE 77; RESP 16; TEMP 98.5
[2020-02-02] VITALS (7 sets, daily range): BP systolic 147–184; BP diastolic 97–112; PULSE 62–82; RESP 16–20; TEMP 98.3–98.7
[2020-02-02] MEDS ORDERED: LABETALOL HCL 5 MG/ML 20ML VIAL IV PRN
[2020-02-02] MEDS ORDERED: PHENOL 177 ML BOTTLE PO PRN (02:15)
[2020-02-02] MEDS ORDERED: HYDROMORPHONE HCL 0.5 MG/0.5 ML ML ONE (02:41)
[2020-02-02] MEDS ORDERED: HYDROMORPHONE HCL 2 MG/ML VIAL IVP ONE (02:45)
[2020-02-02] MEDS ORDERED: MICAFUNGIN SODIUM 100 MG IVPB SCH (02:45)
[2020-02-02] MEDS: OXYCODONE HCL 5 MG TAB PO PRN ×3 (05:53→21:07)
[2020-02-02] MEDS: MEROPENEM 1 GM VIAL IV SCH ×3 (05:53→23:39)
[2020-02-02] MEDS: SCOPOLAMINE HYDROBROMIDE 1 EACH ADH..PATCH TD SCH (07:33)
[2020-02-02] MEDS: OCTREOTIDE ACETATE 100 MCG/ML AMP SQ SCH ×3 (07:33→23:46)
[2020-02-02] MEDS ORDERED: MULTIVITS W-MIN/FERROUS GLUC 237 ML BOTTLE PO SCH (09:00)
[2020-02-02] MEDS: POLYETHYLENE GLYCOL 3350 17 GM POWD.PACK PO SCH (10:20)
[2020-02-02] MEDS: MULTIVITAMINS/MINERALS/IRO TAB PO SCH (10:20)
[2020-02-02] MEDS: DOCUSATE SODIUM 100 MG CAP PO SCH ×2 (10:20→21:07)
[2020-02-02] MEDS: METOPROLOL TARTRATE 50 MG TAB PO SCH ×2 (10:21→21:07)
[2020-02-02] MEDS: MICAFUNGIN 100MG+NS 100ML 100 ML IV SCH (10:21)
[2020-02-02] MEDS: PAROXETINE HCL 20 MG TABLET PO SCH (10:21)
[2020-02-02] MEDS: HEPARIN SODIUM 5000UNIT/ML 1ML VIAL SQ SCH ×2 (10:31→21:14)
[2020-02-02] MEDS ORDERED: KETOROLAC TROMETHAMINE 30MG/ML IM PRN (12:00)
[2020-02-02] MEDS: AMLODIPINE BESYLATE 5 MG TAB PO SCH (12:00)
[2020-02-02] MEDS ORDERED: AMLODIPINE BESYLATE 5 MG TAB ONE (12:29)
[2020-02-02] MEDS ORDERED: PHARMACY COMMUNICATION MISC SCH ×2 (12:45→13:15)
--- NOTE | 2020-02-02 14:21 | NUR ---
RD NOTIFICATION - TUBE FEEDING RECOMMENDATIONS Pt with J-TUBE secondary to Pancreatitis with Pseudocyst. Recommend initiate Jevity 1.5 @20mls/hr for first 5 hours. Increase rate as tolerated by 5mls every 5 hours to goal. Goal rate: 45mls/hr to provide 1620kcal, 69gm Protein, 821mls free H2O. Rec flushes: 150mls Q6hrs. Recommendations placed in Pt chart. NUTRITION NOTE: Pt admitted with Pancreatitis with infected pseudocyst. J-Tube placed. S/p Necrosectomy, colostomy bag. Colace, Miralax in place. Anthropometric error as per AVINASH Fry (Height error): Pt Ht: 5'11", BMI 16.2. Tube Feeding nutrition calculated to increased nutrient needs. RD to continue to monitor. Please notify as additional nutrition concerns arise. Thank you. Addendum: 02/02/20 at [address] Amended: Links added.
--- NOTE | 2020-02-02 14:56 | NUR ---
DCP CM met with pt discussed dc plans. Pt is semi-independent prior to admission, was a transfer from [facility], prior to lives at home with mother. Denies any equipments/services. Feels safe to go back home, mother able to assist with transportation and needs as necessary. DC plan to home once stable. CM to cont to follow up. Addendum: 02/02/20 at 1457 by RENALDO SANCHEZ LVN CM Amended: Links added.
[2020-02-02] MEDS: KETOROLAC TROMETHAMINE 30MG/ML IV PRN ×2 (15:46→23:39)
[2020-02-03 03:38] VITALS: BP 151/107; PULSE 61; RESP 18; TEMP 97.5
[2020-02-03] MEDS: OXYCODONE HCL 5 MG TAB PO PRN ×3 (04:00→20:15)
[2020-02-03] MEDS: MEROPENEM 1 GM VIAL IV SCH ×3 (06:25→21:56)
[2020-02-03] MEDS: OCTREOTIDE ACETATE 100 MCG/ML AMP SQ SCH ×3 (06:25→21:56)
[2020-02-03 07:00] VITALS: BP 152/94; PULSE 65; RESP 18; TEMP 98.2
[2020-02-03] MEDS: KETOROLAC TROMETHAMINE 30MG/ML IV PRN ×2 (07:02→15:51)
[2020-02-03] MEDS: MICAFUNGIN 100MG+NS 100ML 100 ML IV SCH (08:20)
[2020-02-03] MEDS: POLYETHYLENE GLYCOL 3350 17 GM POWD.PACK PO SCH (08:20)
[2020-02-03] MEDS: METOPROLOL TARTRATE 50 MG TAB PO SCH ×2 (08:21→20:13)
[2020-02-03] MEDS: PAROXETINE HCL 20 MG TABLET PO SCH (08:22)
[2020-02-03] MEDS: AMLODIPINE BESYLATE 5 MG TAB PO SCH (08:23)
[2020-02-03] MEDS: MULTIVITAMINS/MINERALS/IRO TAB PO SCH (08:24)
[2020-02-03] MEDS: DOCUSATE SODIUM 100 MG CAP PO SCH ×2 (08:24→20:13)
[2020-02-03] MEDS: HEPARIN SODIUM 5000UNIT/ML 1ML VIAL SQ SCH ×2 (08:54→21:40)
[2020-02-03 11:00] VITALS: BP 138/97; PULSE 60; RESP 18; TEMP 98.2
--- NOTE | 2020-02-03 14:40 | NUR ---
MESSAGE LEFT AT DR BURK OFFICE INFORMING OF CONSULT; PENDING CALL BACK
[2020-02-03] MEDS ORDERED: NON-FORMULARY MEDICATION 1 EACH PO SCH (15:15)
--- NOTE | 2020-02-03 15:59 | NUR ---
I SPOKE TO NGUYEN HALL AND INFORMED HER DR DAWN'S GOVERNMENT SERVICES PROFESSIONAL FOR GI NOT DR HARPER AND SHE STATED TO CONSULT WHOM EVER IS GOVERNMENT SERVICES PROFESSIONAL NOT NECESSARILY DR ROTHMAN; I CALLED DR CORLEY OFFICE AND INFORMED JACOB AT HER OFFICE OF CONSULT.
[2020-02-03 16:00] VITALS: BP 136/92; PULSE 68; RESP 18; TEMP 98.2
--- NOTE | 2020-02-03 16:25 | NUR ---
RD UPDATE RD Notification to assess for supplemental tube feedings. 6 Small meals diet modification added to diet order. RD spoke with Pt to update food preferences and assess. Recommend to initiate Calorie Count x 2 days. Pt Services Notified. Ensure QD added per Pt request. RD to continue to monitor.
--- NOTE | 2020-02-03 17:47 | NUR ---
I RECEIVED A CALL BACK FROM DR DAWN'S AND INFORMED HER OF NEW CONSULT; SHE ASKED IF OLD RECORDS WERE IN CHART AND I TOLD HER YES RECORDS FROM [facility] IN CHART; SHE SAID SHE WOULD REVIEW AND SEE PT TOMORROW
[2020-02-03 20:00] VITALS: BP 141/92; PULSE 70; RESP 18; TEMP 98.2
[2020-02-03 23:39] VITALS: BP 149/87; PULSE 70; RESP 18; TEMP 97.9
[2020-02-04] MEDS: KETOROLAC TROMETHAMINE 30MG/ML IV PRN ×3 (00:18→22:35)
[2020-02-04] MEDS: OXYCODONE HCL 5 MG TAB PO PRN ×3 (03:09→18:50)
[2020-02-04 03:43] VITALS: BP 138/88; PULSE 64; RESP 18; TEMP 97.8
--- NOTE | 2020-02-04 04:00 | NUR ---
PT COMPLAINS OF PAIN TO BACK AND ABD AREA WHERE INJECTIONS ARE BEING GIVEN. COLOSTOMY DRAINED. ATTEMPTED TO DECLOG JTUBE. PICC LINE PATENT. ABLE TO VOID. LIGHT JOSE D URINE. NO DISTRESS NOTED. GIVEN TORADOL AND OXYCODONE FOR PAIN.
[2020-02-04] MEDS: OCTREOTIDE ACETATE 100 MCG/ML AMP SQ SCH ×3 (06:20→20:00)
[2020-02-04] MEDS: MEROPENEM 1 GM VIAL IV SCH ×3 (06:20→19:47)
[2020-02-04 08:00] VITALS: BP 134/92; PULSE 59; RESP 16; TEMP 98.3
[2020-02-04] MEDS: MICAFUNGIN 100MG+NS 100ML 100 ML IV SCH (09:50)
[2020-02-04] MEDS: MULTIVITAMINS/MINERALS/IRO TAB PO SCH (09:50)
[2020-02-04] MEDS: PAROXETINE HCL 20 MG TABLET PO SCH (09:51)
[2020-02-04] MEDS: AMLODIPINE BESYLATE 5 MG TAB PO SCH (09:51)
[2020-02-04] MEDS: DOCUSATE SODIUM 100 MG CAP PO SCH ×2 (09:51→19:49)
[2020-02-04] MEDS: METOPROLOL TARTRATE 50 MG TAB PO SCH ×2 (09:51→19:49)
[2020-02-04] MEDS: POLYETHYLENE GLYCOL 3350 17 GM POWD.PACK PO SCH (09:51)
[2020-02-04] MEDS: HEPARIN SODIUM 5000UNIT/ML 1ML VIAL SQ SCH ×2 (09:52→20:05)
[2020-02-04 11:00] VITALS: BP 120/80; PULSE 74; RESP 19; TEMP 98.2
[2020-02-04 15:48] VITALS: BP 121/74; PULSE 71; RESP 16; TEMP 97.8
[2020-02-04] MEDS: LIPASE/PROTEASE/AMYLASE 5000/17000/24000 PO SCH ×2 (17:00→19:47)
[2020-02-04 21:22] VITALS: BP 127/87; PULSE 83; RESP 20; TEMP 99.9
--- NOTE | 2020-02-04 22:00 | NUR ---
spoke with aspen owen on the phone about patient's temperature of 99.9. he ordered 650 mg of tynelol every 4 hours prn for fever and stat chest x-ray.
[2020-02-04] MEDS: ACETAMINOPHEN 325 MG TAB PO PRN (22:35)
[2020-02-05 00:12] VITALS: BP 128/88; PULSE 68; RESP 20; TEMP 97.8
[2020-02-05] MEDS: OXYCODONE HCL 5 MG TAB PO PRN ×2 (03:45→11:32)
[2020-02-05] MEDS: ACETAMINOPHEN 325 MG TAB PO PRN (03:46)
[2020-02-05 04:32] VITALS: BP 147/82; PULSE 61; RESP 20; TEMP 97.5
[2020-02-05] MEDS: KETOROLAC TROMETHAMINE 30MG/ML IV PRN ×3 (05:36→22:29)
[2020-02-05] MEDS: MEROPENEM 1 GM VIAL IV SCH ×3 (05:36→20:02)
[2020-02-05] MEDS: OCTREOTIDE ACETATE 100 MCG/ML AMP SQ SCH ×3 (05:36→20:03)
[2020-02-05] MEDS: LIPASE/PROTEASE/AMYLASE 5000/17000/24000 PO SCH ×3 (05:37→17:27)
[2020-02-05] MEDS: SCOPOLAMINE HYDROBROMIDE 1 EACH ADH..PATCH TD SCH (05:37)
[2020-02-05 08:00] VITALS: BP 129/90; PULSE 55; RESP 16; TEMP 97.8
[2020-02-05] MEDS: MICAFUNGIN 100MG+NS 100ML 100 ML IV SCH (09:00)
[2020-02-05 11:00] VITALS: BP 120/85; PULSE 59; RESP 18; TEMP 97.9
[2020-02-05] MEDS: POLYETHYLENE GLYCOL 3350 17 GM POWD.PACK PO SCH (11:12)
[2020-02-05] MEDS: METOPROLOL TARTRATE 50 MG TAB PO SCH ×2 (11:13→20:02)
[2020-02-05] MEDS: DOCUSATE SODIUM 100 MG CAP PO SCH ×2 (11:14→20:02)
[2020-02-05] MEDS: PAROXETINE HCL 20 MG TABLET PO SCH (11:14)
[2020-02-05] MEDS: AMLODIPINE BESYLATE 5 MG TAB PO SCH (11:15)
[2020-02-05] MEDS: MULTIVITAMINS/MINERALS/IRO TAB PO SCH (11:18)
[2020-02-05] MEDS: HEPARIN SODIUM 5000UNIT/ML 1ML VIAL SQ SCH ×2 (11:34→20:04)
[2020-02-05 16:00] VITALS: BP 127/90; PULSE 64; RESP 19; TEMP 98.1
--- NOTE | 2020-02-05 19:34 | NUR ---
called doctor hillman about patient's clogged j tube. she said to flush the tube with coke or sprite or flush a capsule of pancreatic enzyme
--- NOTE | 2020-02-05 22:00 | NUR ---
tried to unclog feeding tube with dr. mirza and various attempts were unsuccessful. i tried to use water with lipase enzyme capsules as ordered by dr. hillman and i was unsuccessful again. will continue to try. -
[2020-02-05 22:05] VITALS: BP 134/97; PULSE 70; RESP 20; TEMP 97.7
[2020-02-06 01:11] VITALS: BP 144/82; PULSE 58; RESP 20; TEMP 97.7
--- NOTE | 2020-02-06 01:48 | NUR ---
spoke with aspen owen manpower development specialist manager hospitalist about patient's clogged feeding tube. he told me to let doctor kady know in the am.
[2020-02-06] MEDS: MEROPENEM 1 GM VIAL IV SCH ×3 (04:17→21:26)
[2020-02-06] MEDS: OCTREOTIDE ACETATE 100 MCG/ML AMP SQ SCH ×3 (04:17→21:27)
[2020-02-06] MEDS: OXYCODONE HCL 5 MG TAB PO PRN ×3 (04:36→18:24)
[2020-02-06 05:56] VITALS: BP 152/96; PULSE 72; RESP 20; TEMP 98.2
[2020-02-06 07:45] VITALS: BP 139/79; PULSE 77; RESP 16; TEMP 98
[2020-02-06] MEDS: MULTIVITAMINS/MINERALS/IRO TAB PO SCH (09:00)
[2020-02-06] MEDS: LIPASE/PROTEASE/AMYLASE 5000/17000/24000 PO SCH ×3 (10:07→17:00)
[2020-02-06] MEDS: DOCUSATE SODIUM 100 MG CAP PO SCH ×2 (10:08→21:26)
[2020-02-06] MEDS: METOPROLOL TARTRATE 50 MG TAB PO SCH ×2 (10:09→21:27)
[2020-02-06] MEDS: POLYETHYLENE GLYCOL 3350 17 GM POWD.PACK PO SCH (10:09)
[2020-02-06] MEDS: PAROXETINE HCL 20 MG TABLET PO SCH (10:10)
[2020-02-06] MEDS: AMLODIPINE BESYLATE 5 MG TAB PO SCH (10:10)
[2020-02-06] MEDS: HEPARIN SODIUM 5000UNIT/ML 1ML VIAL SQ SCH ×2 (10:17→21:28)
[2020-02-06 11:07] VITALS: BP 150/90; PULSE 92; RESP 16; TEMP 98.1
--- NOTE | 2020-02-06 11:30 | NUR ---
Visited with patient. states in better spirits, glad to be 'back here' at [facility]. more optimistic, feels better, and has upper arm stretch bands at the side of the bed that patient is using. Will follow up with re: goals for recovery prior to DC Addendum: 02/06/20 at 1322 by ANNE RAMIREZ RN CM Amended: Links added.
--- NOTE | 2020-02-06 11:34 | NUR ---
RD FOLLOW UP Pt with incomplete Calorie Count. Poor PO intake at 25% per meal. Pt reports received supplemental tube feedings (Jevity 1.2 @55mls/hr) with Oral diet order at previous facility. Incorrect height recorded in system. Actual Height: 5'11" as per Pt. Actual BMI 14.4. Clogged J-Tube as per EMR. Recommend initiate supplemental Tube Feeding Regimen provided, as medically feasible (Jevity 1.5 initiated at 20mls, adv to goal as tolerated (45mls/hr) RD to continue to monitor Pt weight, nutritional labs, nutrition status. Please notify as additional nutrition concerns arise. Thank you. Addendum: 02/06/20 at [address] Amended: Links added.
[2020-02-06] MEDS: MICAFUNGIN 100MG+NS 100ML 100 ML IV SCH (12:00)
--- NOTE | 2020-02-06 13:22 | NUR ---
EXPECTED DISPO TO HOME WITH MINIMAL SERVICES Addendum: 02/06/20 at 1323 by ANNE RAMIRZE RN CM Amended: Links added.
[2020-02-06] MEDS: KETOROLAC TROMETHAMINE 30MG/ML IV PRN (15:09)
[2020-02-06 16:09] VITALS: BP 121/80; PULSE 72; RESP 16; TEMP 98.8
[2020-02-06 20:00] VITALS: BP 122/94; PULSE 75; RESP 16; TEMP 98
[2020-02-07] VITALS (7 sets, daily range): BP systolic 114–138; BP diastolic 76–96; PULSE 57–88; RESP 16–20; TEMP 97.3–98.4
[2020-02-07] MEDS: OXYCODONE HCL 5 MG TAB PO PRN ×5 (03:46→23:26)
[2020-02-07] MEDS: OCTREOTIDE ACETATE 100 MCG/ML AMP SQ SCH ×3 (05:46→22:04)
[2020-02-07] MEDS: MEROPENEM 1 GM VIAL IV SCH ×3 (05:46→22:00)
[2020-02-07] MEDS: ONDANSETRON HCL 4 MG/2 ML VIAL IVP PRN (05:52)
[2020-02-07] MEDS: KETOROLAC TROMETHAMINE 30MG/ML IV PRN (06:11)
[2020-02-07] MEDS: HEPARIN SODIUM 5000UNIT/ML 1ML VIAL SQ SCH ×2 (09:00→19:32)
[2020-02-07] MEDS: LIPASE/PROTEASE/AMYLASE 5000/17000/24000 PO SCH ×3 (10:31→17:00)
[2020-02-07] MEDS: DOCUSATE SODIUM 100 MG CAP PO SCH ×2 (10:32→19:32)
[2020-02-07] MEDS: METOPROLOL TARTRATE 50 MG TAB PO SCH ×2 (10:32→19:33)
[2020-02-07] MEDS: PAROXETINE HCL 20 MG TABLET PO SCH (10:33)
[2020-02-07] MEDS: AMLODIPINE BESYLATE 5 MG TAB PO SCH (10:33)
[2020-02-07] MEDS: POLYETHYLENE GLYCOL 3350 17 GM POWD.PACK PO SCH (10:35)
[2020-02-07] MEDS: MICAFUNGIN 100MG+NS 100ML 100 ML IV SCH (17:48)
[2020-02-07] MEDS: MULTIVITAMINS/MINERALS/IRO TAB PO SCH (17:49)
[2020-02-08 03:49] VITALS: BP 136/90; PULSE 60; RESP 16; TEMP 98.3
[2020-02-08] MEDS: OCTREOTIDE ACETATE 100 MCG/ML AMP SQ SCH ×4 (05:37→22:07)
[2020-02-08] MEDS: MEROPENEM 1 GM VIAL IV SCH ×3 (05:37→22:00)
[2020-02-08] MEDS: HEPARIN SODIUM 5000UNIT/ML 1ML VIAL SQ SCH ×2 (09:00→21:00)
[2020-02-08] MEDS: POLYETHYLENE GLYCOL 3350 17 GM POWD.PACK PO SCH (09:17)
[2020-02-08] MEDS: MULTIVITAMINS/MINERALS/IRO TAB PO SCH (09:17)
[2020-02-08] MEDS: PAROXETINE HCL 20 MG TABLET PO SCH (09:17)
[2020-02-08] MEDS: LIPASE/PROTEASE/AMYLASE 5000/17000/24000 PO SCH ×3 (09:17→16:41)
[2020-02-08] MEDS: DOCUSATE SODIUM 100 MG CAP PO SCH ×2 (09:18→21:59)
[2020-02-08] MEDS: AMLODIPINE BESYLATE 5 MG TAB PO SCH (09:19)
[2020-02-08] MEDS: METOPROLOL TARTRATE 50 MG TAB PO SCH ×2 (09:19→21:58)
[2020-02-08 09:56] VITALS: BP 133/96; PULSE 59; RESP 18; TEMP 98.6
[2020-02-08] MEDS: MICAFUNGIN 100MG+NS 100ML 100 ML IV SCH (10:08)
[2020-02-08] MEDS: SCOPOLAMINE HYDROBROMIDE 1 EACH ADH..PATCH TD SCH (10:10)
[2020-02-08] MEDS: ONDANSETRON HCL 4 MG/2 ML VIAL IVP PRN (10:18)
[2020-02-08 12:17] VITALS: BP 148/94; PULSE 67; RESP 18; TEMP 97.9
[2020-02-08] MEDS: OXYCODONE HCL 5 MG TAB PO PRN ×2 (14:57→22:00)
[2020-02-08 17:09] VITALS: PULSE 72; RESP 16; TEMP 97.7
[2020-02-08 19:30] VITALS: BP 152/106; PULSE 71; RESP 17; TEMP 97.9
[2020-02-08 23:45] VITALS: BP 146/108; PULSE 70; RESP 17; TEMP 98.1
[2020-02-09 03:30] VITALS: BP 146/91; PULSE 60; RESP 17; TEMP 97.9
[2020-02-09] MEDS: MEROPENEM 1 GM VIAL IV SCH ×3 (05:30→20:08)
[2020-02-09 07:43] VITALS: BP 130/97; PULSE 65; RESP 16; TEMP 97.4
[2020-02-09] MEDS: HEPARIN SODIUM 5000UNIT/ML 1ML VIAL SQ SCH ×2 (09:00→20:07)
[2020-02-09] MEDS: MULTIVITAMINS/MINERALS/IRO TAB PO SCH (09:00)
[2020-02-09] MEDS: METOPROLOL TARTRATE 50 MG TAB PO SCH ×2 (09:30→20:09)
[2020-02-09] MEDS: AMLODIPINE BESYLATE 5 MG TAB PO SCH (09:30)
[2020-02-09] MEDS: MICAFUNGIN 100MG+NS 100ML 100 ML IV SCH (09:30)
[2020-02-09] MEDS: LIPASE/PROTEASE/AMYLASE 5000/17000/24000 PO SCH ×3 (09:30→16:13)
[2020-02-09] MEDS: PAROXETINE HCL 20 MG TABLET PO SCH (09:31)
[2020-02-09] MEDS: POLYETHYLENE GLYCOL 3350 17 GM POWD.PACK PO SCH (09:31)
[2020-02-09] MEDS: DOCUSATE SODIUM 100 MG CAP PO SCH ×2 (09:31→20:09)
[2020-02-09] MEDS: OCTREOTIDE ACETATE 100 MCG/ML AMP SQ SCH ×2 (09:32→20:07)
[2020-02-09] MEDS ORDERED: OXYCODONE HCL 5 MG TAB ONE (09:53)
[2020-02-09 10:43] VITALS: BP 115/84; PULSE 79; RESP 16; TEMP 97.7
[2020-02-09] MEDS: OXYCODONE HCL 5 MG TAB PO PRN ×2 (12:03→20:17)
--- NOTE | 2020-02-09 15:49 | NUR ---
RD UPDATE Pt continues with GI Soft, 6 small meals per day diet order. Ensure in place. Pt remains with clogged feeding tube as per EMR. RD to continue to monitor. Please notify as additional nutrition concerns arise. Thank you.
[2020-02-09 15:54] VITALS: BP 130/95; PULSE 65; RESP 16; TEMP 98.2
[2020-02-09 19:05] VITALS: BP 138/91; PULSE 80; RESP 17; TEMP 98.3
[2020-02-09 23:42] VITALS: BP 144/91; PULSE 68; RESP 17; TEMP 98.1
[2020-02-10] MEDS: OCTREOTIDE ACETATE 100 MCG/ML AMP SQ SCH ×3 (02:11→21:44)
[2020-02-10 03:15] VITALS: BP 150/89; PULSE 79; RESP 17; TEMP 97.9
[2020-02-10] MEDS: MEROPENEM 1 GM VIAL IV SCH ×3 (05:00→21:44)
[2020-02-10 08:00] VITALS: BP 147/89; PULSE 86; RESP 16; TEMP 98.2
[2020-02-10] MEDS: LIPASE/PROTEASE/AMYLASE 5000/17000/24000 PO SCH ×3 (08:00→18:22)
[2020-02-10] MEDS: HEPARIN SODIUM 5000UNIT/ML 1ML VIAL SQ SCH ×2 (09:00→21:00)
[2020-02-10] MEDS: OXYCODONE HCL 5 MG TAB PO PRN ×2 (10:39→21:53)
[2020-02-10] MEDS: METOPROLOL TARTRATE 50 MG TAB PO SCH ×2 (10:40→21:36)
[2020-02-10] MEDS: PAROXETINE HCL 20 MG TABLET PO SCH (10:44)
[2020-02-10] MEDS: DOCUSATE SODIUM 100 MG CAP PO SCH ×2 (10:44→21:36)
[2020-02-10] MEDS: POLYETHYLENE GLYCOL 3350 17 GM POWD.PACK PO SCH (10:45)
[2020-02-10] MEDS: AMLODIPINE BESYLATE 5 MG TAB PO SCH (10:45)
[2020-02-10] MEDS: MICAFUNGIN 100MG+NS 100ML 100 ML IV SCH (10:45)
[2020-02-10 11:41] VITALS: BP 119/90; RESP 16; TEMP 97.7
--- NOTE | 2020-02-10 14:00 | NUR ---
JAYE SURGEON AT BEDSIDE STATES WE WILL NOT TAKE PATIENT SINCE DR. ZIMMERMAN IS NOT WORKING FOR NOW AND DR. MARTINEZ WILL NOT TAKE PATIENT FOR HIM SINCE SHE IS NOT CAPTAIN WAITER/WAITRESS.
--- NOTE | 2020-02-10 14:49 | NUR ---
pt refusing Zenpep, states is not hungry so does not need them.
--- NOTE | 2020-02-10 14:50 | NUR ---
DR. MARROQUIN OF PATIENT REFUSING ZENPEP STATES CONTINUE TO ENCOURAGE TO TAKE AND THE IMPORTANCE OF TAKING IT. PATIENT AGREED TO TAKE IT TONIGHT.
[2020-02-10] MEDS: MULTIVITAMINS/MINERALS/IRO TAB PO SCH (14:57)
[2020-02-10 16:00] VITALS: BP 110/75; PULSE 77; RESP 18; TEMP 98
[2020-02-10 19:57] VITALS: BP 118/77; PULSE 91; RESP 20; TEMP 97.9
[2020-02-10 23:41] VITALS: BP 127/89; PULSE 79; RESP 16; TEMP 98.1
[2020-02-11 04:07] VITALS: BP 121/60; PULSE 68; RESP 16; TEMP 97.9
[2020-02-11] MEDS: MEROPENEM 1 GM VIAL IV SCH ×3 (05:57→22:14)
[2020-02-11] MEDS: OCTREOTIDE ACETATE 100 MCG/ML AMP SQ SCH ×3 (06:30→22:30)
[2020-02-11] MEDS: SCOPOLAMINE HYDROBROMIDE 1 EACH ADH..PATCH TD SCH (06:30)
[2020-02-11 09:17] VITALS: BP 117/87; PULSE 70; RESP 16; TEMP 97.9
[2020-02-11 11:30] VITALS: BP 110/73; PULSE 87; RESP 18; TEMP 97.9
[2020-02-11] MEDS: MICAFUNGIN 100MG+NS 100ML 100 ML IV SCH (11:47)
[2020-02-11] MEDS: DOCUSATE SODIUM 100 MG CAP PO SCH ×2 (11:56→22:14)
[2020-02-11] MEDS: AMLODIPINE BESYLATE 5 MG TAB PO SCH (11:56)
[2020-02-11] MEDS: LIPASE/PROTEASE/AMYLASE 5000/17000/24000 PO SCH ×2 (11:57→19:15)
[2020-02-11] MEDS: MULTIVITAMINS/MINERALS/IRO TAB PO SCH (11:58)
[2020-02-11] MEDS: METOPROLOL TARTRATE 50 MG TAB PO SCH ×2 (11:58→22:14)
[2020-02-11] MEDS: OXYCODONE HCL 5 MG TAB PO PRN (12:01)
[2020-02-11] MEDS: PAROXETINE HCL 20 MG TABLET PO SCH (12:02)
[2020-02-11] MEDS: POLYETHYLENE GLYCOL 3350 17 GM POWD.PACK PO SCH (12:05)
[2020-02-11 16:42] VITALS: BP 121/86; PULSE 73; RESP 16; TEMP 98.3
[2020-02-11 20:43] VITALS: BP 110/80; PULSE 78; RESP 20; TEMP 97.9
[2020-02-11] MEDS: HEPARIN SODIUM 5000UNIT/ML 1ML VIAL SQ SCH (21:00)
[2020-02-11 23:48] VITALS: BP 132/93; PULSE 88; RESP 16; TEMP 97.8
[2020-02-12 03:51] VITALS: BP 130/95; PULSE 80; RESP 16; TEMP 97.9
[2020-02-12] MEDS: OCTREOTIDE ACETATE 100 MCG/ML AMP SQ SCH ×4 (06:30→20:57)
[2020-02-12 08:33] VITALS: BP 122/88; PULSE 91; RESP 19; TEMP 97.7
[2020-02-12] MEDS: MULTIVITAMINS/MINERALS/IRO TAB PO SCH (09:00)
[2020-02-12] MEDS: HEPARIN SODIUM 5000UNIT/ML 1ML VIAL SQ SCH ×3 (09:00→20:57)
[2020-02-12] MEDS: LIPASE/PROTEASE/AMYLASE 5000/17000/24000 PO SCH ×3 (09:10→17:00)
[2020-02-12] MEDS: METOPROLOL TARTRATE 50 MG TAB PO SCH ×2 (09:12→20:47)
[2020-02-12] MEDS: PAROXETINE HCL 20 MG TABLET PO SCH (09:12)
[2020-02-12] MEDS: MICAFUNGIN 100MG+NS 100ML 100 ML IV SCH (09:13)
[2020-02-12] MEDS: AMLODIPINE BESYLATE 5 MG TAB PO SCH (09:13)
[2020-02-12] MEDS: DOCUSATE SODIUM 100 MG CAP PO SCH ×2 (09:13→20:47)
[2020-02-12] MEDS: POLYETHYLENE GLYCOL 3350 17 GM POWD.PACK PO SCH (09:15)
[2020-02-12 12:03] VITALS: BP 128/91; PULSE 110; RESP 20; TEMP 98
[2020-02-12 16:00] VITALS: BP 114/81; PULSE 84; RESP 16; TEMP 98.4
[2020-02-12 19:30] VITALS: BP 115/74; PULSE 95; RESP 18; TEMP 98.4
[2020-02-12 23:34] VITALS: BP 150/80; PULSE 92; RESP 18; TEMP 98.2
[2020-02-13] MEDS: OCTREOTIDE ACETATE 100 MCG/ML AMP SQ SCH ×3 (03:59→22:13)
[2020-02-13 04:00] VITALS: BP 131/86; PULSE 91; RESP 18; TEMP 98.2
[2020-02-13] MEDS: OXYCODONE HCL 5 MG TAB PO PRN (05:15)
[2020-02-13] MEDS: MULTIVITAMINS/MINERALS/IRO TAB PO SCH (09:00)
[2020-02-13 09:05] VITALS: BP 117/95; PULSE 103; RESP 18; TEMP 98.1
[2020-02-13] MEDS: HEPARIN SODIUM 5000UNIT/ML 1ML VIAL SQ SCH ×2 (10:24→21:00)
[2020-02-13] MEDS: MICAFUNGIN 100MG+NS 100ML 100 ML IV SCH (10:25)
[2020-02-13] MEDS: METOPROLOL TARTRATE 50 MG TAB PO SCH ×2 (10:26→21:08)
[2020-02-13] MEDS: POLYETHYLENE GLYCOL 3350 17 GM POWD.PACK PO SCH (10:26)
[2020-02-13] MEDS: DOCUSATE SODIUM 100 MG CAP PO SCH ×2 (10:26→21:08)
[2020-02-13] MEDS: PAROXETINE HCL 20 MG TABLET PO SCH (10:26)
[2020-02-13] MEDS: AMLODIPINE BESYLATE 5 MG TAB PO SCH (10:26)
[2020-02-13 12:53] VITALS: BP 112/80; PULSE 102; RESP 16; TEMP 96.4
[2020-02-13 16:00] VITALS: BP_SYST 107; BP_SYST 122; BP_DIAS 72; BP_DIAS 86; PULSE 117; PULSE 96; RESP 16; RESP 20; TEMP 97.6; TEMP 99.4
[2020-02-13 20:00] VITALS: BP 121/86; PULSE 89; RESP 18; TEMP 98.6
[2020-02-14] VITALS: BP 126/88; PULSE 97; RESP 16; TEMP 97.9
[2020-02-14 04:00] VITALS: BP 118/84; PULSE 98; RESP 16; TEMP 98.5
[2020-02-14] MEDS: OCTREOTIDE ACETATE 100 MCG/ML AMP SQ SCH ×3 (05:36→21:44)
[2020-02-14] MEDS: SCOPOLAMINE HYDROBROMIDE 1 EACH ADH..PATCH TD SCH (05:43)
--- NOTE | 2020-02-14 06:40 | NUR ---
STATUS Pt had an uneventful night.
[2020-02-14 08:00] VITALS: BP 116/89; PULSE 98; RESP 18; TEMP 98.2
[2020-02-14] MEDS: MULTIVITAMINS/MINERALS/IRO TAB PO SCH (09:00)
[2020-02-14] MEDS: HEPARIN SODIUM 5000UNIT/ML 1ML VIAL SQ SCH ×2 (09:00→21:00)
[2020-02-14 12:07] VITALS: BP 112/82; PULSE 112; RESP 18; TEMP 98.5
[2020-02-14] MEDS: DOCUSATE SODIUM 100 MG CAP PO SCH ×2 (12:12→21:44)
[2020-02-14] MEDS: AMLODIPINE BESYLATE 5 MG TAB PO SCH (12:12)
[2020-02-14] MEDS: METOPROLOL TARTRATE 50 MG TAB PO SCH ×2 (12:13→21:44)
[2020-02-14] MEDS: POLYETHYLENE GLYCOL 3350 17 GM POWD.PACK PO SCH (12:14)
[2020-02-14] MEDS: PAROXETINE HCL 20 MG TABLET PO SCH (12:15)
[2020-02-14] MEDS: MICAFUNGIN 100MG+NS 100ML 100 ML IV SCH (12:15)
[2020-02-14] MEDS: LIPASE/PROTEASE/AMYLASE 5000/17000/24000 PO SCH ×2 (12:15→17:00)
--- NOTE | 2020-02-14 15:00 | NUR ---
RD FOLLOW UP Pt tolerating GI soft/Dana diet order, 6 small meals. Ensure daily. PO intake at 50%. Pt with colostomy. Home Health discharge planning as per EMR. Pancreatic enzymes in place. Recommend continue current diet order. RD to continue to monitor. Addendum: 02/14/20 at [address] Amended: Links added.
[2020-02-14 16:00] VITALS: BP 113/73; PULSE 87; RESP 18; TEMP 98.5
[2020-02-14 19:30] VITALS: BP 128/89; PULSE 74; RESP 18; TEMP 98.4
[2020-02-15] VITALS: BP 125/79; PULSE 65; RESP 18; TEMP 98.7
[2020-02-15 04:00] VITALS: BP 119/84; PULSE 71; RESP 18; TEMP 98.9
[2020-02-15] MEDS: OCTREOTIDE ACETATE 100 MCG/ML AMP SQ SCH ×3 (05:51→22:00)
[2020-02-15 08:00] VITALS: BP 120/86; PULSE 77; RESP 18; TEMP 98.2
[2020-02-15] MEDS: LIPASE/PROTEASE/AMYLASE 5000/17000/24000 PO SCH ×3 (08:00→16:39)
[2020-02-15] MEDS: MULTIVITAMINS/MINERALS/IRO TAB PO SCH (09:00)
[2020-02-15] MEDS: DOCUSATE SODIUM 100 MG CAP PO SCH ×2 (09:00→21:00)
[2020-02-15] MEDS: METOPROLOL TARTRATE 50 MG TAB PO SCH ×2 (09:00→21:53)
[2020-02-15] MEDS: POLYETHYLENE GLYCOL 3350 17 GM POWD.PACK PO SCH (09:00)
[2020-02-15] MEDS: HEPARIN SODIUM 5000UNIT/ML 1ML VIAL SQ SCH ×2 (09:00→21:00)
[2020-02-15 10:52] VITALS: BP 118/76; PULSE 81; RESP 17; TEMP 98
--- NOTE | 2020-02-15 12:18 | NUR ---
REI Note: [facility] [employer] pending approval CM spoke to Omid guo/[facility] [employer], working on approval for pt. Pt currently pending approval at this time. Primary nurse aware. CM to cont to follow up.
--- NOTE | 2020-02-15 12:18 | NUR ---
REI Note: [facility] pending approval and delivery CM spoke to Taisha w/[facility], received request for colostomy bag and suppplies yesterday, working on approval and delivery, will touch base w/pt. Pt pending approval and delivery at this time. Primary nurse aware. CM to cont to follow up.
--- NOTE | 2020-02-15 12:53 | NUR ---
CM Note: [facility] denial, not in network CM spoke to November/[facility], unable to accept pt, medicaid traditional tx is not in network. Pt updated, agreeable to any HH that will accept. Primary nurse aware. CM to cont to follow up.
--- NOTE | 2020-02-15 12:54 | NUR ---
CM Note: [facility] vs [facility] pending approval CM faxed order, clinicals to [facility] and [facility], confirmation received. Pt pending approval and acceptance between [facility] vs [facility]. Primary nurse aware. CM to cont to follow up.
--- NOTE | 2020-02-15 13:11 | NUR ---
DR FALLON ROUNDED ORDERS TO DISCONTINUE ANTIBIOTICS, ANTIBIOTICS DISCONTINUED.
[2020-02-15] MEDS: PAROXETINE HCL 20 MG TABLET PO SCH (14:40)
[2020-02-15] MEDS: AMLODIPINE BESYLATE 5 MG TAB PO SCH (14:41)
--- NOTE | 2020-02-15 15:16 | NUR ---
CM Note: [employer] not in network CM spoke to Nette guo/Jeremie , verbalized insurance not in network, unable to accept pt. CM to cont to follow up.
--- NOTE | 2020-02-15 15:19 | NUR ---
CM Note: [employer] approval CM spoke to Christin guo/[employer], pt has approval. Primary nurse aware. CM to cont to follow up.
--- NOTE | 2020-02-15 15:20 | NUR ---
CM Note: [facility] approval CM spoke to Kelly Hsu, colostomy bag approved, will work on delivery at home. Pt will be given enough supplies temporarily until own supplies arrives. Primary nurse aware. CM to cont to follow up.
[2020-02-15 16:00] VITALS: BP 104/74; PULSE 85; RESP 17; TEMP 98.7
[2020-02-15 19:47] VITALS: BP 128/84; PULSE 87; RESP 16; TEMP 98.2
[2020-02-16 00:24] VITALS: BP 119/72; PULSE 76; RESP 18; TEMP 97.3
[2020-02-16 03:34] VITALS: BP 130/88; PULSE 79; RESP 18; TEMP 97.8
[2020-02-16] MEDS: OCTREOTIDE ACETATE 100 MCG/ML AMP SQ SCH ×2 (05:43→14:30)
[2020-02-16 07:31] VITALS: BP 127/89; PULSE 74; RESP 18; TEMP 97.8
[2020-02-16] MEDS: LIPASE/PROTEASE/AMYLASE 5000/17000/24000 PO SCH ×2 (08:00→10:35)
[2020-02-16] MEDS: MULTIVITAMINS/MINERALS/IRO TAB PO SCH (09:00)
[2020-02-16] MEDS: HEPARIN SODIUM 5000UNIT/ML 1ML VIAL SQ SCH (09:00)
[2020-02-16] MEDS: DOCUSATE SODIUM 100 MG CAP PO SCH (10:32)
[2020-02-16] MEDS: AMLODIPINE BESYLATE 5 MG TAB PO SCH (10:32)
[2020-02-16] MEDS: PAROXETINE HCL 20 MG TABLET PO SCH (10:33)
[2020-02-16] MEDS: POLYETHYLENE GLYCOL 3350 17 GM POWD.PACK PO SCH (10:34)
[2020-02-16] MEDS: METOPROLOL TARTRATE 50 MG TAB PO SCH (10:34)
[2020-02-16 11:19] VITALS: BP 129/86; PULSE 52; RESP 18; TEMP 98
[2020-02-16 15:36] VITALS: BP 116/78; PULSE 77; RESP 18; TEMP 98
--- NOTE | 2020-02-16 16:20 | NUR ---
PER DR. RUTHY ANDREW TO D/C HOME NO ANTIBIOTICS.
--- NOTE | 2020-02-16 18:30 | NUR ---
PATIENT D/C HOME USING TEACH BACK TECHNIQUE RE; NEW MEDS, S/S TO WATCH FOR AND WHEN TO CALL 911 OR DOCTORS SEEN BY. FOLLOW UP DR. MITCHELL IN 1 WEEK. HE IS YOUR SURGEON FROM [place]. FOLLOW UP WITH DR. DAWN IN 1 WEEK. CALL TO SET UP AN APPOINTMENT. [phone]. FOLLOW UP WITH YOUR PRIMARY DOCTOR IN 2-4 DAYS. YOU WILL RECEIVE A LIST OF DOCTOR TO CHOOSE FROM WITH YOUR DISCHARGE PAPER WORK. IF YOU NOTICE ANY FEVERS OF 101.0, DRAINAGE, REDNESS, PAIN OR HOT TO TOUCH FROM YOUR INCISIONS CALL YOUR SURGEON COULD MEAN YOU HAVE AN IFECTINON. PER YOUR INFECTIOUSE DISEASE DOCTOR AT [facility] [place] YOU DO NOT NEED A PRESCRIPTION FOR ANTIBIOTICS. MAKE SURE TO EMPTY YOUR DRAINS TWICE A DAY AT 7 AM AND AT 7PM. AND TO KEEP RECORD OF DRAINAGE. THEY WILL REMOVE YOUR BONY AT YOUR SURGEONS OFFICE. MAKE SURE TO CHANGE YOUR DRESSING IF SOILED. EDUCATIONS WAS GIVEN TO YOU AT BEDSIDE USING TEACH BACK TECHNIQUE. IF YOU ARE HAVING DIFFICULTY CHANGING DRESSING CALL YOUR HOME HEALTH NURSE. A [facility] HOME HEALTH NURSE WILL VISIT YOU IN AM. MAY CALL FOR ANY QUESTIONS. AT PHONE [phone]. MAKE SURE TO CALL THEM IN AM TO REMIND THEM THAT YOU ARE HOME. PICC LINE REMOVED, INTACT. NO BLEEDING. DRESSING IN PLACE. ALL FOUR DRESSING TO ABD AREA CHANGED USING TEACH BACK TECHNIQUE. NO REDNESS OR DRAINAGE OR S/S TO INFECTION. PATIENT AAOX3, NO DISTRESS. DENIES ANY QUESTIONS SINCE ALL WERE ANSWERED WITH D/C HOME INSTRUCTION.
--- NOTE | 2020-02-17 19:20 | NUR ---
Rec'd call from mother stating medications had not fully transmitted to pharmacy, was only able to pick up driver amlodipine. Clarified with CIRA Franks that pt is to continue only with metoprolol, zenpep, paxil, as well as amlodipine. Any PRNs such as docusate or miralax, Chloraseptic, would need to be purchased OTC. Updated pt's mom, and called rx's in to pt's pharmacy of choice. Spoke with pharmacist [place]. [place] [id number] [id number]. Per CIRA, ok to substitute.
== END 2020-02-16 19:15 | disposition home health service (06) | DRG 720 ==
LOC: 4CH 17:50 → 3BH 02-04 15:46
PROVIDERS: ADMIT Internal Medicine; ATTEND Internal Medicine
DX: A41.50 Gram-negative sepsis, unspecified (principal); K85.20 Alcohol induced acute pancreatitis without necrosis or infection; E46 Unspecified protein-calorie malnutrition; B49 Unspecified mycosis; K86.3 Pseudocyst of pancreas; J18.9 Pneumonia, unspecified organism; J90 Pleural effusion, not elsewhere classified; K94.13 Enterostomy malfunction; R65.20 Severe sepsis without septic shock; Z16.24 Resistance to multiple antibiotics; K52.9 Noninfective gastroenteritis and colitis, unspecified; D64.9 Anemia, unspecified; G89.29 Other chronic pain; N13.6 Pyonephrosis; Z87.442 Personal history of urinary calculi; Z87.891 Personal history of nicotine dependence; Y83.8 Other surgical procedures as the cause of abnormal reaction of the patient, or of later complication, without mention of misadventure at the time of the procedure; Z68.1 Body mass index [BMI] 19.9 or less, adult